=== PATIENT | female | born 1955 | race Caucasian/White ===

== ENCOUNTER 2017-02-05 18:33 | Emergency (ER) | payer MEDICARE, MEDICAID ==
[2017-02-05] MEDS ORDERED: Aspirin Low Dose CHEW TAB* 81 MG PO ONE (19:49)
--- NOTE | 2017-02-05 20:22 | ED ---
Brenda Xavier Matthew, scribed for Moi Barrientos MD on 02/05/17 at 2021 . HPI Chest Pain - HPI Summary HPI Summary: A 61 y/o female presents to the ED with intermittent mid sternal chest pain since 16:00. The pain is rated 4/10 in severity and described as dull. The patient was sitting when the pain began. She's had 6 episodes since her pain started. She took an aspirin [employer]. The patient had similar symptoms a month ago. - History of Current Complaint Chief Complaint: EDChestPainROMI Time Seen by Provider: 02/05/17 19:40 Hx Obtained From: Patient Onset/Duration: Started Hours Ago, Atraumatic, Still Present Time of Onset: 16:00 Timing: Intermittent Initial Severity: Moderate Current Severity: Moderate Pain Intensity: 4 Pain Scale Used: 0-10 Numeric Chest Pain Location: Mid Sternal Chest Pain Radiates: No Character: Dull/Aching Aggravating Factor(s): Nothing Alleviating Factor(s): Nothing Associated Signs and Symptoms: Positive: Chest Pain - Allergy/Home Medications Allergies/Adverse Reactions: Allergies Allergy/AdvReac Type Severity Reaction Status Date / Time Latex Allergy Unknown Verified 02/05/17 18:36 Reaction Details cleanig supplies Allergy Headache Uncoded 02/05/17 18:37 PMH/Surg Hx/FS Hx/Imm Hx Endocrine/Hematology History: Denies: Hx Diabetes Cardiovascular History: Reports: Hx Hypertension Denies: Hx Pacemaker/ICD History: Denies: Hx Renal Disease Sensory History: Denies: Hx Hearing Aid Psychiatric History: Denies: Hx Panic Disorder - Surgical History Surgery Procedure, Year, and Place: TONSILECTOMY. TUBAL LIGATION, THEN REVERSAL. 2 ECTOPIC -1983 & 1992. ADHESION REMOVED ABD- AND APPENDECTOMY. BREAST REDUCTION -2001, DIFFCIULTY WITH IT A MONTH LATER WENT BACK INTO SURG, THEN 2009 MORE PROBLEMS WITH BREAST INCISIONS OPENING AND ALSO LUMPECTOMY- Rt (BENIGN). FIBROID CYST -UTERINE Infectious Disease History: Denies: Traveled Outside the [place] in Last 30 Days - Social History Alcohol Use: Occasionally Substance Use Type: Reports: None Smoking Status (MU): Never Smoked Tobacco Review of Systems Constitutional: Negative Eyes: Negative ENT: Negative Positive: Chest Pain Respiratory: Negative Gastrointestinal: Negative Genitourinary: Negative Musculoskeletal: Negative Skin: Negative Neurological: Negative Psychological: Normal All Other Systems Reviewed And Are Negative: Yes Physical Exam Vital Signs On Initial Exam: Initial Vitals Temp Pulse Resp BP Pulse Ox 98.3 F 123 19 125/97 98 02/05/17 18:34 02/05/17 18:34 02/05/17 18:34 02/05/17 18:34 02/05/17 18:34 Diagnostics - Vital Signs Vital Signs Temp Pulse Resp BP Pulse Ox 02/05/17 18:34 98.3 F 123 19 125/97 98 - Laboratory Result Diagrams: 02/05/17 20:55 02/05/17 20:55 Lab Statement: Any lab studies that have been ordered have been reviewed, and results considered in the medical decision making process. - Radiology CXR Xray Interpretation: No Acute Changes - IMPRESSION: FINDINGS SUGGESTIVE OF COPD , NO EVIDENCE FOR ACUTE FINDING. Radiology Interpretation Completed By: Radiologist - EKG 18:40 Cardiac Rate: Tachycardia - 111 bpm EKG Rhythm: Sinus Tachycardia EKG Interpretation: No STEMI Chest Pain Course/Dx - Course Assessment/Plan: A 61 y/o female presents to the ED with intermittent mid sternal chest pain since 16:00. The pain is rated 4/10 in severity and described as dull. The patient was sitting when the pain began. She's had 6 episodes since her pain started. She took an aspirin [employer]. The patient had similar symptoms a month ago. CXR shows findings suggestive of copd, no evidence for acute finding. EKG shows sinus tachycardia at 111 bpm. In the ED course, the patient was given aspirin. She did well in the ED and will be discharged home to follow-up with her PCP. - Diagnoses Provider Diagnoses: Palpitations Discharge - Discharge Plan Condition: Stable Disposition: HOME Patient Education Materials: Chest Pain (ED) Referrals: Leslie Simental MD [Primary Care Provider] - 2 Days Additional Instructions: Please follow-up with your primary care physician in 2 days. The documentation as recorded by the Brenda velazquez Matthew accurately reflects the service I personally performed and the decisions made by me, Moi Barrientos MD.
--- NOTE | 2017-02-05 20:53 | RAD ---
INDICATION: Chest pain. COMPARISON: There are no prior studies available for comparison. TECHNIQUE: Dual-energy PA and lateral views of the chest were obtained. FINDINGS: The heart is within normal limits in size. Mediastinal and hilar contours appear within normal limits. The lungs are hyperinflated and clear. No pleural effusion is seen. IMPRESSION: FINDINGS SUGGESTIVE OF COPD, NO EVIDENCE FOR ACUTE FINDING.
[2017-02-05 21:09] LABS: Hematocrit 41 % (35-47); Hemoglobin 13.5 g/dl (12.0-16.0); Mean Corpuscular HGB Conc 33 g/dl (31-36); Mean Corpuscular Hemoglobin 30 pg (27-31); Mean Corpuscular Volume 91 fL (80-97); Mean Platelet Volume 9 um3 (7.4-10.4); Red Blood Count 4.49 10^6/ul (4.0-5.4); Red Cell Distribution Width 15 % (10.5-15); White Blood Count 8.3 10^3/ul (3.5-10.8)
[2017-02-05 21:31] LABS: Albumin 4.1 g/dL (3.2-5.2); Calcium 9.7 mg/dL (8.6-10.3); EGFR African American 62.7 (>60); EGFR Non-African American 48.8 (>60); Globulin 3.7 g/dL (2-4); Magnesium 1.7 mg/dL (1.9-2.7); Potassium 3.7 mmol/L (3.5-5.0); Total Bilirubin 0.3 mg/dL (0.2-1.0); Total Protein 7.8 g/dL (6.4-8.9)
[2017-02-06 01:15] VITALS: BP 133/94
== END 2017-02-06 00:50 | disposition home or self-care (01) ==
LOC: ED 18:33
DX: R07.9 Chest pain, unspecified (principal); R00.2 Palpitations
CPT/HCPCS: 36415; 71020; 80053; 83605; 83735; 84484; 85025; 93005; 99283; A9270-GY

== ENCOUNTER 2018-05-27 23:13 | Inpatient (IN) | payer MEDICARE, MEDICAID ==
--- OUTSIDE RECORDS SUMMARY | 2018-05-28 00:10 | XMS REPORT ---
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 6.4-8.9 Albumin 3.9 g/dL 3.2-5.2 Globulin 3.0 g/dL 2-4 Albumin/Globulin Ratio 1.3 1-3 Total Bilirubin 0.40 mg/dL 0.2-1.0 Alkaline Phosphatase 80 U/L 34-104 Alt 9 U/L 7-52 Ast 13 U/L 13-39 Egfr Non- 57.5 >60 Egfr 74.0 >60 19 Connective Tissue Panel 10/25/2016 Anti-Nuclear Antibody 4.0 U High 20 Cyclic Citrullinated Peptide <15.6 U 21 Laboratory test finding 10/25/2016 C Reactive Protein 12.87 mg/L High < 5.00 22 TSH (Thyroid Stim Horm) 3.42 mcIU/mL 0.34-5.60 Free T4 (Free Thyroxine) 0.99 ng/dL 0.61-1.12 Folic Acid (Folate) > 20.00 ng/mL >3.99 Vitamin B12 293 pg/mL 180-914 23 Angiotensin Converting Enzyme 46 U/L 8 - 53 24 Lyme Disease Serology Negative Negative 25 Laboratory test finding 06/10/2016 Vitamin D25 21 Low 30-100 Comprehensive Metabolic Prof 03/05/2016 Sodium 137 mEq/L 134-149 Potassium 3.7 mEq/L 3.6-5.5 Chloride 100 mEq/L 94-112 Carbon Dioxide 26 mEq/L 21-32 Glucose 87 mg/dL 70-105 BUN 21 mg/dL 6-26 Creatinine 0.9 mg/dL 0.6-1.4 BUN/Creat Ratio 23.3 CALC 8.0-36.0 Calcium 9.4 mg/dL 8.6-10.2 Total Protein 7.3 g/dL 6.4-8.3 Albumin 4.2 g/dL 3.8-5.5 Globulin 3.1 g/dL 2.0-4.8 A/G Ratio 1.4 CALC 0.6-2.3 Alk. Phosphatase 91 U/L 30-110 Alt (SGPT) 11 U/L 7-35 Ast (Sgot) 16 U/L 5-34 Total Bilirubin 0.3 mg/dL 0.2-1.3 GFR Non- >60 ml/min/1.73m^ >=60 GFR >60 ml/min/1.73m^ >=60 Laboratory test finding 03/05/2016 Free T4 1.26 ng/dL 0.75-1.54 TSH 3.41 mIU/L 0.50-6.00 CBC Electronic (Fma) 03/05/2016 WBC 5.8 3.6-9.6 RBC 4.19 3.90-5.70 Hemoglobin (Fma/CMC/CTX) 12.8 g/dL 12.1 - 17.2 Hematocrit (Fma/CMC/CTX) 39.2 % 36.1 - 50.3 Platelets 333 10^3/ul 150-400 Lymph% 31.1 % 17.0-48.0 Mixed% 4.5 Neutrophils % 64.4 Mean Corpuscular Vol 94 82.2-97.4 Mean Corpuscular Hemoglobin 30.7 27.6-33.3 Mean Corpuscular Hemo Concen 32.7 32.0-36.0 RDW 14.4 High 11.6-13.7 Mean Platelet Volume 7.8 5.5-11.0 CBC Electronic ([facility]) 08/23/2015 WBC 6.6 3.6-9.6 RBC 4.35 3.90-5.70 Hemoglobin (Fma/CMC/CTX) 13.4 g/dL 12.1 - 17.2 Hematocrit (Fma/CMC/CTX) 38.9 % 36.1 - 50.3 Platelets 320 10^3/ul 150-400 Lymph% 31.1 % 17.0-48.0 Mixed% 4.4 Neutrophils % 64.5 Mean Corpuscular Vol 90 82.2-97.4 Mean Corpuscular Hemoglobin 30.8 27.6-33.3 Mean Corpuscular Hemo Concen 34.4 32.0-36.0 RDW 15.3 High 11.6-13.7 Mean Platelet Volume 7.3 5.5-11.0 Laboratory test finding 08/23/2015 C-Reactive Protein, 13.2 mg/L High 0.0- 4.9 26 Quant Laboratory test finding 08/23/2015 Vitamin B-12 403 pg/mL 230-1050 Vitamin D25 23 Low 30-100 27 Serum Iron 140 g/dL 60-150 Ferritin 18 ng/mL 15-200 Comprehensive Metabolic Prof 08/23/2015 Sodium 138 mEq/L 134-149 Potassium 4.4 mEq/L 3.6-5.5 Chloride 100 mEq/L 94-112 Carbon Dioxide 25 mEq/L 21-32 Glucose 105 mg/dL 70-105 BUN 20 mg/dL 6-26 Creatinine 0.9 mg/dL 0.6-1.4 BUN/Creat Ratio 22.2 CALC 8.0-36.0 Calcium 9.3 mg/dL 8.6-10.2 Total Protein 7.5 g/dL 6.4-8.3 Albumin 4.3 g/dL 3.8-5.5 Globulin 3.2 g/dL 2.0-4.8 A/G Ratio 1.3 CALC 0.6-2.3 Alk. Phosphatase 83 U/L 30-110 Alt (SGPT) 20 U/L 7-35 Ast (Sgot) 23 U/L 5-34 Total Bilirubin 0.6 mg/dL 0.2-1.3 GFR Non- >60 ml/min/1.73m^ >=60 GFR >60 ml/min/1.73m^ >=60 Laboratory test finding 04/09/2014 C-Reactive Protein 18.0 mg/L High 0.0- 5.0 28 Lipase 31 U/L 1-64 28 CBC Electronic ([facility]ma) 04/09/2014 WBC 5.0 3.6-9.6 RBC 3.87 Low 3.90-5.70 Hemoglobin (Fma/CMC/CTX) 11.9 g/dL Low 12.1 - 17.2 Hematocrit (Fma/CMC/CTX) 36.0 % Low 36.1 - 50.3 Platelets 294 10^3/ul 150-400 Lymph% 44.5 % 17.0-48.0 Mixed% 5.2 Neutrophils % 50.3 Mean Corpuscular Vol 93 82.2-97.4 Mean Corpuscular Hemoglobin 30.6 27.6-33.3 Mean Corpuscular Hemo Concen 32.9 32.0-36.0 RDW 14.8 High 11.6-13.7 Mean Platelet Volume 8.0 5.5-11.0 Comprehensive Metabolic Prof 04/09/2014 Sodium 140 mEq/L 134-149 Potassium 3.8 mEq/L 3.6-5.5 Chloride 112 mEq/L 94-112 Carbon Dioxide 28 mEq/L 21-32 Glucose 89 mg/dL 70-105 BUN 19 mg/dL 6-26 Creatinine 1.1 mg/dL 0.6-1.4 BUN/Creat Ratio 17.3 CALC 8.0-36.0 Calcium 9.2 mg/dL 8.6-10.2 Total Protein 7.9 g/dL 6.3-8.1 Albumin 4.5 g/dL 3.8-5.5 Globulin 3.4 g/dL 2.0-4.8 A/G Ratio 1.3 CALC 0.6-2.3 Alk. Phosphatase 77 U/L 30-110 Alt (SGPT) 12 U/L 7-35 Ast (Sgot) 12 U/L 5-34 Total Bilirubin 0.4 mg/dL 0.2-1.3 Lipid Profile 04/09/2014 Cholesterol 218 mg/dL High 120-200 Triglycerides 143 mg/dL 30-200 HDL Cholesterol 68 mg/dL 30-85 LDL (Calculated) 121 CALC 0-129 VLDL Cholesterol 29 mg/dL 0-50 HDL Risk Factor 3.2 CALC 0.0-4.4 Laboratory test finding 04/09/2014 TSH 3.44 mIU/L 0.50-6.00 Amylase, Serum 58 U/L 20-105 Laboratory test finding 01/04/2014 Thin Prep W/HPV SEE NOTE 29 Ua - Micro (a) 07/27/2013 Appearance CLEAR Color YELLOW Glucose NEG Bilirubin NEG Ketones NEG SP Grav <=1.005 Blood SMALL PH 6.5 Protein NEG Urobil 0.2 Nitrite NEG Leukocytes (Fma/CMC/Centrex) SMALL Hyaline - /Lpf Granular - /Lpf WBC (a,Centrex) 3-6 RBC 3-4 Mucus - /Lpf Epith OCC /Lpf Bacteria TRACE /Hpf Amorphous - /Lpf Crystals, Fluid (Fma/CMC/CTX) - Z#Comments - Comprehensive Metabolic Prof 11/27/2009 Albumin 4.6 g/dL 3.8-5.5 Alk. Phos. 84 U/L 30-110 Alt (SGPT) 20 U/L 7-35 Ast (Sgot) 27 U/L 5-34 BUN 19 mg/dL 6-26 Calcium 9.6 mg/dL 8.6-10.2 Chloride 101 mEq/L 94-112 Creatinine 0.8 mg/dL 0.6-1.4 Carbon Dioxide 24 mEq/L 21-32 Glucose 101 mg/dL 70-105 Sodium 141 mEq/L 134-149 Total Bilirubin 0.3 mg/dL 0.2-1.3 Total Protein 7.0 g/dL 6.3-8.1 Potassium 3.9 mEq/L 3.6-5.5 Globulin 2.4 g/dL 2.0-4.8 A/G Ratio 1.9 Calc 0.6-2.2 BUN/Creat Ratio 22.8 Calc 8.0-36.0 Laboratory test finding 11/27/2009 B12 359 pg/mL 230-1050 CBC (a) 11/27/2009 WBC 4.0 3.6-9.6 RBC 4.31 3.90-5.70 Hemoglobin (Fma/CMC/CTX) 12.7 g/dL 12.1 - 17.2 Hematocrit (Fma/CMC/CTX) 40.0 % 36.1 - 50.3 Mean Corpuscular Vol 92.8 82.2-97.4 Mean Corpuscular Hemaglobin 29.5 27.6-33.3 Mean Corpuscular Hemo Concen 31.8 Low 33.0-36.0 Platelets 259 10^3/ul 150-400 Lymph% 39.1 20.5-51.1 Mixed% 7.2 Neutrophils % 53.7 RDW 14.5 High 11.6-13.7 Mean Platelet Volume 12.6 High 7.4-10.4 Laboratory test finding 11/27/2009 C-Reactive Protein 1.6 mg/dL High 0.0- 0.5 Laboratory test finding 11/27/2009 TSH 3.37 mIU/L 0.50-6.00 Free T4 0.78 ng/dL 0.75-1.54 Influenza A&B 10/18/2009 Influenza A NEGATIVE Influenza B NEGATIVE Laboratory test 09/12/2009 Rheumatoid Arth Factor 7.4 IU/mL 0.0-13.9 30 finding Lyme Igg/Igm (CX) 09/12/2009 Lyme Disease,Igg/Igm 0.19 INDEX Negative 30 , 31 Laboratory test 09/12/2009 Creatine Kinase 44 U/L 26-140 finding Laboratory test 08/23/2009 Antinuclear AB (Elza) POSITIVE Negative 32 finding Vitamin D, 25 Oh 31.3 ng/mL Low 32.0-100.0 32, 33 Antibody Titer 08/23/2009 Titer, Elza TITER=1:320 32, 34 CBC (a) 08/23/2009 WBC 6.0 3.6-9.6 RBC 4.14 3.90-5.70 Hemoglobin (Fma/CMC/CTX) 12.2 g/dL 12.1 - 17.2 Hematocrit (Fma/CMC/CTX) 38.2 % 36.1 - 50.3 Mean Corpuscular Vol 92.3 82.2-97.4 Mean Corpuscular Hemaglobin 29.5 27.6-33.3 Mean Corpuscular Hemo Concen 31.9 Low 33.0-36.0 Platelets 327 10^3/ul 150-400 Lymph% 24.7 20.5-51.1 Mixed% 8.0 Neutrophils % 67.3 RDW 14.5 High 11.6-13.7 Mean Platelet Volume 11.5 High 7.4-10.4 Comprehensive Metabolic Prof 08/23/2009 Albumin 4.5 g/dL 3.8-5.5 Alk. Phos. 77 U/L 30-110 Alt (SGPT) 10 U/L 7-35 Ast (Sgot) 23 U/L 5-34 BUN 17 mg/dL 6-26 Calcium 9.5 mg/dL 8.6-10.2 Chloride 103 mEq/L 94-112 Creatinine 1.0 mg/dL 0.6-1.4 Carbon Dioxide 24 mEq/L 21-32 Glucose 83 mg/dL 70-105 Sodium 140 mEq/L 134-149 Total Bilirubin 0.2 mg/dL 0.2-1.3 Total Protein 7.2 g/dL 6.3-8.1 Potassium 4.3 mEq/L 3.6-5.5 Globulin 2.7 g/dL 2.0-4.8 A/G Ratio 1.7 Calc 0.6-2.2 BUN/Creat Ratio 18.2 Calc 8.0-36.0 Laboratory test finding 08/23/2009 Magnesium 1.7 mEq/L 1.2-2.1 Vitamin D, 25 Hydroxy 07/19/2009 25-Hydroxy Vitamin D2 <4.0 ng/mL () 25-Hydroxy Vitamin D3 13 ng/mL () 25-Hydroxy Vitamin D Total 13 ng/mL () 35 CBC (Fma) 05/11/2009 WBC 5.4 3.6-9.6 RBC 4.36 3.90-5.70 Hemoglobin (Fma/CMC/CTX) 13.0 g/dL 12.1 - 17.2 Hematocrit (Fma/CMC/CTX) 40.0 % 36.1 - 50.3 Mean Corpuscular Vol 91.7 82.2-97.4 Mean Corpuscular Hemaglobin 29.8 27.6-33.3 Mean Corpuscular Hemo Concen 32.5 Low 33.0-36.0 Platelets 295 10^3/ul 150-400 Lymph% 37.8 20.5-51.1 Mixed% 3.7 Neutrophils % 58.5 RDW 14.9 High 11.6-13.7 Mean Platelet Volume 11.5 High 7.4-10.4 Laboratory test finding 05/11/2009 Amylase 141 U/L High 20-105 36 Comprehensive Metabolic Prof 05/11/2009 Albumin 4.6 g/dL 3.8-5.5 Alk. Phos. 105 U/L 30-110 Alt (SGPT) 19 U/L 7-35 Ast (Sgot) 26 U/L 5-34 BUN 18 mg/dL 6-26 Calcium 9.7 mg/dL 8.6-10.2 Chloride 100 mEq/L 94-112 Creatinine 0.8 mg/dL 0.6-1.4 Carbon Dioxide 25 mEq/L 21-32 Glucose 89 mg/dL 70-105 Sodium 143 mEq/L 134-149 Total Bilirubin 0.3 mg/dL 0.2-1.3 Total Protein 7.9 g/dL 6.3-8.1 Potassium 3.8 mEq/L 3.6-5.5 Globulin 3.4 g/dL 2.0-4.8 A/G Ratio 1.4 Calc 0.6-2.2 BUN/Creat Ratio 21.8 Calc 8.0-36.0 Ua - Micro (a) 08/17/2008 Appearance CLOUDY Color YELLOW Glucose NEG Bilirubin NEG Ketones NEG SP Grav 1.020 Blood TRACE PH 5.5 Protein NEG Urobil 0.2 Nitrite NEG Leukocytes (Fma/CMC/Centrex) MODERATE Hyaline - /Lpf Granular - /Lpf WBC (a,Centrex) 8-10 RBC 3-5 Mucus - /Lpf Epith FEW /Lpf Bacteria 3+ /Hpf Amorphous SMALL AMT /Lpf Crystals, Fluid (Fma/CMC/CTX) - Z#Comments - Ua - Micro ([facility]) 07/22/2008 Appearance CLEAR Color YELLOW Glucose NEG Bilirubin ICTO NEGATIVE Ketones TRACE SP Grav 1.025 Blood TRACE PH 6.0 Protein SSA NEGATIVE Urobil 0.2 Nitrite NEG Leukocytes (a/CMC/Centrex) NEG Lipid Profile 07/22/2008 Cholesterol 219 mg/dL High 120-200 HDL 72 mg/dL 30-85 Triglycerides 74 mg/dL 30-200 HDL Risk Factor 3.1 CALC Low 4.2-7.0 LDL (Calculated) 133 CALC High 0-129 VLDL (Calculated) 15 mg/dL 0-50 [facility] Metabolic [facility] 07/22/2008 Albumin 4.2 g/dL 3.8-5.5 Alk. Phos. 73 U/L 30-110 Alt (SGPT) 10 U/L 7-35 Ast (Sgot) 18 U/L 5-34 BUN 21 mg/dL 6-26 Calcium 9.8 mg/dL 8.6-10.2 Chloride 101 mEq/L 94-112 Creatinine 1.0 mg/dL 0.6-1.4 Carbon Dioxide 25 mEq/L 21-32 Glucose 98 mg/dL 70-105 Sodium 142 mEq/L 134-149 Total Bilirubin 0.3 mg/dL 0.2-1.3 Total Protein 7.6 g/dL 6.3-8.1 Potassium 3.6 mEq/L 3.6-5.5 Globulin 3.4 g/dL 2.0-4.8 A/G Ratio 1.3 Calc 0.6-2.2 BUN/Creat Ratio 20.2 Calc 8.0-36.0 1 Process Trainer: [id number] 2 Because ethnic data is not always readily available, this report includes an eGFR for both -Americans and non- Americans. The National Kidney Disease Education Program (NKDEP) does not endorse the use of the MDRD equation for patients that are not between the ages of 18 and 70, are , have extremes of body size, muscle mass, or nutritional status, or are non- or non-. According to the National Kidney Foundation, irrespective of diagnosis, the stage of the disease is based on the level of kidney function: Stage Description GFR(mL/min/1.73 m(2)) 1 Kidney damage with normal or decreased GFR 90 2 Kidney damage with mild decrease in GFR 60-89 3 Moderate decrease in GFR 30-59 4 Severe decrease in GFR 15-29 5 Kidney failure <15 (or dialysis) 3 1 sst 4 99th percentile=0.04 ng/mL Troponin results at [facility] and [facility] are not interchangeable. 5 Because ethnic data is not always readily available, this report includes an eGFR for both -Americans and non- Americans. The National Kidney Disease Education Program (NKDEP) does not endorse the use of the MDRD equation for patients that are not between the ages of 18 and 70, are , have extremes of body size, muscle mass, or nutritional status, or are non- or non-. According to the National Kidney Foundation, irrespective of diagnosis, the stage of the disease is based on the level of kidney function: Stage Description GFR(mL/min/1.73 m(2)) 1 Kidney damage with normal or decreased GFR 90 2 Kidney damage with mild decrease in GFR 60-89 3 Moderate decrease in GFR 30-59 4 Severe decrease in GFR 15-29 5 Kidney failure <15 (or dialysis) 6 [facility] Severe Sepsis and Septic Shock Management Bundle Measure requires all lactic acids initially measuring >2.0 mmol/L be repeated. 7 99th percentile=0.04 ng/mL Troponin results at [facility] and [facility] are not interchangeable. 8 REFERENCE VALUE <1.0 (Negative) Test Performed by: [place] [address] Tennis Instructor: William Vo II, M.D., Ph.D. 9 REFERENCE VALUE <1.0 (Negative) Test Performed by: [place] [address] Tennis Instructor: William Vo II, M.D., Ph.D. 10 ADDITIONAL INFORMATION This test was developed and its performance characteristics determined by [facility] in a manner consistent with CLIA requirements. This test has not been cleared or approved by the U.S. Food and Drug Administration. Test Performed by: [place] [address] Tennis Instructor: William Vo II, M.D., Ph.D. 11 Negative for dsDNA antibody by enzyme immunoassay. No further testing recommended. REFERENCE VALUE <30.0 (Negative) Test Performed by: [place] [address] Tennis Instructor: William Vo II, M.D., Ph.D. 12 RESULT: Compatible with early connective tissue disease. Test Performed by: [place] [address] Tennis Instructor: William Vo II, M.D., Ph.D. 13 REFERENCE VALUE <1.0 (Negative) 14 REFERENCE VALUE <1.0 (Negative) 15 REFERENCE VALUE <1.0 (Negative) 16 REFERENCE VALUE <1.0 (Negative) 17 REFERENCE VALUE <1.0 (Negative) 18 REFERENCE VALUE <1.0 (Negative) Test Performed by: [place] [address] Tennis Instructor: William Vo II, M.D., Ph.D. 19 Because ethnic data is not always readily available, this report includes an eGFR for both -Americans and non- Americans. The National Kidney Disease Education Program (NKDEP) does not endorse the use of the MDRD equation for patients that are not between the ages of 18 and 70, are , have extremes of body size, muscle mass, or nutritional status, or are non- or non-. According to the National Kidney Foundation, irrespective of diagnosis, the stage of the disease is based on the level of kidney function: Stage Description GFR(mL/min/1.73 m(2)) 1 Kidney damage with normal or decreased GFR 90 2 Kidney damage with mild decrease in GFR 60-89 3 Moderate decrease in GFR 30-59 4 Severe decrease in GFR 15-29 5 Kidney failure <15 (or dialysis) 20 Interpretation: Positive (3.0-5.9) REFERENCE VALUE <=1.0 (Negative) 21 REFERENCE VALUE <20.0 (Negative) Test Performed by: [place] [address] Tennis Instructor: William Vo II, M.D., Ph.D. 22 Acute inflammation: >10.00 23 Normal Range 180 to 914 Indeterminate Range 145 to 180 Deficient Range <145 24 Test Performed by: [place] [address] Tennis Instructor: William Vo II, M.D., Ph.D. 25 Serologic response to B. burgdorferi infection is not detected, but cannot rule out early infection during which low or undetectable antibody levels to B. burgdorferi may be present. If clinically indicated, a new serum specimen should be submitted in 7-14 days. Test Performed by: [facility] [facility] [address] [place] [address] Tennis Instructor: William Vo II, M.D., Ph.D. 26 1S 27 result abelardo''d 28 FASTING; 1 SST; 1 YELLOW TOP 29 [employer], [employer]. DEPARTMENT OF PATHOLOGY or Extension 7564 COMBINED HPV / LAY OUT FORMER CYTOLOGY REPORT Patient: FLORA CHOU : 1955 AGE: 58 Y SEX: F Acct: [id number] Procedure Date: 01/04/2014 Date Received: 01/05/2014 Requesting Provider: CANDACE KENDRICK NP Location: [facility] [place] Case No. [id number] Requisition #: [id number] CYTOLOGIC INTERPRETATION: SPECIMEN ADEQUACY SATISFACTORY FOR EVALUATION. THE PRESENCE OF TRANSFORMATION ZONE COMPONENT CANNOT BE DETERMINED DUE TO ATROPHIC CHANGES. GENERAL CATEGORIZATION NEGATIVE FOR INTRAEPITHELIAL LESIONS OR MALIGNANCY RECOMMENDATIONS See Related Reference Test Result below. Refer to the corresponding web sites for 2012 updated general recommendation guidelines of U.S. preventive service task force for cervical cancer screening, and www.asccp.org//xrdzyiwbs2075. COMMENTS Thin Prep Pap tests are examined with an FDA approved location-guidance system. RELATED REFERENCE TEST RESULT: HPV: "HIGH RISK" Source: CERVICAL Result: NEGATIVE Test Method: HC2 Performing Location: METHODOLOGY: HPV high risk is performed with the FDA approved Digene HC2 method whenever the specimen is cellular enough and the quantity of sample remaining in the vial after Thin Prep PAP slide preparation equals or greater than 4 ml. In cases of smaller sample (0.5 to 3.9 ml) the HPV high risk testing will be performed with Low Volume rfx. ( RN) Digene Hybrid Capture (HC2). FDA approved and detects 13 "high risk" HPV types (16/18/31/33/35/39/45/51/52/56/58/59/68) without differentiation. ( BN) Low Volume rfx detects fourteen "high risk" HPV types (16/18/31/33/35/39/45/51/52/56/58/59/66/68) without differentiation. PATIENT DATA: SPECIMEN SUBMITTED: * * (HPVR) THIN PREP W/HPV * * CERVICAL/ENDOCERVICAL RELEVANT HISTORY: LMP: ??/??/2001 Prev.normal: 2009 NORMAL Menopause: Y : 1 Para: 1 ADDITIONAL COPIES SENT TO: Screened/Rescreened Electronically Signed Sign Out Date/Time: by: by: STAN BRODY, 01/10/2014 09:49 CT(ASCP) Note: The Pap smear is a screening test designed to aid in the detection of premalignant and malignant conditions of the uterine cervix. It is not a diagnostic procedure and should not be used as the sole means of detecting cervical cancer. Both false-positive and false-negative reports do occur. 00 UA Pap Smear performed at [employer] Dir: Irma Chance MD, [address] [facility] [address] 01 internal combustion engine assembler [facility] [place] Dir: Dakota Velazquez MD, [address] [facility] [address] 02 BN [facility] [place] Dir: William Doshi MD, [address] [facility] [address] For inquiries regarding HPV test results, the physician may contact [facility]: [phone] . 30 2 SST 31 < or=0.80 Negative 0.81 - 1.20 Equivocal >1.20 Positive 32 2SST 33 Recent studies consider the lower limit of 32.0 ng/mL to be a threshold for optimal health. Crespo BW. J Nutr. 2004;135(2):317-22. 34 HOMOGENOUS PATTERN 35 Interpretation: 10-24 (mild to moderate deficiency) -- REFERENCE VALUE -- 25-HYDROXY D TOTAL (D2+D3) Optimum levels in the normal population are 25-80 Test Performed by: [facility] Dpt of Lab Med and Pathology [address] [place] [address] Tennis Instructor: Chau Peterson III, M.D. 36 RESULT ABELARDO'D Procedures Date CPT Code Description Status 02/12/2018 96321 Brief Emotional/Behav Assessment W/ Scoring Doc Per Completed Standard Inst 03/05/2016 24584 Electrocardiogram Complete Completed 04/08/2014 48442 Pulse Oximetry Completed 02/15/2010 32407 Jayla-Noninvasive physiologic studies of upper or lower Completed extremity 10/27/2008 Mammogram Completed Encounters Type Date Location Provider CPT E/M Dx Office Visit 05/15/2018 3:30p [facility] Leslie Simental, 51731 F43.23 Marlena R10.814 K59.09 R07.89 Office Visit 02/12/2018 11:20a [facility] Leslie Simental M.D. 90215 F41.1 F90.0 G47.419 Office Visit 07/11/2017 11:20a [facility] Leslie Simental M.D. 60609 R06.02 M17.12 G47.09 Z23 Office Visit 05/21/2017 1:40p [facility] Leslie Simental M.D. 72328 G47.33 J44.9 R68.89 G31.84 Office Visit 04/14/2017 11:00a [facility] Leslie Simental M.D. 06076 I10 F41.1 G31.84 M79.7 Office Visit 02/10/2017 12:40p [facility] Leslie Simental M.D. 94605 R07.89 K59.09 Office Visit 12/17/2016 2:40p [facility] Leslie Simental M.D. 39408 G31.84 R53.82 K59.09 Office Visit 06/19/2016 1:40p [facility] Leslie Simental M.D. 88097 E55.9 R53.82 G31.84 Office Visit 06/10/2016 1:40p [facility] Office Leslie Simental M.D. 55523 E55.9 R53.82 Office Visit 03/05/2016 1:30p Main Office Israel Bah-C 80443 R53.83 I10 Office Visit 09/18/2015 1:00p Main Office LUIS EDUARDO [place] 32843 M60.89 F32.9 F41.1 I10 G47.419 Office Visit 08/23/2015 3:50p Main Office Dm Phoenix M.D. 83032 R53.83 Office Visit 05/20/2015 10:15a Main Office Sahara PierreKEISHA galvanP 02104 729.1 311 Office Visit 12/15/2014 3:20p [facility] Leslie Simental M.D. 13616 729.1 311 300.00 347.00 401.9 Office Visit 08/16/2014 2:30p Main Office Lexii PastorIsrael-C 76832 729.1 780.71 401.9 311 300.00 347.00 724.2 V04.81 Office Visit 04/08/2014 1:00p Main Office Shraddha NELSY Briggs 66435 724.2 780.71 311 300.00 401.9 347.00 530.81 729.1 780.52 Office Visit 01/04/2014 2:30p [facility] Israel Bah-C 03583 V72.31 729.1 780.71 V76.10 V76.41 Office Visit 07/27/2013 10:00a [facility] Andrade Lopez M.D. 88333 V70.0 V77.91 V76.10 V76.51 729.1 311 300.00 307.49 780.71 401.9 v06.5 599.72 Office Visit 07/26/2013 5:00p Main Office Shraddha Briggs DIRECTOR [employer] 08262 v04.81 724.2 719.45 Office Visit 03/11/2013 7:20p Main Office Andrade Lopez M.D. 52379 729.1 347.00 311 300.00 307.49 780.71 Office Visit 02/17/2013 11:30a [facility] Kohlinp-C 54255 729.1 347.00 311 300.00 307.49 780.79 Office Visit 04/12/2010 3:00p Main Office Andrade Lopez M.D. 92201 729.1 724.2 347.00 311 300.00 307.49 Office Visit 02/28/2010 7:30p Main Office Andrade Lopez M.D. 15932 729.1 724.2 347.00 311 300.00 307.49 Office Visit 02/06/2010 4:20p Main Office Leslie Simental M.D. 97506 443.9 Office Visit 11/27/2009 1:30p [facility] Office Andrade Lopez M.D. 10614 729.1 724.2 347.00 311 300.00 780.79 307.49 V04.81 Office Visit 10/18/2009 2:00p [facility] Office Andrade Lopez M.D. 76769 465.9 787.91 Office Visit 09/12/2009 3:30p [facility] Office Andrade Lopez M.D. 83845 729.1 724.2 Office Visit 09/05/2009 4:30p [facility] Office Andrade Lopez M.D. 63114 729.1 796.9 V04.81 Office Visit 08/23/2009 1:20p [facility] Office Andrade Lopez M.D. 79119 729.1 269.2 709.9 Office Visit 05/11/2009 4:00p Main Office Andrade Lopez M.D. 94309 789.07 724.2 Office Visit 02/13/2009 3:50p [facility] Office Andrade Lopez M.D. 65915 347.00 340 729.1 307.49 Office Visit 10/03/2008 4:00p [facility] Office Andrade Lopez M.D. 24499 340 729.1 724.2 Office Visit 08/17/2008 4:10p [facility] Office Andrade Lopez M.D. 85476 340 729.1 599.70 V04.81 Office Visit 07/22/2008 9:00a [facility] Office Andrade Lopez M.D. 07811 V70.0 V76.51 V77.91 V76.10 V49.81 340 729.1 599.70 Office Visit 05/23/2008 2:40p [facility] Office Andrade Lopez M.D. 88640 729.1 347.00 780.79 311 Office Visit 02/02/2008 3:20p [facility] Office Andrade Lopez M.D. 46413 347.00 307.49 Office Visit 01/21/2008 3:00p Main Office Andrade Lopez M.D. 66306 780.79 347.00 Office Visit 01/12/2008 2:10p Main Office Andrade Lopez M.D. 77508 729.1 780.79 311 307.49 Office Visit 12/01/2007 2:10p Main Office Andrade Lopez M.D. 70462 729.1 Office Visit 11/17/2007 2:00p Main Office Andrade Lopez M.D. 94065 340 729.1 311 300.00 V04.81 Plan of Care Future Appointment(s):06/16/2018 12:00 pm - [id number]/15/2018 - Leslie Simental M.D.F43.23 Adjustment disorder with mixed anxiety and depressed moodNew Medication:Wellbutrin XL 150 mgComments:increase wellbutrin XL to 450 mg a day. will add a 150mg dose to the 300 you are naymichelleberny elam.Follow up:4-6 weeks. re-evaluate new dose of wellbutrin.R10.814 Left lower quadrant abdominal runwhxqgsmC89.09 Other constipationNew Medication: Miralax 3350 NFComments:use miralax every night for constipation.R07.89 Other chest painAllComments:~B_~U_Medication Management~b_~u_ Patient Understands medications she's taking? Yes No Are there Barriers to Adherence? Yes No Has the patient been asked about herbal supplements and therapies, and OTC meds? Yes No
--- OUTSIDE RECORDS SUMMARY | 2018-05-28 00:11 | XMS REPORT ---
:1955 External Reference #:[id number] Author Organization [facility] Address [address] [place] [address] Phone [phone] Care Team Providers Name Role Phone Leslie Simental Care Team Information Wrapper Counter Unavailable Leslie Simental Primary Care Physician Unavailable Payers Type Date Identification Numbers Payment Provider Subscriber Medicare Primary Effective: Policy Number: Medicare [facility] Flora Chou 1999 [id number] PayID: [id number] [address] [place] [address] Medicaid Effective: 2015 Policy Number: [id number] Medicaid [place] Flora Chou PayID: [id number] [address] [facility] [place] [address] Problems Date Description Provider Status Onset: 11/27/2009 [...] Myalgia/myositis - LUIS EDUARDO Brody Active Onset: 02/12/2018 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 Active Family History Date Family Member(s) Problem(s) Comments General Coronary Artery Disease (CAD) PFG from [place] 79 yo. PGM - several [place]. age 51 from [place]. General Lived with her biological family and an adopted family at various different times. Father Lymphoma - Non Hodgkins Father 65 yo Mother Stomach Cancer at 71 yo First Son healthy? [place] with and son. Number of Siblings Siblings:2 half brothers and one half sister. Hx unknown First Sister s/p whipple for pancreatic cancer. doing well. in Adopted family. 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 General On disability due to [...] 150mg 90tab 1 by mouth F43.23 Leslie L. ER 24HR s every day Kamille, along with MeliaDAlisa the 300mg dose. Miralax 05/15 Active Packet [id number] 36uni 1 packet in K59.09 Leslie L. ts 8 oz water Kamille, every night M.DAlisa Advair Diskus 05/21 Active Aerosol 250-50mcg 60uni inhale one J44.9 Marielle /2017 /Dose ts puff by Ricco, mouth twice [employer] daily Aspirin Ec Low 02/10 Active Tablets 81mg 100ta 1 by mouth R07.89 Leslie LAlisa Dose /2016 DR nikko Simental M.D. Vitamin B 01/27 Active Tablets 1 by mouth Unknown every day Methylphenidate 02/06 Active Capsules 10mg 60cap 1 by mouth G47.419 Marielle HCL ER (CD) ER s twice a day Ricco, [facility] Cyclobenzaprine 09/18 Active Tablets 10mg 60tab Take 1 M60.89 Leslie L. HCL /2014 s Tablet By Kamille, Mouth Two M.D. Times Daily as Needed Wellbutrin XL 09/18 Active Tablets 300mg 90tab Take 1 F32.9 Sahara ER 24HR s Tablet By Dilma, Mouth Every [employer] Day Zolpidem 09/18 Active Tablets 10mg 30tab Take 1 F41.1 Sahara Tartrate s Tablet By Dilma, Mouth AT [employer] Bedtime Maximum Daily Dose Of 1 Tablet Per Day Prilosec 09/14 Active Capsules 20mg 30cap Take [address] s Capsule By Dilma, Mouth Every [employer] Day Losartan 07/27 Active Tablets 25mg 90tab Take 1 I10 Sahara Potassium s Tablet By Dilma, Mouth Every [employer] Day Triamterene/Hydr 06/28 Active Capsules 37.5-25mg 90cap Take 1 I10 Sahara ochlorothiazide s Capsule By Dilma, Mouth Every [employer] Day Nortriptyline Active Capsules 10mg 1 at [...] s three times Dilma, - a day [employer] 04/14 Vitamin D 06/10 Hx Capsules [id number] 12cap take 1 E55.9 Leslie L. (Ergocalciferol) s capsule by Kamille, - mouth once M.D. 02/10 weekly 12 weeks. Methylphenidate 09/18 Hx Capsules 10mg 60cap one tab by G47.419 Sahara HCL ER s mouth twice Dilma, - a day [employer] 02/06 Lidoderm 09/18 Hx Patches 5% 60uni 1 patch to M60.89 Leslie L. ts knees margarito Simental, - for 12 hour, M.D. 02/10 off for 12h Nasacort Allergy 09/18 Hx Aerosol 55mcg/Act 1unit use two Candace 24HR s sprays in [facility], - each nostril Afnp-C 03/18 twice a day /2015 Wellbutrin XL 09/14 Hx Tablets 150mg 90tab 1 by mouth 311 Leslie LAlisa ER 24HR s every day Leila Simental.DAlisa 09/18 Zolpidem 05/20 Hx Tablets 10mg 30tab 1 by mouth 729.1 Sahara Tar s every at [facility], - bedtime [employer] 08/23 Cymbalta 05/[address] 60mg 30cap 1 by mouth 729.1 Sahara /2014 Part s every day Dilma, - [employer] 09/18 311 Gabapentin 05/20/2015 - Hx Capsules [...] chou [address], [place] [address] Omeprazole 01/20/2014 - Hx Capsules 20mg 90caps [...] 2 po q [facility] Azithromycin 10/18/2009 - Hx Tablets 250mg 6tabs 2 po today 465.9 Zafar A. 11/27/2009 and 1 po x Marlena Lopez 4 days Triamterene-HCTZ 08/27/2009 - Hx Caps 37.5-25 90caps Take 1 Zafar A. 10/18/2009 mg Capsule By Marlena Lopez Mouth Once Daily Vitamin D 08/23/2009 - Hx Capsules [id number] 4caps take one Zafar A. 02/17/2013 it [...] cpap face Marlena Lopez mask dx 307.9 Triamterene/[place] 11/25/2008 - Hx Caps 37.5-25 90caps take [...] 780.52 Marielle 05/20/2015 every Ricco, night at [facility] bedtime as needed sleep generic ok pudt [...] Packet 150mg 30units 1 po q hs Zfaar A. 12/01/2007 Marlena Lopez Vitamin C/Fariba 11/17/2007 - Hx Tablets 500mg bid Zafar A. Hips 05/20/2015 Marlena Lopez Glycolax 11/17/2007 - Hx Powder [id number] 1Bottl 1 cap Zafar A. 10/18/2009 mixed with Marlena Lopez water at hs Astelin 11/17/2007 - Hx Solution 137mcg/ 1units 1 spray q Zafar A. 11/27/2009 [place] nostrjose juan Lopez M.D. bid Nasacort Aq [...] CPT Code Status Date Vaccine Lot # [id number] Given 07/11/2017 Influenza Vac, Quadrivalent, Slit Virus, Im [id number] Given 08/28/2015 Influenza Vac, Quadrivalent, Slit Virus, Im [id number] Given 08/16/2014 Split Influenza Medicare: Fluzone [id number] Given 07/27/2013 Tdap Tetanus, W Pertussis [id number] Given 07/26/2013 Split Influenza Medicare: Fluzone [id number] Given 07/26/2013 DO Not Use Split Influenza Virus Vaccine [id number] Given 11/27/2009 DO Not Use Split Influenza Virus Vaccine [id number] Given 08/17/2008 DO Not Use Split Influenza Virus Vaccine [id number] 22552 Given 11/17/2007 DO Not Use Split Influenza Virus Vaccine [id number] Vital Signs Date Vital Result Comment 05/15/2018 [...] Test Date Test Result H/L Range Note Laboratory test finding 02/05/2017 Troponin I 0.01 ng/mL <0.04 1 CBC Auto Diff 02/05/2017 White Blood Count [...] 0-2 Nucleated Red Blood Cells % 0.1 Laboratory test finding 02/05/2017 Lactic Acid 1.6 mmol/L 0.5-2.0 2 Troponin I 0.00 ng/mL <0.04 3 Comp Metabolic Panel 02/05/2017 Sodium 137 mmol/L [...] Egfr Non- 48.8 >60 Egfr 62.7 >60 4 Laboratory test finding 02/05/2017 Magnesium 1.7 mg/dL Low 1.9-2.7 CBC Auto Diff 10/25/2016 White Blood Count [...] Egfr Non- 57.5 >60 Egfr 74.0 >60 5 Laboratory test finding 10/25/2016 C Reactive Protein 12.87 mg/L High < 5.00 6 TSH (Thyroid Stim Horm) 3.42 mcIU/mL 0.34-5.60 Free T4 (Free Thyroxine) 0.99 ng/dL 0.61-1.12 Folic Acid (Folate) > 20.00 ng/mL >3.99 Vitamin B12 293 pg/mL 180-914 7 Angiotensin Converting Enzyme 46 U/L 8 - 53 8 Lyme Disease Serology Negative Negative 9 Connective Tissue Panel 10/25/2016 Anti-Nuclear Antibody 4.0 U High 10 Cyclic Citrullinated Peptide <15.6 U 11 [place] Igg AB Reflex 10/25/2016 SS-A/Ro Antibody <0.2 U 12 SS-B/La Antibody <0.2 U 13 Sm (Cabrera) IgG Antibody <0.2 U 14 U1-nRNP Antibody <0.2 U 15 Scl-70 (Scleroderma) Antibody <0.2 U 16 Lavern-1 Antibody <0.2 U 17 Laboratory test finding 10/25/2016 Centromere Auto Abs <0.2 U 18 Ribosomal Antibody <0.2 U 19 Methylmalonic Acid Mma 0.25 nmol/mL <=0.40 20 Anti Double Stranded Dna Ab < 12.3 IU/mL 21 Interpretation See Comment 22 Laboratory test finding 06/10/2016 Vitamin D25 21 [...] High 11.6-13.7 Mean Platelet Volume 7.8 5.5-11.0 Laboratory test finding 08/23/2015 C-Reactive Protein, 13.2 mg/L High 0.0- 4.9 23 Quant Laboratory test finding 08/23/2015 Vitamin B-12 403 pg/mL 230-1050 Vitamin D25 23 Low 30-100 24 Serum Iron 140 g/dL 60-150 Ferritin 18 [...] >60 ml/min/1.73m^ >=60 GFR >60 ml/min/1.73m^ >=60 CBC Electronic (a) 08/23/2015 WBC 6.6 3.6-9.6 RBC 4.35 3.90-5.70 Hemoglobin (Fma/CMC/CTX) 13.4 g/dL 12.1 - 17.2 Hematocrit (Fma/CMC/CTX) 38.9 % 36.1 - 50.3 Platelets 320 10^3/ul 150-400 Lymph% 31.1 % 17.0-48.0 Mixed% 4.4 Neutrophils % 64.5 Mean Corpuscular Vol 90 82.2-97.4 Mean Corpuscular Hemoglobin 30.8 27.6-33.3 Mean Corpuscular Hemo Concen 34.4 32.0-36.0 RDW 15.3 High 11.6-13.7 Mean Platelet Volume 7.3 5.5-11.0 Comprehensive Metabolic Prof 04/09/2014 Sodium 140 [...] mIU/L 0.50-6.00 Amylase, Serum 58 U/L 20-105 CBC Electronic (a) 04/09/2014 WBC 5.0 3.6-9.6 RBC 3.87 Low 3.90-5.70 Hemoglobin (Fma/CMC/CTX) 11.9 g/dL Low 12.1 - 17.2 Hematocrit (Fma/CMC/CTX) 36.0 % Low 36.1 - 50.3 Platelets 294 10^3/ul 150-400 Lymph% 44.5 % 17.0-48.0 Mixed% 5.2 Neutrophils % 50.3 Mean Corpuscular Vol 93 82.2-97.4 Mean Corpuscular Hemoglobin 30.6 27.6-33.3 Mean Corpuscular Hemo Concen 32.9 32.0-36.0 RDW 14.8 High 11.6-13.7 Mean Platelet Volume 8.0 5.5-11.0 Laboratory test finding 04/09/2014 C-Reactive Protein 18.0 mg/L High 0.0- 5.0 25 Lipase 31 U/L 1-64 25 Laboratory test finding 01/04/2014 Thin Prep W/HPV SEE NOTE 26 Ua - Micro (a) 07/27/2013 Appearance CLEAR Color YELLOW Glucose NEG Bilirubin NEG Ketones NEG SP Grav <=1.005 Blood SMALL PH 6.5 Protein NEG Urobil 0.2 Nitrite NEG Leukocytes (Fma/CMC/Centrex) SMALL Hyaline - /Lpf Granular - /Lpf WBC (a,Centrex) 3-6 RBC 3-4 Mucus - /Lpf Epith OCC /Lpf Bacteria TRACE /Hpf Amorphous - /Lpf Crystals, Fluid (Fma/CMC/CTX) - Z#Comments - Laboratory test finding 11/27/2009 TSH 3.37 mIU/L 0.50-6.00 Free T4 0.78 ng/dL 0.75-1.54 Comprehensive Metabolic Prof 11/27/2009 Albumin 4.6 g/dL [...] C-Reactive Protein 1.6 mg/dL High 0.0- 0.5 Influenza A&B 10/18/2009 Influenza A NEGATIVE Influenza B NEGATIVE Laboratory test finding 09/12/2009 Creatine Kinase 44 U/L 26-140 Lyme Igg/Igm (CX) 09/12/2009 Lyme Disease,Igg/Igm 0.19 INDEX Negative 27 , 28 Laboratory test finding 09/12/2009 Rheumatoid Arth 7.4 IU/mL 0.0-13.9 27 Factor Laboratory test finding 08/23/2009 Magnesium 1.7 mEq/L 1.2-2.1 Comprehensive Metabolic 08/23/2009 Albumin 4.5 g/dL 3.8-5.5 Prof Alk. Phos. 77 U/L 30-110 Alt (SGPT) [...] Calc 0.6-2.2 BUN/Creat Ratio 18.2 Calc 8.0-36.0 CBC ([facility]) 08/23/2009 WBC 6.0 3.6-9.6 RBC 4.14 3.90-5.70 Hemoglobin (Fma/CMC/CTX) 12.2 g/dL 12.1 - 17.2 Hematocrit (Fma/CMC/CTX) 38.2 % 36.1 - 50.3 Mean Corpuscular Vol 92.3 82.2-97.4 Mean Corpuscular Hemaglobin 29.5 27.6-33.3 Mean Corpuscular Hemo Concen 31.9 Low 33.0-36.0 Platelets 327 10^3/ul 150-400 Lymph% 24.7 20.5-51.1 Mixed% 8.0 Neutrophils % 67.3 RDW 14.5 High 11.6-13.7 Mean Platelet Volume 11.5 High 7.4-10.4 Antibody Titer 08/23/2009 Titer, Elza TITER=1:320 29, 30 Laboratory test 08/23/2009 Antinuclear AB (Elza) POSITIVE Negative 29 finding Vitamin D, 25 Oh 31.3 ng/mL Low 32.0-100.0 29, 31 Vitamin D, 25 Hydroxy 07/19/2009 25-Hydroxy Vitamin D2 <4.0 ng/mL () 25-Hydroxy Vitamin D3 13 ng/mL () 25-Hydroxy Vitamin D Total 13 ng/mL () 32 CBC ([facility]) 05/11/2009 WBC 5.4 3.6-9.6 RBC 4.36 3.90-5.70 Hemoglobin (a/CMC/CTX) 13.0 g/dL 12.1 - 17.2 Hematocrit (a/CMC/CTX) 40.0 % 36.1 - 50.3 Mean Corpuscular Vol 91.7 82.2-97.4 Mean Corpuscular Hemaglobin 29.8 27.6-33.3 Mean Corpuscular Hemo Concen 32.5 Low 33.0-36.0 Platelets 295 10^3/ul 150-400 Lymph% 37.8 20.5-51.1 Mixed% 3.7 Neutrophils % 58.5 RDW 14.9 High 11.6-13.7 Mean Platelet Volume 11.5 High 7.4-10.4 Laboratory test finding 05/11/2009 Amylase 141 U/L High 20-105 33 Comprehensive Metabolic Prof 05/11/2009 Albumin 4.6 g/dL [...] Ratio 21.8 Calc 8.0-36.0 Ua - Micro ([facility]) 08/17/2008 Appearance CLOUDY Color YELLOW Glucose NEG Bilirubin NEG Ketones NEG SP Grav 1.020 Blood TRACE PH 5.5 Protein NEG Urobil 0.2 Nitrite NEG Leukocytes (Fma/CMC/Centrex) MODERATE Hyaline - /Lpf Granular - /Lpf WBC (a,Centrex) 8-10 RBC 3-5 Mucus - /Lpf Epith FEW /Lpf Bacteria 3+ /Hpf Amorphous SMALL AMT /Lpf Crystals, Fluid (Fma/CMC/CTX) - Z#Comments - Ua - Micro ([facility]) 07/22/2008 Appearance CLEAR Color YELLOW Glucose NEG Bilirubin ICTO NEGATIVE Ketones TRACE SP Grav 1.025 Blood TRACE PH 6.0 Protein SSA NEGATIVE Urobil 0.2 Nitrite NEG Leukocytes (Fma/CMC/Centrex) NEG Lipid Profile 07/22/2008 Cholesterol 219 mg/dL High 120-200 HDL 72 mg/dL 30-85 Triglycerides 74 mg/dL 30-200 HDL Risk Factor 3.1 CALC Low 4.2-7.0 LDL (Calculated) 133 CALC High 0-129 VLDL (Calculated) 15 mg/dL 0-50 Comprehensive Metabolic Prof 07/22/2008 Albumin 4.2 g/dL 3.8-5.5 Alk. Phos. [...] 0.6-2.2 BUN/Creat Ratio 20.2 Calc 8.0-36.0 1 99th percentile=0.04 ng/mL Troponin results at [facility] and [facility] are not interchangeable. 2 [facility] Severe Sepsis and Septic Shock Management Bundle Measure requires all lactic acids initially measuring >2.0 mmol/L be repeated. 3 99th percentile=0.04 ng/mL Troponin results at [facility] and [facility] are not interchangeable. 4 Because ethnic data is not always readily [...] 15-29 5 Kidney failure <15 (or dialysis) 5 Because ethnic data is not always [...] 5 Kidney failure <15 (or dialysis) 6 Acute inflammation: >10.00 7 Normal Range 180 to 914 Indeterminate Range 145 to 180 Deficient Range <145 8 Test Performed by: [place] [address] Neonatal Doctor: William Vo II, M.D., Ph.D. 9 Serologic response to B. burgdorferi infection is not detected, but cannot rule out early infection during which low or undetectable antibody levels to B. burgdorferi may be present. If clinically indicated, a new serum specimen should be submitted in 7-14 days. Test Performed by: [place] [address] Neonatal Doctor: William Vo II, M.D., Ph.D. 10 Interpretation: Positive (3.0-5.9) REFERENCE VALUE <=1.0 (Negative) 11 REFERENCE VALUE <20.0 (Negative) Test Performed by: [place] [address] Neonatal Doctor: William Vo II, M.D., Ph.D. 12 REFERENCE VALUE <1.0 (Negative) 13 REFERENCE VALUE <1.0 (Negative) 14 REFERENCE VALUE <1.0 (Negative) 15 REFERENCE VALUE <1.0 (Negative) 16 REFERENCE VALUE <1.0 (Negative) 17 REFERENCE VALUE <1.0 (Negative) Test Performed by: [place] [address] Neonatal Doctor: William Vo II, M.D., Ph.D. 18 REFERENCE VALUE <1.0 (Negative) Test Performed by: [place] [address] Neonatal Doctor: William Vo II, M.D., Ph.D. 19 REFERENCE VALUE <1.0 (Negative) Test Performed by: [address] [place] [address] Neonatal Doctor: William Vo II, M.D., Ph.D. 20 ADDITIONAL INFORMATION This test was developed and its performance characteristics determined by [facility] in a manner consistent with CLIA requirements. This test has not been cleared or approved by the U.S. Food and Drug Administration. Test Performed by: [place] [address] Neonatal Doctor: William Vo II, M.D., Ph.D. 21 Negative for dsDNA antibody by enzyme immunoassay. No further testing recommended. REFERENCE VALUE <30.0 (Negative) Test Performed by: [place] [address] Neonatal Doctor: William Vo II, M.D., Ph.D. 22 RESULT: Compatible with early connective tissue disease. Test Performed by: [place] [address] Neonatal Doctor: William Vo II, M.D., Ph.D. 23 1SST 24 result abelardo''d 25 FASTING; 1 SST; 1 YELLOW TOP 26 [facility] DEPARTMENT OF PATHOLOGY or Extension 7938 COMBINED HPV / TEST ENGINE MECHANIC CYTOLOGY REPORT Patient: FLORA CHOU : 1955 AGE: 58 Y SEX: F Acct: [id number] Procedure Date: 01/04/2014 Date Received: 01/05/2014 Requesting Provider: CANDACE KENDRICK NP Location: [facility] Case No. [id number] Requisition #: [id number] CYTOLOGIC INTERPRETATION: SPECIMEN ADEQUACY SATISFACTORY FOR EVALUATION. THE PRESENCE OF TRANSFORMATION ZONE COMPONENT CANNOT BE DETERMINED DUE TO ATROPHIC CHANGES. GENERAL CATEGORIZATION NEGATIVE FOR INTRAEPITHELIAL LESIONS OR MALIGNANCY RECOMMENDATIONS See Related Reference Test Result below. Refer to the corresponding web sites for 2012 updated general recommendation guidelines of U.S. preventive service task force for cervical cancer screening, and www.asccp.org//guhnbnlfo9179. COMMENTS Thin Prep Pap tests are examined with an FDA approved location-guidance system. RELATED REFERENCE TEST RESULT: HPV: "HIGH RISK" Source: CERVICAL Result: NEGATIVE Test Method: HC2 Performing Location: 01 METHODOLOGY: HPV high risk is performed with the FDA approved Digene HC2 method whenever the specimen is cellular enough and the quantity of sample remaining in the vial after Thin Prep PAP slide preparation equals or greater than 4 ml. In cases of smaller sample (0.5 to 3.9 ml) the HPV high risk testing will be performed with Low Volume rfx. (01 RN) Digene Hybrid Capture (HC2). FDA approved and detects 13 "high risk" HPV types (16/18/31/33/35/39/45/51/52/56/58/59/68) without differentiation. (02 BN) Low Volume rfx detects fourteen "high risk" HPV types (16/18/31/33/35/39/45/51/52/56/58/59/66/68) without differentiation. PATIENT DATA: SPECIMEN SUBMITTED: * * (HPVR) THIN PREP W/HPV * * CERVICAL/ENDOCERVICAL RELEVANT HISTORY: LMP: ??/??/2001 Prev.normal: 2008 NORMAL Menopause: Y : 1 Para: 1 [...] occur. 00 UA Pap Smear performed at [facility] Dir: [place], [address] [place] [id number] 01 [place] [facility] Dir: Dakota Velazquez MD, [address] [facility] [phone] 02 BN [facility] [place] Dir: William Doshi MD, [address] [place] [id number] For inquiries regarding HPV test results, the physician may contact [facility]: [phone] . 27 2 SST 28 < or=0.80 Negative 0.81 - 1.20 Equivocal >1.20 Positive 29 2SST 30 HOMOGENOUS PATTERN 31 Recent studies consider the lower limit of 32.0 ng/mL to be a threshold for optimal health. Zak BW. J Nutr. 2005 Nov;135(2):317-22. 32 Interpretation: 08-05 (mild to moderate deficiency) -- REFERENCE VALUE -- 25-HYDROXY D TOTAL (D2+D3) Optimum levels in the normal population are 25-80 Test Performed by: [facility] Dpt of Lab Med and Pathology [address] [place] [address] Neonatal Doctor: Chau Peterson III, M.D. 33 RESULT ABELARDO'D Procedures Date CPT Code Description Status 02/12/2018 98622 Brief Emotional/Behav Assessment W/ Scoring Doc Per Completed Standard Inst 03/05/2016 29718 Electrocardiogram Complete Completed 04/08/2014 54083 Pulse Oximetry Completed 02/15/2010 84107 Jayla-Noninvasive physiologic studies of upper or lower Completed extremity 10/27/2008 Mammogram Completed Encounters Type Date Location Provider CPT E/M Dx Office Visit 02/12/2018 11:20a [facility] Leslie Simental M.D. 77561 F41.1 F90.0 G47.419 Office Visit 07/11/2017 11:20a [facility] Leslie Simental M.D. 01132 R06.02 M17.12 G47.09 Z23 Office Visit 05/21/2017 1:40p [facility] Leslie Simental M.D. 53698 G47.33 J44.9 R68.89 G31.84 Office Visit 04/14/2017 11:00a [facility] Office Leslie Simental M.D. 98378 I10 F41.1 G31.84 M79.7 Office Visit 02/10/2017 12:40p [facility] Office Leslie Simental M.D. 25857 R07.89 K59.09 Office Visit 12/17/2016 2:40p [facility] Leslie Simental M.D. 98953 G31.84 R53.82 K59.09 Office Visit 06/19/2016 1:40p [facility] Office Leslie Simental M.D. 55512 E55.9 R53.82 G31.84 Office Visit 06/10/2016 1:40p [facility] Office Leslie Simental M.D. 71843 E55.9 R53.82 Office Visit 03/05/2016 1:30p Main Office Lisa Bah 06481 R53.83 I10 Office Visit 09/18/2015 1:00p Main Office LUIS EDUARDO [place] 13669 M60.89 F32.9 F41.1 I10 G47.419 Office Visit 08/23/2015 3:50p Main Office Dm Phoenix M.D. 63221 R53.83 Office Visit 05/20/2015 10:15a Main Office Sahara Perera, [facility] [address]011 729.1 311 Office Visit 12/15/2014 3:20p [facility] Leslie Simental M.D. 93574 729.1 311 300.00 347.00 401.9 Office Visit 08/16/2014 2:30p Main Office Lexii Pastor, [place]-C 05184 729.1 780.71 401.9 311 300.00 347.00 724.2 V04.81 Office Visit 04/08/2014 1:00p Main Office Shraddha Briggs, NELSY 25070 724.2 780.71 311 300.00 401.9 347.00 530.81 729.1 780.52 Office Visit 01/04/2014 2:30p [facility] Candace Kendrick, Afnp-C 45841 V72.31 729.1 780.71 V76.10 V76.41 Office Visit 07/27/2013 10:00a [facility] Andrade Lopez M.D. 23703 V70.0 V77.91 V76.10 V76.51 729.1 311 300.00 307.49 780.71 401.9 v06.5 599.72 Office Visit 07/26/2013 5:00p Main Office Shraddha Briggs, NELSY 82986 v04.81 724.2 719.45 Office Visit 03/11/2013 7:20p Main Office Andrade Lopez M.D. 90728 729.1 347.00 311 300.00 307.49 780.71 Office Visit 02/17/2013 11:30a [facility] Lexii Pastor Afnp-C 28419 729.1 347.00 311 300.00 307.49 780.79 Office Visit 04/12/2010 3:00p Main Office Andrade Lopez M.D. 48011 729.1 724.2 347.00 311 300.00 307.49 Office Visit 02/28/2010 7:30p [facility] Office Andrade Lopez M.D. 08812 729.1 724.2 347.00 311 300.00 307.49 Office Visit 02/06/2010 4:20p Main Office Leslie Simental M.D. 91476 443.9 Office Visit 11/27/2009 1:30p [facility] Andrade Lopez M.D. 96546 729.1 724.2 347.00 311 300.00 780.79 307.49 V04.81 Office Visit 10/18/2009 2:00p [facility] Andrade Lopez M.D. 91196 465.9 787.91 Office Visit 09/12/2009 3:30p [facility] Office Andrade Lopez M.D. 93666 729.1 724.2 Office Visit 09/05/2009 4:30p [facility] Andrade Lopez M.D. 39617 729.1 796.9 V04.81 Office Visit 08/23/2009 1:20p [facility] Office Andrade Lopez M.D. 53907 729.1 269.2 709.9 Office Visit 05/11/2009 4:00p Main Office Andrade Lopez M.D. 40035 789.07 724.2 Office Visit 02/13/2009 3:50p [facility] Andrade Lopez M.D. 41849 347.00 340 729.1 307.49 Office Visit 10/03/2008 4:00p [facility] Office Andrade Lopez M.D. 73071 340 729.1 724.2 Office Visit 08/17/2008 4:10p [facility] Office Andrade Lopez M.D. 06047 340 729.1 599.70 V04.81 Office Visit 07/22/2008 9:00a [facility] Office Andrade Lopez M.D. 46904 V70.0 V76.51 V77.91 V76.10 V49.81 340 729.1 599.70 Office Visit 05/23/2008 2:40p [facility] Office Andrade Lopez M.D. 19359 729.1 347.00 780.79 311 Office Visit 02/02/2008 3:20p [facility] Office Andrade Lopez M.D. 02551 347.00 307.49 Office Visit 01/21/2008 3:00p [facility] Office Andrade Lopez M.D. 00372 780.79 347.00 Office Visit 01/12/2008 2:10p [facility] Office Andrade Lopez M.D. 78543 729.1 780.79 311 307.49 Office Visit 12/01/2007 2:10p Main Office Andrade Lopez M.D. 77865 729.1 Office Visit 11/17/2007 2:00p Main Office Andrade Lopez M.D. 11433 340 729.1 311 300.00 V04.81 Plan of Care 05/15/2018 - Leslie Simental M.D.F43.23 Adjustment disorder with mixed anxiety and depressed moodNew Medication:Wellbutrin XL 150 mgComments:increase wellbutrin XL to 450 mg a day. will add a 150mg dose to the 300 you are alfina pamelamattluis.Follow up:4-6 weeks. re-evaluate new dose of wellbutrin.R10.814 Left lower quadrant abdominal tendernessNew Xrays:Abdomen Single Anteroposterior View (Flatplate)CT Abdomen & Pelvis W/VwmdyxtpW73.09 Other constipationNew Medication:Miralax 3350 NFComments:use miralax every night for constipation.AllComments:~B_~U_Medication Management~b_~u_ Patient Understands medications she's taking? Yes No Are there Barriers to Adherence? Yes No Has the patient been asked about herbal supplements and therapies, and OTC meds? Yes No
[2018-05-28 00:32] LABS: ABS Basophils 0 10^3/ul (0-0.2); ABS Eosinophils 0.1 10^3/ul (0-0.6); ABS Lymphocytes 2.5 10^3/ul (1.0-4.8); ABS Monocytes 0.5 10^3/ul (0-0.8); ABS Neutrophils 4.1 10^3/ul (1.5-7.7); ABS Nucleated RBC 0 10^3/ul; Eosinophil % 1.1 % (0-6); Hematocrit 38 % (35-47); Hemoglobin 12.8 g/dl (12.0-16.0); Lymphocyte % 34.9 % (25-47); Mean Corpuscular HGB Conc 34 g/dl (31-36); Mean Corpuscular Hemoglobin 31 pg (27-31); Mean Corpuscular Volume 91 fL (80-97); Mean Platelet Volume 8.3 um3 (7.4-10.4); Nucleated Red Blood Cells % 0; Platelet Count 335 10^3/ul (150-450); Red Blood Count 4.13 10^6/ul (4.00-5.40); Red Cell Distribution Width 15 % (10.5-15); White Blood Count 7.2 10^3/ul (3.5-10.8)
--- NOTE | 2018-05-28 00:49 | RAD ---
EXAM: CT Head Without Intravenous Contrast CLINICAL HISTORY: 62 years old, female; Signs and symptoms; Dizziness and weakness, facial; Additional info: NASH TECHNIQUE: Axial computed tomography images of the head/brain without intravenous contrast. COMPARISON: BRAIN WO MRI BRAIN W/O 2016-09-19 12:40 FINDINGS: Brain: Mild periventricular and subcortical low attenuation without adjacent mass effect. No gross acute or subacute CT ischemic changes, extra axial fluid collections, intraparenchymal hemorrhage, or midline shift. Ventricles: Normal. No ventriculomegaly. Symmetrical in position. Bones/joints: No acute fracture. No suspicious osseous lesions. Soft tissues: Normal. Sinuses: Normal as visualized. Mastoid air cells: Normal as visualized. No mastoid effusion. IMPRESSION: 1. No acute intracranial abnormality. 2. Mild chronic small vessel ischemic disease.
[2018-05-28 00:50] LABS: EGFR Non-African American 54.1 (>60)
[2018-05-28] MEDS ORDERED: NS 0.9% 1000 ML* 1,000 ML IV ONE (01:06)
--- NOTE | 2018-05-28 02:10 | ED ---
Dizziness - HPI Summary HPI Summary: Patient complains of sudden onset dizziness, weakness, flushed face starting at 10:30 PM tonight when patient started to get up out of a chair. Patient states she cannot maintain her balance to walk, feels like she is going to fall backwards. Does state that she has ambulated since onset of symptoms. Symptoms worsen when patient sits up or tries to walk. Symptoms resolved when patient sits still. Denies NASH, vision change, speech deficits, AMS, unilateral weakness, fever, cough, sore throat, CP, SOB, N/V, change in urine, prior CVA hx. Patient complains of chronic left lower quadrant abdominal pain for which she has been evaluated. Abdol/pelvic surgical history is adhesion removal, appendectomy, partial hysterectomy. - History Of Current Complaint Chief Complaint: EDWeakness Stated Complaint: GENERALIZED WEAKNESS Time Seen by Provider: 05/27/18 23:47 Hx Obtained From: Patient Onset/Duration: Still Present Timing: Constant Severity Initially: Severe Severity Currently: Severe Character: Room Spinning Aggravating Factor(s): Position Change Alleviating Factor(s): Rest, Lying Down Associated Signs And Symptoms: Positive: Unsteady Gait - Risk Factors CVA Risk Factor: Negative - Allergies/Home Medications Allergies/Adverse Reactions: Allergies Allergy/AdvReac Type Severity Reaction Status Date / Time latex Allergy Hives Verified 05/28/18 01:47 Home Medications: Home Medications Cyclobenzaprine TAB* [Flexeril 10 MG TAB*] 10 mg PO BID PRN 05/28/18 [History Confirmed 05/28/18] Losartan TAB* [Cozaar TAB*] 25 mg PO DAILY 05/28/18 [History Confirmed 05/28/18] Methylphenidate TAB* [Ritalin TAB*] 10 mg PO DAILY 05/28/18 [History Confirmed 05/28/18] Nortriptyline CAP* [Pamelor CAP*] 10 mg PO BEDTIME 05/28/18 [History Confirmed 05/28/18] Omeprazole CAP* [Prilosec CAP* 20 MG] 20 mg PO DAILY 05/28/18 [History Confirmed 05/28/18] Triamterene/HCTZ 75-50 MG* [Maxzide 75-50*] 50 mg PO DAILY 05/28/18 [History Confirmed 05/28/18] Zolpidem TAB* [Ambien TAB*] 10 mg PO BEDTIME PRN 05/28/18 [History Confirmed ] buPROPion SR TAB* [Wellbutrin SR TAB*] 450 mg PO DAILY 05/28/18 [History Confirmed 05/28/18] PMH/Surg Hx/FS Hx/Imm Hx Endocrine/Hematology History: Denies: Hx Anticoagulant Therapy, Hx Diabetes Cardiovascular History: Reports: Hx Hypertension Denies: Hx Cardiac Arrest, Hx Pacemaker/ICD History: Denies: Hx Dialysis, Hx Renal Disease Musculoskeletal History: Reports: Hx Osteoporosis Sensory History: Denies: Hx Hearing Aid Neurological History: Denies: Hx CVA Psychiatric History: Reports: Hx Panic Disorder - WITH MRIS - Surgical History Surgery Procedure, Year, and Place: TONSILECTOMY;. TUBAL LIGATION, THEN REVERSAL;. 2 ECTOPIC -1983 & 1992;. ADHESION REMOVED ABD- AND APPENDECTOMY;. BREAST REDUCTION -2001, DIFFCIULTY WITH IT A MONTH LATER WENT BACK INTO SURG, THEN 2009 MORE PROBLEMS WITH BREAST INCISIONS OPENING AND ALSO LUMPECTOMY- Rt (BENIGN);. FIBROID CYST -UTERINE; Infectious Disease History: No Infectious Disease History: Denies: Traveled Outside the [place] in Last 30 Days - Social History Alcohol Use: Occasionally Substance Use Type: Reports: None Smoking Status (MU): Never Smoked Tobacco Review of Systems Constitutional: Negative Eyes: Negative ENT: Negative Cardiovascular: Negative Respiratory: Negative Positive: Abdominal Pain Genitourinary: Negative Musculoskeletal: Negative Skin: Negative Positive: Weakness Psychological: Normal All Other Systems Reviewed And Are Negative: Yes Physical Exam - Summary Physical Exam Summary: Neuro exam remarkable for mild left side inconsistency finger to nose and left heel over right leg, and inability to balance and walk. Neuro otherwise nml. Triage Information Reviewed: Yes Vital Signs On Initial Exam: Initial Vitals BP 121/77 05/27/18 23:26 Vital Signs Reviewed: Yes Appearance: Positive: Well-Appearing Skin: Positive: Warm Head/Face: Positive: Normal Head/Face Inspection Eyes: Positive: Normal Neck: Positive: Supple Respiratory/Lung Sounds: Positive: Clear to Auscultation Cardiovascular: Positive: Normal Abdomen Description: Positive: Nontender Musculoskeletal: Positive: Normal Neurological: Positive: Sensory/Motor Intact, Alert, Oriented to Person Place, Time, CN Intact II-III, Facial Symmetry, Speech Normal. Negative: Receptive Aphasia, Expressive Aphasia, Disoriented, Facial Droop, Focal Deficit @, Slurred Speech, Dysphagia, Dysarthric Aphasia, Pronator Drift Present Psychiatric: Positive: Normal AVPU Assessment: Alert - Berenice Coma Scale Best Eye Response: 4 - Spontaneous Best Motor Response: 6 - Obeys Commands Best Verbal Response: 5 - Oriented Coma Scale Total: 15 Diagnostics - Vital Signs Vital Signs Temp Pulse Resp BP Pulse Ox 05/28/18 01:33 102 111/72 05/28/18 01:32 94 129/80 05/28/18 01:30 94 118/73 05/27/18 23:29 102 95 05/27/18 23:28 98.6 F 95 18 121/77 98 05/27/18 23:26 121/77 - Laboratory Lab Results: Lab Results 05/28/18 05/28/18 Range/Units 00:07 00:07 WBC 7.2 (3.5-10.8) 10^3/ul RBC 4.13 (4.00-5.40) 10^6/ul Hgb 12.8 (12.0-16.0) g/dl Hct 38 (35-47) % MCV 91 (80-97) fL MCH 31 (27-31) pg MCHC 34 (31-36) g/dl RDW 15 (10.5-15) % Plt Count 335 (150-450) 10^3/ul MPV 8.3 (7.4-10.4) um3 Neut % (Auto) 56.7 (38-83) % Lymph % (Auto) 34.9 (25-47) % [place] % (Auto) 6.9 (0-7) % Eos % (Auto) 1.1 (0-6) % Baso % (Auto) 0.4 (0-2) % Absolute Neuts (auto) 4.1 (1.5-7.7) 10^3/ul Absolute Lymphs (auto) 2.5 (1.0-4.8) 10^3/ul Absolute Monos (auto) 0.5 (0-0.8) 10^3/ul Absolute Eos (auto) 0.1 (0-0.6) 10^3/ul Absolute Basos (auto) 0 (0-0.2) 10^3/ul Absolute Nucleated RBC 0 10^3/ul Nucleated RBC % 0 Sodium 137 (135-145) mmol/L Potassium 3.9 (3.5-5.0) mmol/L Chloride 103 (101-111) mmol/L Carbon Dioxide 25 (22-32) mmol/L Anion Gap 9 (2-11) mmol/L BUN 15 (6-24) mg/dL Creatinine 1.03 H (0.51-0.95) mg/dL Est GFR ( Amer) 65.5 (>60) Est GFR (Non-Af Amer) 54.1 (>60) BUN/Creatinine Ratio 14.6 (8-20) Glucose 106 H (70-100) mg/dL Calcium 9.3 (8.6-10.3) mg/dL Total Bilirubin 0.30 (0.2-1.0) mg/dL AST 17 (13-39) U/L ALT 15 (7-52) U/L Alkaline Phosphatase 82 (34-104) U/L Troponin I 0.00 (<0.04) ng/mL C-Reactive Protein 15.86 H (<8.01) mg/L Total Protein 7.1 (6.4-8.9) g/dL Albumin 4.0 (3.2-5.2) g/dL Globulin 3.1 (2-4) g/dL Albumin/Globulin Ratio 1.3 (1-3) TSH 7.21 H (0.34-5.60) mcIU/mL Result Diagrams: 05/28/18 00:07 05/28/18 00:07 Lab Statement: Any lab studies that have been ordered have been reviewed, and results considered in the medical decision making process. - CT brain CT Interpretation: No Acute Changes CT Interpretation Completed By: Radiologist - EKG 1 Cardiac Rate: NL EKG Rhythm: Sinus Rhythm ST Segment: Non-Specific Ectopy: None National Institutes Of Health - NIH Scale Level of Consciousness: Alert/Keenly Responsive Ask Patient the Month and His/Her Age: Both Correct Ask Pt to Open/Close Eyes and Director Business Intelligence/Release Non-Paretic Hand: Both Correctly Best Gaze (Only Horizontal Eye Movement): Normal Visual Field Testing: No Visual Loss Facial Paresis-Pt to Smile & Close Eyes or Grimace Symmetry: Normal/Symmetrical Motor Function - Right Arm: No Drift-Holds 10 Seconds Motor Function - Left Arm: No Drift-Holds 10 Seconds Motor Function - Right Leg: No Drift-Holds 10 Seconds Motor Function - Left Leg: No Drift-Holds 10 Seconds - disabling symptoms include ataxia with leaning to the left, mild dysfunction of left side finger to nose and heel to knee test on left side Limb Ataxia-Must be out of Proportion to Weakness Present: Present in Two Limbs Sensory (Use Pinprick to Test Arms/Legs/Trunk/Face): Normal Best Language (Describe Picture, Name Items): No Aphasia Dysarthria (Read Several Words): Normal Extinction and Inattention: No Abnormality Total Score: 2 Dizzy Course/Dx - Course Course Of Treatment: Patient complains of sudden onset dizziness, weakness, flushed face starting at 10:30 PM tonight when patient started to get up out of a chair. Patient states she cannot maintain her balance to walk, feels like she is going to fall backwards. Symptoms worsen when patient sits up or tries to walk. Symptoms resolved when patient sits still. Denies NASH, vision change, speech deficits, AMS, unilateral weakness, fever, cough, sore throat, CP, SOB, N /V, change in urine, prior CVA hx. Patient complains of chronic left lower quadrant abdominal pain for which she has been evaluated. Abdol/pelvic surgical history is adhesion removal, appendectomy, partial hysterectomy. Physical exam:Neuro exam remarkable for mild left side inconsistency finger to nose and left heel over right leg, and inability to balance and walk. Neuro otherwise nml. Vital signs within normal limits. Labs unremarkable except for elevated TSH of 7.2. CT head negative for mass or hemorrhage. Patient symptoms did not improve on reevaluation. Discussed patient with Dr. Gallardo who after exam recommended Tele stroke activated and MRI head without contrast. Pt was evaluated by Dr Reese neurologis, and TPA was administered per his recommendation. CTA head and neck ordered. Will be transferred if large occlusion. If no large occlusion will be [place] [facility] [place] Patient signed out to Dr. Gallardo - Diagnoses Provider Diagnoses: Stroke Discharge - Sign-Out/Discharge Documenting (check all that apply): Sign-Out Patient Signing out patient TO: Cass Gallardo - Discharge Plan Condition: Good Referrals: Leslie Simental MD [Primary Care Provider] - - Billing Disposition and Condition Condition: GOOD
[2018-05-28 02:20] LABS: INR 0.93 (0.77-1.02)
[2018-05-28] MEDS ORDERED: ALTEPLASE IV ONE (02:43)
[2018-05-28] MEDS ORDERED: Alteplase* 100 MG VIAL ONE (02:43)
[2018-05-28] MEDS ORDERED: Alteplase* 100 MG VIAL IVPB ONE (02:44)
[2018-05-28] MEDS ORDERED: Iodixanol* (CONTRAST) 320 MG/ML 100 ML SDV IV ONE (02:52)
--- NOTE | 2018-05-28 05:14 | ED ---
Progress - Progress Note Progress Note: 62 years old female with past medical history fibromyalgia and hypertension. Patient brought to the emergency room by EMS because she did have acute onset of feeling dizzy with feeling off balance. Patient denies nausea or vomiting however she's been having diarrhea, patient denies other symptoms or visual symptoms no focal weakness or numbness to tingling. Patient initially was seen by the physician assistant chief nursing officer Moi Whittington, Around 1:30 PM he did ask me to evaluate patient with him and that was first interaction between me and the patient. On exam patient did have upper extremity dysmetria, [id number], left more than right. Also she did have lower extremity dysmetria,heel over mosqueda, left worse than right. We tried to ambulate patient, patient was not able to take any steps because she is off balance, and she feels like she has some pulling in her left side. Rest of the neuro exam was unremarkable. Ocular exam was unremarkable. After I evaluated the patient, emergent consultation with stroke team from [facility] initiated. Case discussed with stroke attending air conditioning unit assembler at [facility], Dr. Mcgraw. He examined patient using to the stroke. He did recommend giving patient TPA. He did discuss the risks and benefits of TPA to the patient. Patient agreed to receive TPA. Patient was given TPA according to weight. Repeat exam after 30-40 minutes of giving TPA, Patient's neuro exam improved, dysmetria improved in upper and lower extremity, patient was able to walk with some assistance. CTA of head and neck was done, was reviewed by Dr. Mcgraw. He did not see any acute abnormality CTA, no nausea percent occlusion. Case discussed with admitting hospitalist Dr. Everett, patient will be admitted to her service, to ICU. Diagnosis: Acute cerebellar CVA, status post TPA. Critical time spent on the patient is 55 minutes. Course/Dx - Course Course Of Treatment: Patient complains of sudden onset dizziness, weakness, flushed face starting at 10:30 PM tonight when patient started to get up out of a chair. Patient states she cannot maintain her balance to walk, feels like she is going to fall backwards. Symptoms worsen when patient sits up or tries to walk. Symptoms resolved when patient sits still. Denies NASH, vision change, speech deficits, AMS, unilateral weakness, fever, cough, sore throat, CP, SOB, N /V, change in urine, prior CVA hx. Patient complains of chronic left lower quadrant abdominal pain for which she has been evaluated. Abdol/pelvic surgical history is adhesion removal, appendectomy, partial hysterectomy. Physical exam:Neuro exam remarkable for mild left side inconsistency finger to nose and left heel over right leg, and inability to balance and walk. Neuro otherwise nml. Vital signs within normal limits. Labs unremarkable except for elevated TSH of 7.2. CT head negative for mass or hemorrhage. Patient symptoms did not improve on reevaluation. Discussed patient with Dr. Gallardo who after exam recommended Tele stroke activated and MRI head without contrast. Pt was evaluated by Dr Reese neurologis, and TPA was administered per his recommendation. CTA head and neck ordered. Will be transferred if large occlusion. If no large occlusion will be admitted [facility] [place]. Patient signed out to Dr. Gallardo - Diagnoses Provider Diagnoses: Stroke - Provider Notifications Instructed by Provider To: Admit As Inpatient Discharge - Sign-Out/Discharge Documenting (check all that apply): Patient Departure - Discharge Plan Condition: Improved Disposition: ADMITTED TO [facility] Referrals: Leslie Simental MD [Primary Care Provider] - - Billing Disposition and Condition Condition: IMPROVED Disposition: Admitted to [facility]
[2018-05-28] MEDS ORDERED: Ondansetron ODT TAB* 4 MG PO PRN (06:14)
[2018-05-28] MEDS ORDERED: Acetaminophen TAB* 325 MG PO PRN (06:14)
--- NOTE | 2018-05-28 06:21 | RAD ---
EXAM: CT Angiography Head With Intravenous Contrast. CLINICAL HISTORY: 62 years old, female; Signs and symptoms; Weakness; Additional info: Neuro deficits TECHNIQUE: Axial computed tomographic angiography images of the head with intravenous contrast using CT angiography protocol. 80 mL Visipaque 320 contrast administered IV. 3D and MIP reconstructed images were created and reviewed. COMPARISON: No relevant prior studies available. FINDINGS: Right internal carotid artery: No acute findings. Intracranial segment is patent with no significant stenosis. No aneurysm. Right anterior cerebral artery: Unremarkable. No occlusion or significant stenosis. No aneurysm. Right middle cerebral artery: Unremarkable. No occlusion or significant stenosis. No aneurysm. Right posterior cerebral artery: Persistent origin of right posterior cerebral artery, normal variant. No occlusion or significant stenosis. No aneurysm. Right vertebral artery: Unremarkable as visualized. Left internal carotid artery: No acute findings. Intracranial segment is patent with no significant stenosis. No aneurysm. Left anterior cerebral artery: Unremarkable. No occlusion or significant stenosis. No aneurysm. Left middle cerebral artery: Unremarkable. No occlusion or significant stenosis. No aneurysm. Left posterior cerebral artery: Unremarkable. No occlusion or significant stenosis. No aneurysm. Left vertebral artery: Unremarkable as visualized. Basilar artery: Unremarkable. No occlusion or significant stenosis. No aneurysm. The dural venous sinuses appear patent. IMPRESSION: #. No central intracranial large vessel stenosis or occlusion. #. Normal variation as noted. EXAM: CT Angiography Neck With Intravenous Contrast CLINICAL HISTORY: 62 years old, female; Signs and symptoms; Weakness; Additional info: Neuro deficits TECHNIQUE: Axial computed tomographic angiography images of the neck with intravenous contrast using CT angiography protocol. 80 mL Visipaque 320 contrast administered IV. 3D and MIP reconstructed images were created and reviewed. COMPARISON: BRAIN WO CT BRAIN WO 2018-05-28 00:28 FINDINGS: VASCULATURE: Right common carotid artery: Unremarkable. No significant stenosis. No dissection or occlusion. Right internal carotid artery: Unremarkable. Extracranial segment is patent with no significant stenosis. No dissection or occlusion. Right external carotid artery: Unremarkable. No occlusion. Right vertebral artery: Diminutive compared with the LEFT however both vertebral arteries contribute to the basilar artery. No significant stenosis. No dissection or occlusion. Left common carotid artery: Unremarkable. No significant stenosis. No dissection or occlusion. Left internal carotid artery: Unremarkable. Extracranial segment is patent with no significant stenosis. No dissection or occlusion. Left external carotid artery: Unremarkable. No occlusion. Left vertebral artery: Unremarkable. No significant stenosis. No dissection or occlusion. NECK: Bones/joints: Mild degenerative changes. No acute fracture. No dislocation. Soft tissues: Unremarkable as visualized. No mass. CAROTID STENOSIS REFERENCE USING NASCET CRITERIA: % ICA stenosis = (1 - narrowest ICA diameter/diameter of distal cervical ICA) x 100. Mild - <50% stenosis. Moderate - 50-69% stenosis. Severe - 70-94% stenosis. Near occlusion - 95-99% stenosis. Occluded - 100% stenosis. IMPRESSION: No evidence for carotid or vertebral artery stenosis, occlusion, or dissection. CPT II: CPT II Codes: 3100F
[2018-05-28] MEDS: NS 0.9% 1000 ML* 1,000 ML IV SCH ×2 (07:33→22:04)
[2018-05-28] MEDS: Cyclobenzaprine TAB* 10 MG PO PRN (07:45)
[2018-05-28] MEDS: Omeprazole CAP* 20 MG PO SCH (07:45)
[2018-05-28] MEDS: Losartan TAB* 25 MG PO SCH (07:45)
[2018-05-28] MEDS ORDERED: Methylphenidate TAB* 10 MG PO SCH (09:00)
[2018-05-28] MEDS: BuPROPion XL* 150 MG TAB.XL PO SCH (10:42)
[2018-05-28 10:57] LABS: Urine Appearance Clear; Urine Blood 1+ (Negative); Urine Color Yellow; Urine Ketones Negative (Negative); Urine Protein Negative (Negative); Urine Red Blood Cell Trace(0-2/hpf) (Absent); Urine Urobilinogen Negative (Negative); Urine White Blood Cell 1+(6-10/hpf) (Absent)
[2018-05-28] MEDS ORDERED: Diazepam TAB(*) 5 MG PO PRN ×2 (11:22→15:53)
--- NOTE | 2018-05-28 12:22 | HP ---
CC: Dr. Simental* HISTORY AND PHYSICAL: DATE OF ADMISSION: 05/28/18 PRIMARY CARE PROVIDER: Dr. Simental CHIEF COMPLAINT: I could not walk. HISTORY OF PRESENT ILLNESS: Ms. Martinez is a 62-year-old female who has a history of hypertension, fibromyalgia, chronic fatigue, IBS, and reported cognitive impairment, who presents to the emergency room with complaints of not being able to walk. The patient states that she had been in her usual state of health, sitting in chair at her computer, feeling fine up until about 10:30 p.m. At that point, she got up to try to start getting ready for bed and she states that she cannot walk. She states that when she tried to walk, she was leaning to the left. The patient denied any spinning sensation with this. She just felt off balance. She denied any headaches. She denied any changes in vision. She felt like she was weak on the left side. She denied any speech issues. The patient does state that she had an episode similar to this approximately 2 years ago, but is unaware whether or not she was diagnosed with the TIA or stroke or what she was diagnosed with. PAST MEDICAL HISTORY: 1. Hypertension. 2. Fibromyalgia. 3. Chronic fatigue. 4. IBS. 5. History of 2 tubal pregnancies. 6. Cognitive impairment. 7. Eight first trimester miscarriages. PAST SURGICAL HISTORY: 1. Surgery for ectopic x2. 2. Repair of fallopian tubes. 3. Lysis of adhesions. 4. Breast reduction. 5. Right breast surgery following the breast reduction for infection. 6. D and C. MEDICATIONS: 1. Ambien 10 mg p.o. q.h.s. p.r.n. insomnia. 2. Nortriptyline 10 mg p.o. q.h.s. 3. Flexeril 10 mg p.o. b.i.d. p.r.n. spasms. 4. Triamterene/hydrochlorothiazide 75/50 1 tab p.o. daily. 5. Losartan 25 mg p.o. daily. 6. Bupropion SR 450 mg p.o. p.o. daily. 7. Omeprazole 20 mg p.o. daily. 8. Ritalin 10 mg p.o. daily. ALLERGIES: LATEX. FAMILY HISTORY: Mom at the age of 71 of stomach cancer. Dad at age of 65 with non-Hodgkin's lymphoma. SOCIAL HISTORY: The patient does not smoke. She does not admit to drinking 1 alcoholic beverage daily. She states she was disabled from a fibromyalgia. She is . She has one son, who is her healthcare proxy. His name is Avtar Ramachandran. REVIEW OF SYSTEMS: A complete 11-system review of systems is obtained. Pertinent positives and negatives are as per HPI and in addition, the patient states over the last [id number]-tsy-[id number]-half she has had poor appetite. She states the time she just does not feel like eating. She states she is down approximately 20 pounds over that period of time. She also admits to diarrhea since this past Friday after having a contrasted CT scan of the abdomen and pelvis for abdominal pain has been on and off for the last 8 months. Her rest of the review of systems was negative. PHYSICAL EXAMINATION GENERAL: The patient is a well-developed, middle-aged female, seen lying in the bed, in no acute distress. VITAL SIGNS: Blood pressure 119/81, pulse 82, respirations 18, temp 98.6, O2 sat 95% on room air. HEENT: Pupils are equal and round. Extraocular muscles are intact. Oropharynx is clear. Oral mucosa is moist. The tongue protrudes midline. NECK: There is no submandibular, cervical, or supraclavicular adenopathy. Thyroid is not enlarged. No thyroid nodules are noted. PULMONARY: Lungs are clear to auscultation bilaterally. CARDIAC: Normal S1, S2. Regular rate and rhythm. I do not appreciate any murmurs. There is no lower extremity edema. ABDOMEN: Bowel sounds are present. Abdomen is soft, nondistended. She winces to palpation of the left lower quadrant. The abdomen is soft. I do not feel any masses. There is no rebound or guarding. MUSCULOSKELETAL: There is no cyanosis or clubbing of the digits. There is full active range of motion of all 4 extremities. The patient is able to turn herself over in the stretcher without any issues. SKIN: Warm and dry. There are no rashes. NEUROLOGIC: Cranial nerves II through XII appeared to be grossly intact. Sensation is intact to light touch throughout. Strength appears to be reduced in the left upper extremity though the patient does not give a full effort on exam. Lower extremity strength also appears to be within normal range though she has a hard time lifting her left leg off the bed she claims due to pain in her back. There is left greater than right dysmetria with [id number] testing. The patient closes her eyes during part of this testing. With her eyes closed that appears to be worse, with her eyes open appears to be better. PSYCH: The patient is alert. She is oriented to place and events of the evening. Affect appears somewhat odd. DIAGNOSTIC STUDIES/LAB DATA: Labs: WBC 7.2, hemoglobin 12.8, hematocrit 38, platelets 335. INR 0.93. Sodium 137, potassium 3.9, chloride 103, CO2 25, BUN 15, creatinine 1.03, glucose 106, calcium 9.3. Bilirubin 0.3, AST 17, ALT 15, alk phos 82. Troponin 0, CRP 15.86, albumin 4. TSH 7.21. CT brain reveals no acute intracranial abnormality. Mild chronic small vessel ischemic changes noted. CTA head and neck results pending on this. EKG reveals normal sinus rhythm with nonspecific intraventricular conduction delay with nonspecific ST-T wave changes throughout. ASSESSMENT AND PLAN: Ms. Martinez is a 62-year-old female who reports the history of hypertension, fibromyalgia, and cognitive impairment who presents to the emergency room with complaints of the inability to walk and is admitted for concern for cerebrovascular accident. 1. Possible cerebellar cerebrovascular accident. The patient underwent health stroke consultation with Dr. Mcgraw. It was recommended that she received tPA. This was started at 0252. The patient reportedly had improvement in her dysmetria per nursing and Dr. Gallardo in the emergency room. The patient continues to have dysmetria on the left. The patient will be on the post tPA protocol in terms of needle stick testing and initiating an aspirin. A Neurology consultation will be requested. Once she can be off bed rest, we will need to order PT and OT. 2. Hypertension. I am going to hold the patient's triamterene/ hydrochlorothiazide. We will continue her losartan. 3. Fibromyalgia. The patient will continue on her nortriptyline, Flexeril, Wellbutrin SR, and Ritalin. 4. Gastroesophageal reflux disease, continue omeprazole. 5. DVT prophylaxis. According to Adult Thrombosis Prophylaxis Risk Assessment Guide, the patient has a total risk factor score of 7 making her at the highest risk. At this point, SCDs will be utilized as DVT prophylaxis if she received tPA this morning. 6. Code status is full. TIME SPENT: Sixty-five minutes were spent admitting this patient. [id number]/[facility] #: [id number] NAINA
--- NOTE | 2018-05-28 18:40 | CONS ---
CONSULTATION REPORT: DATE OF CONSULT: 05/28/2018. PATIENT OF: Dr. Lezama, Dr. Simental and Dr. Everett.* HISTORY OF PRESENT ILLNESS: This is a 62-year-old right-handed woman who presented last evening at 10:30 with left-sided weakness, [place] [facility] did a consult and tPA was given. I do not have their note from yesterday but history is based on information from the patient and the ER notes. The patient initially had onset of dizziness, weakness, and first phase beginning at about 10:30 last night when she got out of the chair and had balance difficulties when left-sided weakness and dysmetria were noted, telestroke consult was contacted and tPA was given. The patient notes that she feels better today. The weakness and incoordination of the left arm is gone and she still has some left leg symptoms. She has had no prior strokes. She has a history of hypertension and fibromyalgia. She has had no headaches, speech problems, visual symptoms, numbness. She has had no prior stroke. PAST SURGICAL HISTORY: She is status post tonsillectomy, tubal ligation, 2 ectopic pregnancies, breast reduction, fibroid cyst surgery for her uterus. MEDICATIONS ON ADMISSION: Include: 1. Flexeril 10 mg twice a day p.r.n. 2. Cozaar 25 mg daily. 3. Methylphenidate 10 mg daily. 4. Nortriptyline 10 mg at bedtime. 5. Prilosec 20 mg daily. 6. Triamterene 50 mg daily. 7. Ambien 10 mg at bedtime as needed. 8. Wellbutrin 450 daily. ALLERGIES: She is allergic to LATEX. FAMILY HISTORY: Negative for stroke. SOCIAL HISTORY: She has no substance abuse. PHYSICAL EXAM: On exam, pulse 83, respirations 24, blood pressure 117/85, temperature 97.5. She is alert and oriented with normal speech and comprehension. Cranial nerves II through XII were normal with benign fundi. Motor exam revealed normal tone and strength. Negative pronator drift in the both arms. She had 5/5 left leg with slight left drift and some difficulty with [id number] with using the left leg. Sensation was intact to light touch. Reflexes were 1 and equal. Toes are downgoing. DIAGNOSTIC STUDIES/LAB DATA: CT scan I reviewed and showed no acute processes. To my eyes, it looked like there is some white matter disease and this is also read by the radiologist. She had a CTA, which showed no large vessel occlusion or other abnormalities. She had an EKG that showed some nonspecific intraventricular conduction delay. She has no history of atrial fibrillation. Normal CBC, INR. CMP had a creatinine of 1.03. C-reactive protein 15, TSH was 7.21. IMPRESSION AND PLAN: Suze's history, she had new onset of left-sided weakness without any other symptoms, this could be a small lacunar infarct. If this is truly a hemimotor deficit without sensory findings or other symptoms and her CT scan does show some small vessel ischemic change; this may relate to her hypertension. Workup will include MRI, today cardiac echo. This should be done with bubble study. She will need an MRI scan or a CT scan close to the 24 hours and then she should be started on aspirin. She will need fasting lipids. Also in summary who has been treated for hypertension, has had a stroke, I would discontinue the Ritalin even though this is a low dose and I will speak to her primary hospitalist today about that. Thank you for sharing her case. [id number]/[facility] #: [id number] NAINA
[2018-05-28] MEDS ORDERED: LORazepam INJ* 2 MG/ML 1 ML VIAL IV PUSH ONE (21:14)
[2018-05-28] MEDS ORDERED: LORazepam INJ* 2 MG/ML 1 ML VIAL ONE (21:16)
--- NOTE | 2018-05-28 21:58 | RAD ---
EXAM: MR Head Without Intravenous Contrast CLINICAL HISTORY: 62 years old, female; Signs and symptoms; Weakness, extremity; Left; Patient HX: C/O sudden onset left sided weakness w/ inability to ambulate @ 1030. Pt given tpa @0252; Additional info: Dizziness, gait instability TECHNIQUE: Magnetic resonance images of the head/brain without intravenous contrast in multiple planes. COMPARISON: BRAIN WO MRI BRAIN W/O 2016-09-19 12:40 FINDINGS: Brain: No evidence of restricted diffusion to suggest an acute infarct. Extensive periventricular, subcortical, deep and periventricular white matter flair signal abnormalities, unchanged from prior study likely representing extensive small vessel ischemic changes. No hemorrhage. Ventricles: Unremarkable. No ventriculomegaly. Bones/joints: Unremarkable. Sinuses: Unremarkable as visualized. No acute sinusitis. Mastoid air cells: Small fluid in right mastoid air cells and trace in the left mastoid air cells. Orbits: Unremarkable as visualized. IMPRESSION: No acute findings. No evidence of acute infarct. Extensive periventricular, subcortical, deep and periventricular white matter flair signal abnormalities, unchanged from prior study likely representing extensive small vessel ischemic changes. R0
[2018-05-28] MEDS: Nortriptyline CAP* 10 MG PO SCH (22:02)
[2018-05-29] MEDS: Zolpidem TAB* 10 MG PO PRN ×2 (00:13→21:54)
[2018-05-29] MEDS: Omeprazole CAP* 20 MG PO SCH (06:46)
--- NOTE | 2018-05-29 08:55 | RAD ---
HISTORY: CVA, f/u TPA COMPARISONS: May 28, 2018, MRI dated May 28, 2018 TECHNIQUE: Multiple contiguous axial CT scans were obtained of the head without intravenous contrast. FINDINGS: HEMORRHAGE/INFARCT: There is no hemorrhage or acute infarct. MASSES/SHIFT: There is no mass or shift. EXTRA-AXIAL SPACES: There are no extra-axial fluid collections. SULCI AND VENTRICLES: The sulci and ventricles are normal in size and position for the patient's stated age. CEREBRUM: There is hypoattenuation of the periventricular and subcortical white matter, corresponding to white matter changes noted on MRI. BRAINSTEM: There are no focal parenchymal abnormalities. CEREBELLUM: There are no focal parenchymal abnormalities. VESSELS: The vessels are grossly normal. PARANASAL SINUSES: The paranasal sinuses are clear. ORBITS: The orbits are unremarkable. BONES AND SOFT TISSUE: No bone or soft tissue abnormalities are noted. OTHER: None IMPRESSION: NO ACUTE INTRACRANIAL PATHOLOGY.
[2018-05-29] MEDS: BuPROPion XL* 150 MG TAB.XL PO SCH (09:42)
[2018-05-29] MEDS: Losartan TAB* 25 MG PO SCH (09:42)
[2018-05-29] MEDS: Aspirin 81 mg CHEW TAB* 81 MG TAB.CHEW PO SCH (09:42)
--- NOTE | 2018-05-29 12:26 | PN ---
Subjective Date of Service: 05/29/18 Interval History: Pt feels better. Her left sises weakness in "90% better" Objective Active Medications: Acetaminophen (Tylenol Tab*) 650 mg PO Q4H PRN PRN Reason: PAIN Aspirin (Aspirin 81 Mg Chew Tab*) 81 mg PO DAILY [facility] Last Admin: 05/29/18 09:42 Dose: 81 mg Bupropion HCl (Wellbutrin Xl *) 450 mg PO DAILY [facility] Last Admin: 05/29/18 09:42 Dose: 450 mg Cyclobenzaprine HCl (Flexeril Tab*) 10 mg PO BID PRN PRN Reason: SPASMS Last Admin: 05/28/18 07:45 Dose: 10 mg Diazepam (Valium Tab(*)) 10 mg PO Q8H PRN PRN Reason: ANXIETY Last Admin: 05/28/18 20:18 Dose: 10 mg Nortriptyline HCl (Pamelor Cap*) 10 mg PO BEDTIME [facility] Last Admin: 05/28/18 22:02 Dose: 10 mg Omeprazole (Prilosec Cap*) 20 mg PO DAILY@0600 [facility] Last Admin: 05/29/18 06:46 Dose: 20 mg Ondansetron HCl (Zofran Odt Tab*) 4 mg PO Q6H PRN PRN Reason: NAUSEA Zolpidem Tartrate (Ambien Tab*) 10 mg PO BEDTIME PRN PRN Reason: SLEEP Last Admin: 05/29/18 00:13 Dose: 10 mg Vital Signs - 8 hr 05/29/18 05/29/18 05/29/18 05:00 06:00 07:00 Temperature Pulse Rate 80 83 81 Respiratory 17 17 21 Rate Blood Pressure 105/73 108/76 116/77 (mmHg) O2 Sat by Pulse 95 94 95 Oximetry 05/29/18 05/29/18 05/29/18 07:01 07:48 08:00 Temperature 97.9 F Pulse Rate 79 77 Respiratory 18 16 Rate Blood Pressure 104/68 (mmHg) O2 Sat by Pulse 95 96 Oximetry 05/29/18 05/29/18 05/29/18 09:00 09:43 10:00 Temperature Pulse Rate 89 87 95 Respiratory 18 13 19 Rate Blood Pressure 121/89 115/92 (mmHg) O2 Sat by Pulse 99 99 100 Oximetry 05/29/18 05/29/18 11:00 12:00 Temperature 97.2 F Pulse Rate 88 90 Respiratory 19 18 Rate Blood Pressure 120/88 121/77 (mmHg) O2 Sat by Pulse 97 100 Oximetry Oxygen Devices in Use Now: None Appearance: 62 yo F in nAD, aAox3, poor historian Eyes: No Scleral Icterus, PERRLA Ears/Nose/Mouth/Throat: NL Teeth, Lips, Gums, Mucous Membranes Moist Neck: NL Appearance and Movements; NL JVP, Trachea Midline Respiratory: Symmetrical Chest Expansion and Respiratory Effort Cardiovascular: NL Sounds; No Murmurs; No JVD, RRR Abdominal: NL Sounds; No Tenderness; No Distention Lymphatic: No Cervical Adenopathy Extremities: No Edema, No Clubbing, Cyanosis Skin: No Rash or Ulcers, No Nodules or Sclerosis Neurological: Alert and Oriented x 3, - - minimal left UE an d LLE weakness c/w right side, CN2-12 grossly intact, speech clear, gait not evaluated, finger to nose not dysmetric b/l Result Diagrams: 05/28/18 00:07 05/28/18 00:07 Additional Lab and Data: Lab Results 05/28/18 05/28/18 Range/Units 00:07 00:07 WBC 7.2 (3.5-10.8) 10^3/ul RBC 4.13 (4.00-5.40) 10^6/ul Hgb 12.8 (12.0-16.0) g/dl Hct 38 (35-47) % MCV 91 (80-97) fL MCH 31 (27-31) pg MCHC 34 (31-36) g/dl RDW 15 (10.5-15) % Plt Count 335 (150-450) 10^3/ul MPV 8.3 (7.4-10.4) um3 Neut % (Auto) 56.7 (38-83) % Lymph % (Auto) 34.9 (25-47) % [place] % (Auto) 6.9 (0-7) % Eos % (Auto) 1.1 (0-6) % Baso % (Auto) 0.4 (0-2) % Absolute Neuts (auto) 4.1 (1.5-7.7) 10^3/ul Absolute Lymphs (auto) 2.5 (1.0-4.8) 10^3/ul Absolute Monos (auto) 0.5 (0-0.8) 10^3/ul Absolute Eos (auto) 0.1 (0-0.6) 10^3/ul Absolute Basos (auto) 0 (0-0.2) 10^3/ul Absolute Nucleated RBC 0 10^3/ul Nucleated RBC % 0 Sodium 137 (135-145) mmol/L Potassium 3.9 (3.5-5.0) mmol/L Chloride 103 (101-111) mmol/L Carbon Dioxide 25 (22-32) mmol/L Anion Gap 9 (2-11) mmol/L BUN 15 (6-24) mg/dL Creatinine 1.03 H (0.51-0.95) mg/dL Est GFR ( Amer) 65.5 (>60) Est GFR (Non-Af Amer) 54.1 (>60) BUN/Creatinine Ratio 14.6 (8-20) Glucose 106 H (70-100) mg/dL Calcium 9.3 (8.6-10.3) mg/dL Total Bilirubin 0.30 (0.2-1.0) mg/dL AST 17 (13-39) U/L ALT 15 (7-52) U/L Alkaline Phosphatase 82 (34-104) U/L Troponin I 0.00 (<0.04) ng/mL C-Reactive Protein 15.86 H (<8.01) mg/L Total Protein 7.1 (6.4-8.9) g/dL Albumin 4.0 (3.2-5.2) g/dL Globulin 3.1 (2-4) g/dL Albumin/Globulin Ratio 1.3 (1-3) TSH 7.21 H (0.34-5.60) mcIU/mL Microbiology and Other Data: Microbiology 05/28/18 07:30 Nasal Screen MRSA (PCR) - Final Nasal Mrsa Not Detected Assess/Plan/Problems-Billing Assessment: 62 yo f with h/o fibromyalgia and cognitive impairment (on ritalin) presented with left sided weakness - Patient Problems (1) CVA (cerebral vascular accident) Comment: Due to acute ischemic CVA MRI brain neg CTA head +neck unremarksble Echo neg for PFO apreciate DR. Lezama's consult. will d/c Ritalin as per neuro recommendations ASA and Plavix x 3 months. Transfer from ICU to telem. Plan to d/c in aM (2) HTN (hypertension) Comment: controlled off home meds (3) Depression Comment: controlled with Wellbutrin and nortriptyline (4) DVT prophylaxis Comment: mod risk, HSQ to be started tomorrow Status and Disposition: inpatient
[2018-05-29] MEDS: Clopidogrel TAB* 75 MG PO SCH (13:52)
[2018-05-29] MEDS: Heparin VIAL(*) 5000 UNITS/ML VIAL (FIVE THOUSAND) SUBCUT SCH ×2 (13:52→21:23)
--- NOTE | 2018-05-29 19:42 | PN ---
NEUROLOGIC FOLLOWUP NOTE: DATE OF VISIT: 05/29/18 HISTORY: A 62-year-old woman status post tPA and she feels much better. She says she has been in bed for a [id number]-[id number]-half with little generalized weakness, but has no other complaints. She has no headache, visual symptoms or focal weakness or numbness. She has not been out of bed yet. MEDICATIONS: Include: 1. Aspirin 81 mg daily at this point. 2. Ambien p.r.n. 3. Zofran p.r.n. 4. Prilosec 20 mg daily. 5. Pamelor 10 mg daily. 6. Cozaar 25 mg daily. 7. Flexeril 10 mg b.i.d. p.r.n. 8. Wellbutrin 425 daily. PHYSICAL EXAMINATION: On exam, temperature 97.9, pulse 89, respirations 18, blood pressure 104/68. She is alert and oriented with normal speech and comprehension. Cranial nerves II through XII are intact. Motor exam revealed normal tone and strength. [id number], I got her up out of bed. She was slightly lightheaded when she first got up, but she could take a few steps without any problems, she thought it was much better than she came in. Sensation intact. Chest is clear. Cardiovascular: Regular rate and rhythm. Abdomen: Soft with positive bowel sounds. DIAGNOSTIC STUDIES: I reviewed her MRI scan, which showed diffuse white matter disease. Her CT scan done for the followup of the tPA, but it is negative for bleeding, unchanged from prior CT scan. Her echo was normal and negative for clot and the bubble study was normal. Her LDL was 110. ASSESSMENT AND PLAN: She was on aspirin prior to the stroke. I would have her on Plavix in addition to the aspirin for 3 months and just go to Plavix by itself. I would continue her off of her stimulant. I would not have her be on blood pressure medicine until she proves the need for medication. I will be speaking to Dr. Rodriguez today about these issues. She can go out of the unit from a neurologic point of view, but will need physical therapy evaluation. Thank you for sharing her case. [id number]/[facility] #: [id number] NAINA
[2018-05-29] MEDS: Atorvastatin* 40 MG TAB PO SCH (21:22)
[2018-05-29] MEDS: Nortriptyline CAP* 10 MG PO SCH (21:54)
[2018-05-29] MEDS: Cyclobenzaprine TAB* 10 MG PO PRN (21:55)
[2018-05-30] MEDS: Heparin VIAL(*) 5000 UNITS/ML VIAL (FIVE THOUSAND) SUBCUT SCH (05:17)
[2018-05-30] MEDS ORDERED: CMC:Pantoprazole TAB (NF) 40 MG TAB PO SCH (06:00)
[2018-05-30] MEDS: BuPROPion XL* 150 MG TAB.XL PO SCH (08:23)
[2018-05-30] MEDS: Aspirin 81 mg CHEW TAB* 81 MG TAB.CHEW PO SCH (08:24)
[2018-05-30] MEDS: Clopidogrel TAB* 75 MG PO SCH (08:24)
[2018-05-30 15:10] VITALS: BP 129/87
[2018-05-30] MEDS: Atorvastatin* 40 MG TAB PO SCH (18:03)
--- NOTE | 2018-05-30 21:30 | DS ---
DISCHARGE SUMMARY: DATE OF ADMISSION: 05/28/18 DATE OF DISCHARGE: 05/30/18 ADMITTING PROVIDER: Eve Everett DO. ATTENDING PHYSICIAN ON THE DAY OF DISCHARGE: Boni Moore MD. PRIMARY CARE PHYSICIAN: Leslie Simental MD. CHIEF COMPLAINT: Acute left-sided weakness and inability to walk. PRINCIPAL DIAGNOSIS: Transient ischemic attack versus small lacunar stroke. HISTORY OF PRESENT ILLNESS AND HOSPITAL COURSE: Suze Martinez is a 62-year- old female with past medical history of hypertension, fibromyalgia, chronic fatigue, irritable bowel syndrome, cognitive impairment, numerous first trimester miscarriages, who presented with inability to walk. Please see H&P of Eve Everett for full details. Symptoms started 10:30 p.m. the night prior to admission. When she tried to walk she was leaning towards the left, thought often off balance. She denied any world spinning sensations or change in vision. No slurred speech. She had a similar episode 2 years prior. The patient [place] [facility] [place] and was evaluated by the [facility] with Dr. Mcgraw and she received tPA at 2:52 a.m. morning of admission. The left-sided dysmetria reportedly improved after tPA administration. Dr. Lezama of Neurology consulted the next morning. The patient had a CT of the head which demonstrated mild chronic small vessel ischemic disease, an MRI of the brain which demonstrated no acute findings or evidence for acute infarction, but extensive periventricular subcortical deep and periventricular white matter flares with no other abnormalities and change from prior study likely representing extensive small vessel ischemic changes. Head CTA demonstrated no large vessel stenosis or occlusion and no carotid or vertebral artery stenosis or occlusion or dissection. She had an echocardiogram , hospital day #2 which demonstrated preserved ejection fraction of 55% to 60%, no consistent Doppler evidence of clinically significant diastolic dysfunction. Negative bubble study. No significant valvular abnormalities. Dr. Lezama recommended cessation of her Ritalin and moderation of her antihypertensives given that her blood pressures on presentation were in the 100s to 120s and the patient often attested to lightheadedness. Her blood pressure on the day of discharge varied between 99/65 to 129/87. She had previously been on aspirin. Dr. Lezama recommended addition of Plavix for at least 3 months and then with plan to transition to just Plavix after that (stopping aspirin at that time). She is not being continued on her losartan, and her triamterene and hydrochlorothiazide was stopped with initiation of hydrochlorothiazide at a reduced dose. She did attest that with her water pill being stopped throughout the hospitalization, she did began to feel some fluid build up in her legs (she had trace edema on the day of discharge in her ankles). Other labs of significance were TSH of 7.21 and a free T4 of 0.84 (within normal limits). She should have repeat TSH testing within 2 to 4 weeks. She worked with physical therapy and was recommended home with home physical therapy which is being set up for her upon discharge. She should follow up with her primary care provider, Dr. Leslie Simental, within [address] Lezama within 4 weeks. Her LDL was 110, HDL was 58, A1c was 5.4. DISCHARGE MEDICATIONS: Include: 1. Wellbutrin 450 mg p.o. daily. 2. Flexeril 10 mg p.o. b.i.d. 3. Nortriptyline 10 mg p.o. q.h.s. 4. Omeprazole 20 mg p.o. daily. 5. Ambien 10 mg p.o. at bedtime. 6. Aspirin 81 mg daily (new). 7. Atorvastatin 40 mg p.o. daily (new). 8. Plavix 75 mg p.o. daily (new). 9. Hydrochlorothiazide 12.5 mg p.o. daily (new/reduced dose from previous triamterene and hydrochlorothiazide 37.5-25 mg, which has been stopped along with her losartan 25 mg which has been stopped). DISCHARGE DIET: Heart healthy. TIME SPENT ON DISCHARGE: Thirty five minutes. [id number]/[facility] #: [id number] [facility]
== END 2018-05-30 18:10 | disposition home health service (06) | DRG 62 ==
LOC: ED 23:13 → ICU 05-28 06:14 → MEDTELE 05-29 10:09
PROVIDERS: ADMIT Hospitalist; ATTEND Internal Medicine
DX: I63.9 Cerebral infarction, unspecified (principal); G81.94 Hemiplegia, unspecified affecting left nondominant side; I10 Essential (primary) hypertension; M79.7 Fibromyalgia; R53.83 Other fatigue; K58.9 Irritable bowel syndrome, unspecified; G31.84 Mild cognitive impairment of uncertain or unknown etiology; R19.7 Diarrhea, unspecified; M81.0 Age-related osteoporosis without current pathological fracture; F41.0 Panic disorder [episodic paroxysmal anxiety]; R40.2362 Coma scale, best motor response, obeys commands, at arrival to emergency department; R40.2142 Coma scale, eyes open, spontaneous, at arrival to emergency department; R40.2252 Coma scale, best verbal response, oriented, at arrival to emergency department; E78.5 Hyperlipidemia, unspecified; F32.9 Major depressive disorder, single episode, unspecified; Z79.82 Long term (current) use of aspirin; Z79.02 Long term (current) use of antithrombotics/antiplatelets; Z91.040 Latex allergy status; Z80.0 Family history of malignant neoplasm of digestive organs; Z80.7 Family history of other malignant neoplasms of lymphoid, hematopoietic and related tissues; Z90.710 Acquired absence of both cervix and uterus; Z72.89 Other problems related to lifestyle; Z98.51 Tubal ligation status; R29.702 NIHSS score 2
CPT/HCPCS: 36415; 70450; 70496; 70498; 70551; 74177; 80053; 80061; 81003; 81015; 82565; 83036; 84439; 84443; 84484; 84520; 85025; 85610; 86140; 87086; 87641; 93005; 93306; 99285; A9270-GY; G8978-GP-CI; G8979-GP-CI; G8980-GP-CI; G8987-GO-CJ; G8988-GO-CI; J1644; J2060; J2997; Q9967

== ENCOUNTER 2019-02-28 16:12 | Emergency (ER) | payer MEDICARE, MEDICAID ==
--- OUTSIDE RECORDS SUMMARY | 2019-02-28 16:33 | XMS REPORT | Continuity of Care Document ---
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 Diastolic 80 mmHg Heart Rate 80 /min Body Temperature 98.5 F Height 62.5 inches 5'2.50" Weight 171.00 lb BMI (Body Mass Index) 30.8 kg/m2 11/17/2007 1:57pm BP Systolic 130 mmHg BP Diastolic 80 mmHg Heart Rate 84 /min Body Temperature 99.3 F Height 62.5 inches 5'2.50" Weight 171.00 lb BMI (Body Mass Index) 30.8 kg/m2 Results Test Date Facility Test Result H/L Range Note Electrolytes Profile 12/01/2018 Josr Hawkins([facility]) Sodium 140 mEq/L 134 -149 Potassium 4.2 mEq/L 3.6-5.5 Chloride 103 mEq/L 94-112 Carbon Dioxide 25 mEq/L 21-32 Anion Gap 16.2 7.0-34.0 CBC Electronic [facility] 11/26/2018 Josr Shruthi(a) WBC 7.3 x10^3/UL 4.0- 10.0 RBC 4.34 x10^6/UL 3.93-6.00 HGB 13.4 g/dL 12.0-17.0 HCT 40 % 35-50 MCV 92.4 fL 80.0-95.0 MCH 30.9 pg 25.6-32.2 MCHC 33.4 g/dL 32.2-36.0 RDW-CV 14.3 % 11.6-14.4 PLT 341 x10^3/UL 163-400 MPV 9.9 fL 9.4-12.4 Mellisa# 4.87 x10^3/UL 1.56-6.13 Lymph# 1.80 x10^3/UL 1.18-3.74 Bay# 0.51 x10^3/UL 0.24-0.82 Eos # 0.1 x10^3/UL 0.0-0.5 Baso # 0.04 x10^3/UL 0.01-0.08 Mellisa% 66.6 % 34.0-70.0 Lymph % 24.6 % 20.0-52.0 Bay% 7.0 % 5.0-12.0 Eos% 1.2 % 0.7-7.0 Baso% 0.5 % 0.1-1.2 Comprehensive Metabolic 11/26/2018 [facility]) Sodium 132 mEq/L Low 134-149 Prof Potassium 6.1 mEq/L High 3.6-5.5 1 Chloride 92 mEq/L Low 94-112 Carbon Dioxide 20 mEq/L Low 21-32 Glucose 97 mg/dL 70-105 BUN 19 mg/dL 6-26 Creatinine 0.9 mg/dL 0.6-1.4 BUN/Creat Ratio 21.1 CALC 8.0-36.0 Calcium 6.0 mg/dL Low 8.6-10.2 2 Total Protein 7.2 g/dL 6.4-8.3 Albumin 4.3 g/dL 3.8-5.5 Globulin 2.9 g/dL 2.0-4.8 A/G Ratio 1.5 CALC 0.6-2.3 Alk. Phosphatase 83 U/L 30-110 Alt (SGPT) 16 U/L 7-35 Ast (Sgot) 19 U/L 5-34 Total Bilirubin 0.5 mg/dL 0.2-1.3 GFR Non- >60 ml/min/1.73m^ >=60 GFR >60 ml/min/1.73m^ >=60 Laboratory test 09/10/2018 [facility](a) TSH 2.32 mIU/L 0.50-6.00 finding Laboratory test 07/07/2018 [employer] SEE ATTACHED finding [address] [place] [address] [phone] Laboratory test 07/07/2018 [facility] Cytology SEE RESULT 3 finding Thinprep BELOW w[facility] CBC Auto Diff 05/28/2018 [facility] White Blood 7.2 10^3/uL N 3.5-10.8 Count Red Blood Count 4.13 10^6/uL N 4.00-5.40 Hemoglobin 12.8 g/dL N 12.0-16.0 Hematocrit 38 % N 35-47 Mean Corpuscular Volume 91 fL N 80-97 Mean Corpuscular Hemoglobin 31 pg N 27-31 Mean Corpuscular HGB Conc 34 g/dL N 31-36 Red Cell Distribution Width 15 % N 10.5-15 Platelet Count 335 10^3/uL N 150-450 Mean Platelet Volume 8.3 um3 N 7.4-10.4 Abs Neutrophils 4.1 10^3/uL N 1.5-7.7 Abs Lymphocytes 2.5 10^3/uL N 1.0-4.8 Abs Monocytes 0.5 10^3/uL N 0-0.8 Abs Eosinophils 0.1 10^3/uL N 0-0.6 Abs Basophils 0 10^3/uL N 0-0.2 Abs Nucleated RBC 0 10^3/uL Granulocyte % 56.7 % N 38-83 Lymphocyte % 34.9 % N 25-47 Monocyte % 6.9 % N 0-7 Eosinophil % 1.1 % N 0-6 Basophil % 0.4 % N 0-2 Nucleated Red Blood Cells % 0 Comp Metabolic Panel 05/28/2018 [facility] Sodium 137 mmol/L N 135-145 Potassium 3.9 mmol/L N 3.5-5.0 Chloride 103 mmol/L N 101-111 Co2 Carbon Dioxide 25 mmol/L N 22-32 Anion Gap 9 mmol/L N 2-11 Glucose 106 mg/dL High 70-100 Blood Urea Nitrogen 15 mg/dL N 6-24 Creatinine 1.03 mg/dL High 0.51-0.95 BUN/Creatinine Ratio 14.6 N 8-20 Calcium 9.3 mg/dL N 8.6-10.3 Total Protein 7.1 g/dL N 6.4-8.9 Albumin 4.0 g/dL N 3.2-5.2 Globulin 3.1 g/dL N 2-4 Albumin/Globulin Ratio 1.3 N 1-3 Total Bilirubin 0.30 mg/dL N 0.2-1.0 Alkaline Phosphatase 82 U/L N 34-104 Alt 15 U/L N 7-52 Ast 17 U/L N 13-39 Egfr Non- 54.1 >60 Egfr 65.5 >60 4 Laboratory test finding 05/28/2018 [facility] C Reactive Protein 15.86 mg/L High <8.01 TSH (Thyroid Stim Horm) 7.21 mcIU/mL High 0.34-5.60 Troponin I 0.00 ng/mL <0.04 Inr/Protime 05/28/2018 [facility] Inr 0.93 N 0.77-1.02 Lipid Profile (Trig/Chol/HDL) 05/28/2018 [facility] Triglycerides 161 mg/dL 5 Cholesterol 201 mg/dL 6 HDL Cholesterol 58.4 mg/dL 7 LDL Cholesterol 110 mg/dL 8 Laboratory test finding 05/28/2018 [facility] Free T4 (Free 0.84 ng/dL N 0.61- 1.12 Thyroxine) Hemoglobin A1c (Glyco HGB) 5.4 % N 4.0-5.6 9 BUN/Creat/GFR 05/25/2018 [facility] Poc Blood Urea Nitrogen 20 mg/dL N 8-26 Poc Creatinine 0.9 mg/dL N 0.6-1.3 10 Poc BUN/Creatinine Ratio 22.2 High 8-20 Egfr Non- 63.2 >60 Egfr 76.5 >60 11 Lipid Profile 05/15/2018 Josr Hawkins(a) Cholesterol 207 mg/dL High 120-200 Triglycerides 250 mg/dL High 30-200 HDL Cholesterol 66 mg/dL 30-85 LDL (Calculated) 91 CALC 0-129 VLDL Cholesterol 50 mg/dL 0-50 HDL Risk Factor 3.1 CALC 0.0-4.4 Laboratory test 05/15/2018 Josr Hawkins([facility]) Magnesium, Serum 1.5 mEq/L 1.2-2.1 finding TSH 3.93 mIU/L 0.50-6.00 CBC Electronic Fma 05/15/2018 Josr Shruthi(a) WBC 7.0 x10^3/UL 4.0- 10.0 RBC 4.28 x10^6/UL 3.93-6.00 HGB 13.3 g/dL 12.0-17.0 HCT 38 % 35-50 MCV 89.7 fL 80.0-95.0 MCH 31.1 pg 25.6-32.2 MCHC 34.6 g/dL 32.2-36.0 RDW-CV 15.0 % High 11.6-14.4 PLT 343 x10^3/UL 163-400 MPV 10.3 fL 9.4-12.4 Mellisa# 4.57 x10^3/UL 1.56-6.13 Lymph# 1.90 x10^3/UL 1.18-3.74 Bay# 0.43 x10^3/UL 0.24-0.82 Eos # 0.1 x10^3/UL 0.0-0.5 Baso # 0.04 x10^3/UL 0.01-0.08 Mellisa% 64.9 % 34.0-70.0 Lymph % 27.0 % 20.0-52.0 Bay% 6.1 % 5.0-12.0 Eos% 1.3 % 0.7-7.0 Baso% 0.6 % 0.1-1.2 Laboratory test 05/15/2018 Josr Hawkins([facility]ma) Amylase, Serum 77 U/L 20- 105 finding Laboratory test 05/15/2018 [facility] Lipase 38 U/L 14-72 12 finding [address] [place] [address] (607)- - Laboratory test 05/15/2018 Josr Hawkins([facility]) BUN 23 mg/dL 6-26 finding Creatinine 1.1 mg/dL 0.6-1.4 Laboratory test finding 02/05/2017 [facility] Troponin I 0.01 ng/mL N <0.04 13 CBC Auto Diff 02/05/2017 [facility] White Blood Count 8.3 10^3/uL N 3.5-10.8 Red Blood Count 4.49 10^6/uL N 4.0-5.4 Hemoglobin 13.5 g/dL N 12.0-16.0 Hematocrit 41 % N 35-47 Mean Corpuscular Volume 91 fL N 80-97 Mean Corpuscular Hemoglobin 30 pg N 27-31 Mean Corpuscular HGB Conc 33 g/dL N 31-36 Red Cell Distribution Width 15 % N 10.5-15 Platelet Count 307 10^3/uL N 150-450 Mean Platelet Volume 9 um3 N 7.4-10.4 Abs Neutrophils 5.1 10^3/uL N 1.5-7.7 Abs Lymphocytes 2.5 10^3/uL N 1.0-4.8 Abs Monocytes 0.4 10^3/uL N 0-0.8 Abs Eosinophils 0.1 10^3/uL N 0-0.6 Abs Basophils 0.1 10^3/uL N 0-0.2 Abs Nucleated RBC 0.01 10^3/uL N Granulocyte % 62.0 % N 38-83 Lymphocyte % 30.6 % N 25-47 Monocyte % 5.3 % N 1-9 Eosinophil % 1.1 % N 0-6 Basophil % 1.0 % N 0-2 Nucleated Red Blood Cells % 0.1 N Laboratory test finding 02/05/2017 [facility] Lactic Acid 1.6 mmol/L N 0.5-2.0 14 Troponin I 0.00 ng/mL N <0.04 15 Comp Metabolic Panel 02/05/2017 [facility] Sodium 137 mmol/L N 133-145 Potassium 3.7 mmol/L N 3.5-5.0 Chloride 102 mmol/L N 101-111 Co2 Carbon Dioxide 26 mmol/L N 22-32 Anion Gap 9 mmol/L N 2-11 Glucose 90 mg/dL N 70-100 Blood Urea Nitrogen 17 mg/dL N 6-24 Creatinine 1.13 mg/dL High 0.51-0.95 BUN/Creatinine Ratio 15.0 N 8-20 Calcium 9.7 mg/dL N 8.6-10.3 Total Protein 7.8 g/dL N 6.4-8.9 Albumin 4.1 g/dL N 3.2-5.2 Globulin 3.7 g/dL N 2-4 Albumin/Globulin Ratio 1.1 N 1-3 Total Bilirubin 0.30 mg/dL N 0.2-1.0 Alkaline Phosphatase 88 U/L N 34-104 Alt 12 U/L N 7-52 Ast 16 U/L N 13-39 Egfr Non- 48.8 N >60 Egfr 62.7 N >60 16 Laboratory test finding 02/05/2017 [facility] Magnesium 1.7 mg/dL Low 1.9-2.7 CBC Auto Diff 10/25/2016 [facility] White Blood Count 6.5 10^3/uL N 3.5-10.8 Red Blood Count 4.35 10^6/uL N 4.0-5.4 Hemoglobin 13.2 g/dL N 12.0-16.0 Hematocrit 40 % N 35-47 Mean Corpuscular Volume 91 fL N 80-97 Mean Corpuscular Hemoglobin 30 pg N 27-31 Mean Corpuscular HGB Conc 34 g/dL N 31-36 Red Cell Distribution Width 15 % N 10.5-15 Platelet Count 282 10^3/uL N 150-450 Mean Platelet Volume 10 um3 N 7.4-10.4 Abs Neutrophils 3.5 10^3/uL N 1.5-7.7 Abs Lymphocytes 2.4 10^3/uL N 1.0-4.8 Abs Monocytes 0.4 10^3/uL N 0-0.8 Abs Eosinophils 0.1 10^3/uL N 0-0.6 Abs Basophils 0.1 10^3/uL N 0-0.2 Abs Nucleated RBC 0 10^3/uL N Granulocyte % 53.5 % N 38-83 Lymphocyte % 37.5 % N 25-47 Monocyte % 6.3 % N 1-9 Eosinophil % 1.8 % N 0-6 Basophil % 0.9 % N 0-2 Nucleated Red Blood Cells % 0.1 N Comp Metabolic Panel 10/25/2016 [facility] Sodium 135 mmol/L N 133-145 Potassium 4.0 mmol/L N 3.5-5.0 Chloride 102 mmol/L N 101-111 Co2 Carbon Dioxide 25 mmol/L N 22-32 Anion Gap 8 mmol/L N 2-11 Glucose 91 mg/dL N 70-100 Blood Urea Nitrogen 15 mg/dL N 6-24 Creatinine 0.98 mg/dL High 0.51-0.95 BUN/Creatinine Ratio 15.3 N 8-20 Calcium 9.4 mg/dL N 8.6-10.3 Total Protein 6.9 g/dL N 6.4-8.9 Albumin 3.9 g/dL N 3.2-5.2 Globulin 3.0 g/dL N 2-4 Albumin/Globulin Ratio 1.3 N 1-3 Total Bilirubin 0.40 mg/dL N 0.2-1.0 Alkaline Phosphatase 80 U/L N 34-104 Alt 9 U/L N 7-52 Ast 13 U/L N 13-39 Egfr Non- 57.5 N >60 Egfr 74.0 N >60 17 Laboratory test finding 10/25/2016 [facility] C Reactive Protein 12.87 mg/L High < 5.00 18 TSH (Thyroid Stim Horm) 3.42 mcIU/mL N 0.34-5.60 Free T4 (Free Thyroxine) 0.99 ng/dL N 0.61-1.12 Folic Acid (Folate) > 20.00 ng/mL N >3.99 Vitamin B12 293 pg/mL N 180-914 19 Angiotensin Converting Enzyme 46 U/L N 8 - 53 20 Lyme Disease Serology Negative N Negative 21 Connective Tissue Panel 10/25/2016 [facility] Anti-Nuclear Antibody 4.0 U High 22 Cyclic Citrullinated Peptide <15.6 U N 23 [place] Igg AB Reflex 10/25/2016 [facility] SS-A/Ro Antibody <0.2 U N 24 SS-B/La Antibody <0.2 U N 25 Sm (Cabrera) IgG Antibody <0.2 U N 26 U1-nRNP Antibody <0.2 U N 27 Scl-70 (Scleroderma) Antibody <0.2 U N 28 Lavern-1 Antibody <0.2 U N 29 Laboratory test finding 10/25/2016 [facility] Centromere Auto Abs <0.2 U N 30 Ribosomal Antibody <0.2 U N 31 Methylmalonic Acid Mma 0.25 nmol/mL N <=0.40 32 Anti Double Stranded Dna Ab < 12.3 IU/mL N 33 Interpretation See Comment N 34 Laboratory test 06/10/2016 Jos[facility] Shruthi([facility]) Vitamin D25 21 Low 30-100 finding Comprehensive 03/05/2016 [facility]) Sodium 137 mEq/L 134-149 Metabolic Prof Potassium 3.7 mEq/L 3.6-5.5 Chloride 100 mEq/L [...] >=60 GFR >60 ml/min/1.73m^ >=60 Laboratory test 03/05/2016 Josr Hawkins(a) Free T4 1.26 ng/dL 0.75- 1.54 finding TSH 3.41 mIU/L 0.50-6.00 CBC Electronic ([facility]) 03/05/2016 [facility] WBC 5.8 3.6-9.6 (607)- - RBC 4.19 3.90-5.70 Hemoglobin (Fma/CMC/CTX) 12.8 g/dL 12.1 - 17.2 Hematocrit (Fma/CMC/CTX) 39.2 % 36.1 - 50.3 Platelets 333 10^3/ul 150-400 Lymph% 31.1 % 17.0-48.0 Mixed% 4.5 Neutrophils % 64.4 Mean Corpuscular Vol 94 82.2-97.4 Mean Corpuscular Hemoglobin 30.7 27.6-33.3 Mean Corpuscular Hemo Concen 32.7 32.0-36.0 RDW 14.4 High 11.6-13.7 Mean Platelet Volume 7.8 5.5-11.0 Laboratory test 08/23/2015 [facility] C-Reactive 13.2 mg/L High 0.0-4.9 35 finding [address] [facility] Protein, [place] [address] (607)- - Laboratory test 08/23/2015 Josr Hawkins([facility]) Vitamin B-12 403 pg/mL 230-1050 finding Vitamin D25 23 Low 30-100 36 Serum Iron 140 g/dL 60-150 Ferritin 18 ng/mL 15-200 Comprehensive Metabolic 08/23/2015 Josr Hawkins(a) Sodium 138 mEq/L 134-149 Prof Potassium 4.4 mEq/L 3.6-5.5 Chloride 100 mEq/L [...] >=60 GFR >60 ml/min/1.73m^ >=60 CBC Electronic ([facility]) 08/23/2015 [facility] WBC 6.6 3.6-9.6 (607)- - RBC 4.35 3.90-5.70 Hemoglobin (Fma/CMC/CTX) 13.4 g/dL 12.1 - 17.2 Hematocrit (Fma/CMC/CTX) 38.9 % 36.1 - 50.3 Platelets 320 10^3/ul 150-400 Lymph% 31.1 % 17.0-48.0 Mixed% 4.4 Neutrophils % 64.5 Mean Corpuscular Vol 90 82.2-97.4 Mean Corpuscular Hemoglobin 30.8 27.6-33.3 Mean Corpuscular Hemo Concen 34.4 32.0-36.0 RDW 15.3 High 11.6-13.7 Mean Platelet Volume 7.3 5.5-11.0 Comprehensive Metabolic 04/09/2014 [facility]) Sodium 140 mEq/L 134-149 Prof Potassium 3.8 mEq/L 3.6-5.5 Chloride 112 mEq/L [...] Bilirubin 0.4 mg/dL 0.2-1.3 Lipid Profile 04/09/2014 [facility] Shruthi([facility]) Cholesterol 218 mg/dL High 120-200 Triglycerides 143 mg/dL 30-200 HDL Cholesterol 68 mg/dL 30-85 LDL (Calculated) 121 CALC 0-129 VLDL Cholesterol 29 mg/dL 0-50 HDL Risk Factor 3.2 CALC 0.0-4.4 Laboratory test finding 04/09/2014 [facility] Shruthi([facility]) TSH 3.44 mIU/L 0.50-6.00 Amylase, Serum 58 U/L 20-105 CBC Electronic ([facility]) 04/09/2014 [facility] WBC 5.0 3.6-9.6 (607)- - RBC 3.87 Low 3.90-5.70 Hemoglobin (Fma/CMC/CTX) 11.9 g/dL Low 12.1 - 17.2 Hematocrit (Fma/CMC/CTX) 36.0 % Low 36.1 - 50.3 Platelets 294 10^3/ul 150-400 Lymph% 44.5 % 17.0-48.0 Mixed% 5.2 Neutrophils % 50.3 Mean Corpuscular Vol 93 82.2-97.4 Mean Corpuscular Hemoglobin 30.6 27.6-33.3 Mean Corpuscular Hemo Concen 32.9 32.0-36.0 RDW 14.8 High 11.6-13.7 Mean Platelet Volume 8.0 5.5-11.0 Laboratory test 04/09/2014 [facility] C-Reactive 18.0 mg/L High 0.0-5.0 37 finding 28 [facility] Protein [place], [place] [id number] [phone] Lipase 31 U/L 1-64 Laboratory test 01/04/2014 [facility] Thin Prep W/HPV SEE NOTE 38 finding [address] [place] [address] [phone] Ua - Micro ([facility]) 07/27/2013 [facility] Appearance CLEAR (607)- - Color YELLOW Glucose NEG Bilirubin NEG Ketones NEG SP Grav <=1.005 Blood SMALL # PH 6.5 Protein NEG Urobil 0.2 Nitrite NEG Leukocytes ([facility]ma/[facility]) SMALL # Hyaline - /Lpf Granular - /Lpf WBC ([facility]) 3-6 # RBC 3-4 # Mucus - /Lpf Epith OCC /Lpf # Bacteria TRACE /Hpf # Amorphous - /Lpf Crystals, Fluid (Fma/CMC/CTX) - Z#Comments - Laboratory test 11/27/2009 [facility] C-Reactive 1.6 mg/dL High 0.0-0.5 finding 28 [place], [place] [id number] [phone] CBC (a) 11/27/2009 [facility] WBC 4.0 3.6-9.6 (607)- - RBC 4.31 3.90-5.70 Hemoglobin (Fma/CMC/CTX) 12.7 g/dL 12.1 - 17.2 Hematocrit (Fma/CMC/CTX) 40.0 % 36.1 - 50.3 Mean Corpuscular Vol 92.8 82.2-97.4 Mean Corpuscular Hemaglobin 29.5 27.6-33.3 Mean Corpuscular Hemo Concen 31.8 Low 33.0-36.0 Platelets 259 10^3/ul 150-400 Lymph% 39.1 20.5-51.1 Mixed% 7.2 Neutrophils % 53.7 RDW 14.5 High 11.6-13.7 Mean Platelet Volume 12.6 High 7.4-10.4 Laboratory test finding 11/27/2009 [facility] Shruthi([facility]) B12 359 pg/mL 230 -1050 Laboratory test finding 11/27/2009 [facility] Shruth[facility]) TSH 3.37 mIU/L 0.50-6.00 Free T4 0.78 ng/dL 0.75-1.54 Comprehensive Metabolic 11/27/2009 [facility] Shruthi([facility]) Albumin 4.6 g/dL 3.8-5.5 Prof Alk. Phos. 84 U/L 30-110 Alt (SGPT) [...] Calc 0.6-2.2 BUN/Creat Ratio 22.8 Calc 8.0-36.0 Influenza A&B 10/18/2009 [facility] Influenza A NEGATIVE (607)- - Influenza B NEGATIVE Laboratory test 09/12/2009 [facility] Rheumatoid Arth 7.4 IU/mL 0.0-13.9 [address] [place] [address] [phone] Laboratory test 09/12/2009 [facility]) Creatine Kinase 44 U/L 26 -140 finding Lyme Igg/Igm 09/12/2009 [facility] Lyme 0.19 INDEX Negative 40 (CX) 28 [facility] Disease,Igg/[place] [address] [phone] CBC (Fma) 08/23/2009 [facility] WBC 6.0 3.6-9.6 (607)- - RBC 4.14 3.90-5.70 Hemoglobin (Fma/CMC/CTX) 12.2 g/dL 12.1 - 17.2 Hematocrit (Fma/CMC/CTX) 38.2 % 36.1 - 50.3 Mean Corpuscular Vol 92.3 82.2-97.4 Mean Corpuscular Hemaglobin 29.5 27.6-33.3 Mean Corpuscular Hemo Concen 31.9 Low 33.0-36.0 Platelets 327 10^3/ul 150-400 Lymph% 24.7 20.5-51.1 Mixed% 8.0 Neutrophils % 67.3 RDW 14.5 High 11.6-13.7 Mean Platelet Volume 11.5 High 7.4-10.4 Laboratory 08/23/2009 [facility] Antinuclear POSITIVE Abnormal Negative 41 test finding 28 [facility] AB (Elza) [place] [address] [phone] Vitamin D, 25 Oh 31.3 ng/mL Low 32.0-100.0 42 Comprehensive Metabolic 08/23/2009 [facility]uthi([facility]) Albumin 4.5 g/dL 3.8-5.5 Prof Alk. Phos. [...] BUN/Creat Ratio 18.2 Calc 8.0-36.0 Laboratory test 08/23/2009 [facility](a) Magnesium 1.7 mEq/L 1.2- 2.1 finding Antibody Titer 08/23/2009 [facility] Titer, Elza TITER=1:32 Abnormal 43 28 [facility] [address] [place] [address] [phone] Vitamin D, 25 07/19/2009 [facility] 25-Hydroxy <4.0 ng/mL () Hydroxy Vitamin D2 25-Hydroxy Vitamin D3 13 ng/mL () 25-Hydroxy Vitamin D Total 13 ng/mL Abnormal () 44 CBC (a) 05/11/2009 [facility] WBC 5.4 3.6-9.6 (607)- - RBC 4.36 3.90-5.70 Hemoglobin (Fma/CMC/CTX) 13.0 g/dL 12.1 - 17.2 Hematocrit (Fma/CMC/CTX) 40.0 % 36.1 - 50.3 Mean Corpuscular Vol 91.7 82.2-97.4 Mean Corpuscular Hemaglobin 29.8 27.6-33.3 Mean Corpuscular Hemo Concen 32.5 Low 33.0-36.0 Platelets 295 10^3/ul 150-400 Lymph% 37.8 20.5-51.1 Mixed% 3.7 Neutrophils % 58.5 RDW 14.9 High 11.6-13.7 Mean Platelet Volume 11.5 High 7.4-10.4 Laboratory test 05/11/2009 [facility] Shruth[facility] Amylase 141 U/L High 20- 105 45 finding Comprehensive 05/11/2009 [facility](a) Albumin 4.6 g/dL 3.8-5.5 Metabolic Prof Alk. Phos. 105 U/L 30-110 Alt (SGPT) [...] Calc 8.0-36.0 Ua - Micro (a) 08/17/2008 Family [facility] Appearance CLOUDY (607)- - Color YELLOW Glucose NEG Bilirubin NEG Ketones NEG SP Grav 1.020 Blood TRACE # PH 5.5 Protein NEG Urobil 0.2 Nitrite NEG Leukocytes (Fma/[facility]) MODERATE Hyaline - /Lpf Granular - /Lpf WBC ([facility]) 8-10 RBC 3-5 Mucus - /Lpf Epith FEW /Lpf Bacteria 3+ /Hpf Amorphous SMALL AMT /Lpf Crystals, Fluid (Fma/CMC/CTX) - Z#Comments - Ua - Micro ([facility]) 07/22/2008 [facility] Medicine Appearance CLEAR (607)- - Color YELLOW Glucose NEG Bilirubin ICTO NEGATIVE Ketones TRACE SP Grav 1.025 Blood TRACE # PH 6.0 Protein SSA NEGATIVE Urobil 0.2 Nitrite NEG Leukocytes ([facility]ma/[facility]) NEG Lipid Profile 07/22/2008 [facility](a) Cholesterol 219 mg/dL High 120-200 HDL 72 mg/dL 30-85 Triglycerides 74 mg/dL 30-200 HDL Risk Factor 3.1 CALC Low 4.2-7.0 LDL (Calculated) 133 CALC High 0-129 VLDL (Calculated) 15 mg/dL 0-50 Comprehensive Metabolic 07/22/2008 [facility]) Albumin 4.2 g/dL 3.8-5.5 Prof AlkAlisa Phos. 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 A. Ectocervical/Endocervical Specimen Adequacy: Satisfactory of evaluation Transformation zone component identified Patient Information: HPV: High risk HPV RNA testing regardless of pap results. HPV 16/18 Genotype Reflex Actual Specimen Date: 07/07/18 LMP If Unknown: 1998 ?: N Post Menopausal?: Y Hysterectomy?: N Previous Abnormal Pap Smears?:N Signed by and Reported on: BARBRA Mota(ASCP) [id number] This Pap test was evaluated with the assistance of the [employer] Test Imaging System. Due to cytologic findings at the seasonal package handler microscope, comprehensive manual rescreening by a Box Office Agent may be required. The Pap Smear is a screening test designed to aid in the detection of premalignant and malignant conditions of the uterine cervix. It is not a diagnostic procedure and should not be used as the sole means of detecting cervical cancer. Both false- positive and false- negative reports do occur. Depending on your risk status, a Pap smear should be obtained and evaluated every 1-3 years. END OF REPORT DEPARTMENT OF PATHOLOGY, [address] [place] [address] Venkat Cr M.D. Director [facility] # [id number] 4 Because ethnic data is not always [...] 5 Kidney failure <15 (or dialysis) 5 Desirable: <150 Borderline High: 150-199 High: 200-499 Very High: >500 6 Desirable: <200 Borderline High: 200-239 High: >239 7 Low: <40 Desirable: 40-60 High: >60 8 Desirable: <100 Near Optimal: 100-129 Borderline High: 130-159 High: 160-189 Very High: >189 9 Therapeutic target for the treatment of diabetes mellitus patients is <7% HBA1C, and in selective patients <6.0%. Please refer to [place] [employer] diabetic care guidelines for further information. 10 Public Health Training Assistant: [id number] 11 Because ethnic data is not always readily [...] 15-29 5 Kidney failure <15 (or dialysis) 12 1 sst 13 99th percentile=0.04 ng/mL Troponin results at [facility] and [facility] are not interchangeable. 14 [facility] Severe Sepsis and Septic Shock Management Bundle Measure requires all lactic acids initially measuring >2.0 mmol/L be repeated. 15 99th percentile=0.04 ng/mL Troponin results at [facility] and [facility] are not interchangeable. 16 Because ethnic data is not always readily [...] 15-29 5 Kidney failure <15 (or dialysis) 17 Because ethnic data is not always readily [...] 15-29 5 Kidney failure <15 (or dialysis) 18 Acute inflammation: >10.00 19 Normal Range 180 to 914 Indeterminate Range 145 to 180 Deficient Range <145 20 Test Performed by: [place] [address] [place]: William Vo II, M.D., Ph.D. 21 Serologic response to B. burgdorferi infection is not detected, but cannot rule out early infection during which low or undetectable antibody levels to B. burgdorferi may be present. If clinically indicated, a new serum specimen should be submitted in 7-14 days. Test Performed by: [place] [address] [place]sterman: William Vo II, M.D., Ph.D. 22 Interpretation: Positive (3.0-5.9) REFERENCE VALUE <=1.0 (Negative) 23 REFERENCE VALUE <20.0 (Negative) Test Performed by: [place] [address] [place]: William Vo II, M.D., Ph.D. 24 REFERENCE VALUE <1.0 (Negative) 25 REFERENCE VALUE <1.0 (Negative) 26 REFERENCE VALUE <1.0 (Negative) 27 REFERENCE VALUE <1.0 (Negative) 28 REFERENCE VALUE <1.0 (Negative) 29 REFERENCE VALUE <1.0 (Negative) Test Performed by: [place] [address] [place]erman: William Vo II, M.D., Ph.D. 30 REFERENCE VALUE <1.0 (Negative) Test Performed by: [place] [address] [place]: William Vo II, M.D., Ph.D. 31 REFERENCE VALUE <1.0 (Negative) Test Performed by: [place] [address] [place]: William Vo II, M.D., Ph.D. 32 ADDITIONAL INFORMATION This test was developed and its performance characteristics determined by [facility] in a manner consistent with CLIA requirements. This test has not been cleared or approved by the U.S. Food and Drug Administration. Test Performed by: [place] [address] [place]: William Vo II, M.D., Ph.D. 33 Negative for dsDNA antibody by enzyme immunoassay. No further testing recommended. REFERENCE VALUE <30.0 (Negative) Test Performed by: [place] [address] [place]: William Vo II, M.D., Ph.D. 34 RESULT: Compatible with early connective tissue disease. Test Performed by: [place] [address] [place]: William Vo II, M.D., Ph.D. 35 1SST 36 result abelardo''d 37 FASTING; 1 SST; 1 YELLOW TOP 38 [facility] [employer] 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 [id number] Requisition #: [id number] CYTOLOGIC INTERPRETATION: SPECIMEN ADEQUACY SATISFACTORY FOR EVALUATION. THE PRESENCE OF TRANSFORMATION ZONE COMPONENT CANNOT BE DETERMINED DUE TO ATROPHIC CHANGES. GENERAL CATEGORIZATION NEGATIVE FOR INTRAEPITHELIAL LESIONS OR MALIGNANCY RECOMMENDATIONS See Related Reference Test Result below. Refer to the corresponding web sites for 2012 updated general recommendation guidelines of [place] preventive service task force for cervical cancer screening, and www.asccp.org//geopdsusr5257. COMMENTS Thin Prep Pap tests are examined [...] occur. 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 39 2 SST 40 < or=0.80 Negative 0.81 - 1.20 Equivocal >1.20 Positive 41 2SST 42 Recent studies consider the lower limit of 32.0 ng/mL to be a threshold for optimal health. Zak CABRERA. J Nutr. 2005 Nov;135(2):317-22. 43 HOMOGENOUS PATTERN 44 Interpretation: 10-24 (mild to moderate deficiency) -- REFERENCE VALUE -- 25-HYDROXY D TOTAL (D2+D3) Optimum levels in the normal population are 25-80 Test Performed by: [facility] Pathology [address] [place] [id number] [place]: Chau Peterson III, M.D. 45 RESULT ABELARDO'D Procedures Date Code Description Status 01/21/2019 16606 Pulse Oximetry Completed 02/12/2018 90055 Brief Emotional/Behav Assessment W/ Scoring Doc Per Completed Standard Inst 02/10/2017 143125596 Bone Mineral Density Test Completed 03/05/2016 51872 Electrocardiogram Complete Completed 04/08/2014 17416 Pulse Oximetry Completed 02/15/2010 30529 Jayla-Noninvasive physiologic studies of upper or lower Completed extremity 10/27/2008 [id number] Mammogram Completed Encounters Type Date Location Provider Dx Diagnosis Office Visit 01/21/2019 Main Office KAYE Webster J44.9 Chronic obstructive 7:00p pulmonary disease, unspecified R05 Cough Office Visit 01/14/2019 5:45p Main Office Joyce Nguyen J44.9 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9 Hereditary and idiopathic neuropathy, unspecified I63.9 Cerebral infarction, unspecified M79.7 Fibromyalgia Office Visit 07/11/2018 11:00a Main Office Charlette Niño R21 Rash and other Frank, DIRECT 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 nonspecific skin eruption Office Visit 07/07/2018 11:00a [facility] Candace 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 [place], exam (general) Afnp-C (routine) w/o abn findings Z12.31 Encntr screen mammogram for malignant neoplasm of breast Z12.11 Encounter for screening for malignant neoplasm of colon Z23 Encounter for immunization R94.6 Abnormal results of thyroid function studies Office Visit 06/03/2018 3:30p Main Office Leslie Rowan I63.9 Cerebral Marlena Simental infarction, unspecified M54.5 Low back pain K21.9 Gastro-esophageal reflux disease without esophagitis R10.814 Left lower quadrant abdominal tenderness I10 Essential (primary) hypertension Office Visit 05/15/2018 3:30p [facility] Leslie Rowan F43.23 Adjustment Marlena Simental disorder with mixed anxiety and depressed mood R10.814 Left lower quadrant abdominal tenderness K59.09 Other constipation R07.89 Other chest pain Office Visit 02/12/2018 11:20a [facility] Leslie Rowan F41.1 Generalized Marlena Simental anxiety disorder F90.0 Attn-defct hyperactivity disorder, 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 Office Visit 07/11/2017 11:20a [facility] Leslie Rowan R06.02 Shortness of Marlena Simental breath M17.12 Unilateral primary osteoarthritis, left knee G47.09 Other insomnia Z23 Encounter for immunization Office Visit 05/21/2017 1:40p Main Office Leslie Rowan G47.33 Obstructive sleep Marlena Simental apnea (adult) (pediatric) J44.9 Chronic obstructive pulmonary disease, unspecified R68.89 Other general symptoms and signs G31.84 Mild cognitive impairment, so stated Office Visit 04/14/2017 11:00a Main Office Leslie Rowan I10 Essential ( primary) Marlena Simental hypertension F41.1 Generalized anxiety disorder G31.84 Mild cognitive impairment, so stated M79.7 Fibromyalgia Office Visit 02/10/2017 12:40p Main Office Leslie Simental R07.89 Other chest pain M.D. K59.09 Other constipation Office Visit 12/17/2016 2:40p [facility] Leslie Rowan G31.84 Mild cognitive Marlena Simental impairment, so stated R53.82 Chronic fatigue, unspecified K59.09 Other constipation Office Visit 06/19/2016 1:40p Main Office Leslie Rowan E55.9 Vitamin D Marlena Simental deficiency, unspecified R53.82 Chronic fatigue, unspecified G31.84 Mild cognitive impairment, so stated Office Visit 06/10/2016 1:40p Main Office Leslie Rowan E55.9 Vitamin D Marlena Simental deficiency, unspecified R53.82 Chronic fatigue, unspecified Office Visit 03/05/2016 1:30p Main Office Candace Kendrick, R53.83 Other fatigue Afnp-C I10 Essential (primary) hypertension Office Visit 09/18/2015 1:00p Main Office Sahara Perera, CAR SALES ASSOCIATE M60.89 Other myositis, multiple sites F32.9 Major depressive disorder, single episode, unspecified F41.1 Generalized anxiety disorder I10 Essential (primary) hypertension G47.419 Narcolepsy without cataplexy Office Visit 08/23/2015 3:50p Main Office Dm Phoenix M.D. R53.83 Other fatigue Office Visit 05/20/2015 10:15a Main Office Sahara Perera, 729.1 Myalgia & Myositis CAR SALES ASSOCIATE Unspec 311 Depressive Disorder Not Elsewhere Spec Office Visit 12/15/2014 3:20p [facility] Leslie Rowan 729.1 Myezraia & Marlena Simental Myositis Unspec 311 Depressive Disorder Not Elsewhere Spec 300.00 Anxiety State Unspec 347.00 Narcolepsy W/O Cataplexy 401.9 Hypertension Unspec Office Visit 08/16/2014 2:30p Main Office Lexii Pastor, 729.1 Myalgia & Myositis Afnp-C Unspec 780.71 Chronic Fatigue Syndrome 401.9 Hypertension Unspec 311 Depressive Disorder Not Elsewhere Spec 300.00 Anxiety State Unspec 347.00 Narcolepsy W/O Cataplexy 724.2 Lumbago V04.81 Need For Prophylactic Vaccination & Inoculation/Influenza Office Visit 04/08/2014 1:00p Main Office Shraddha Briggs NP 724.2 Lumbago 780.71 Chronic Fatigue Syndrome 311 Depressive Disorder Not Elsewhere Spec 300.00 Anxiety State Unspec 401.9 Hypertension Unspec 347.00 Narcolepsy W/O Cataplexy 530.81 Esophageal Reflux 729.1 Myalgia & Myositis Unspec 780.52 Insomnia Unspecified Office Visit 01/04/2014 2:30p [facility] Candace V72.31 Routine Poultry Processor [facility], Examination Afnp-C 729.1 Myalgia & Myositis Unspec 780.71 Chronic Fatigue Syndrome V76.10 Screening For Malignant Neoplasm Breast V76.41 Screening Malignant Neoplasm Rectum Office Visit 07/27/2013 10:00a [facility] Andrade Calderon V70.0 Examination Marlena Lopez General Medical Routine AT Health Care Facility V77.91 Screening For Lipoid Disorders V76.10 Screening For Malignant Neoplasm Breast V76.51 Screening For Malignant Neoplasms Colon 729.1 Myalgia & Myositis Unspec 311 Depressive Disorder Not Elsewhere Spec 300.00 Anxiety State Unspec 307.49 Sleep Disorder Other 780.71 Chronic Fatigue Syndrome 401.9 Hypertension Unspec v06.5 Tetanus Diphtheria (DT) 599.72 Microscopic Hematuria Office Visit 07/26/2013 Main Office Shraddha v04.81 Need For Prophylactic 5:00p NELSY Briggs Vaccination & Inoculation/Influenza 724.2 Lumbago 719.45 Pain Joint Pelvic Region & Thigh Office Visit 03/11/2013 7:20p Main Office Andrade Lopez, 729.1 Myalgia & Myositis M.D. Unspec 347.00 Narcolepsy W/O Cataplexy 311 Depressive Disorder Not Elsewhere Spec 300.00 Anxiety State Unspec 307.49 Sleep Disorder Other 780.71 Chronic Fatigue Syndrome Office Visit 02/17/2013 11:30a [facility] Office Lexii Pastor, 729.1 Myalgia & Afnp-C Myositis Unspec 347.00 Narcolepsy W/O Cataplexy 311 Depressive Disorder Not Elsewhere Spec 300.00 Anxiety State Unspec 307.49 Sleep Disorder Other 780.79 Malaise And Fatigue Other Office Visit 04/12/2010 3:00p Main Office Andrade Lopez, 729.1 Myalgia & Myositis M.D. Unspec 724.2 Lumbago 347.00 Narcolepsy W/O Cataplexy 311 Depressive Disorder Not Elsewhere Spec 300.00 Anxiety State Unspec 307.49 Sleep Disorder Other Office Visit 02/28/2010 7:30p Main Office Andrade Lopez, 729.1 Myalgia & Myositis M.D. Unspec 724.2 Lumbago 347.00 Narcolepsy W/O Cataplexy 311 Depressive Disorder Not Elsewhere Spec 300.00 Anxiety State Unspec 307.49 Sleep Disorder Other Office Visit 02/06/2010 4:20p Main Office Leslie Rowan 443.9 Peripheral Marlena Simental Vascular Disease Unspec Office Visit 11/27/2009 1:30p [facility] Andrade Calderon 729.1 Myalgdimas & Marlena Lopez Myositis Unspec 724.2 Lumbago 347.00 Narcolepsy W/O Cataplexy 311 Depressive Disorder Not Elsewhere Spec 300.00 Anxiety State Unspec 780.79 Malaise And Fatigue Other 307.49 Sleep Disorder Other V04.81 Need For Prophylactic Vaccination & Inoculation/Influenza Office Visit 10/18/2009 2:00p [facility] Andrade Calderon 465.9 URI Upper Marlena Lopez Respiratory Infections Acute Unspec Sites 787.91 Diarrhea Office Visit 09/12/2009 3:30p Main Office Andrade Lopez 729.1 Myalgia & Myositis M.D. Unspec 724.2 Lumbago Office Visit 09/05/2009 4:30p [facility] Andrade Calderon 729.1 MyCaridad M.D. Myositis Unspec 796.9 Abnormal Findings Other Nonspec V04.81 Need For Prophylactic Vaccination & Inoculation/Influenza Office Visit 08/23/2009 1:20p [facility] Andrade Calderon 729.1 MyCaridad M.D. Myositis Unspec 269.2 Vitamin Deficiency Unspec 709.9 Skin & Subcutaneous Tissue Disorders Unspec Office Visit 05/11/2009 4:00p Main Office Andrade Calderon 789.07 Pain Abdominal Marlena Lopez Generalized 724.2 Lumbago Office Visit 02/13/2009 3:50p [facility] Andrade Calderon 347.00 Narcolepsy W/O Marlena Lopez Cataplexy 340 Multiple Sclerosis 729.1 Myalgia & Myositis Unspec 307.49 Sleep Disorder Other Office Visit 10/03/2008 4:00p Main Office Andrade Lopez 340 Multiple Sclerosis Marlena 729.1 Myalgia & Myositis Unspec 724.2 Lumbago Office Visit 08/17/2008 4:10p [facility] Office Andrade Calderon 340 Franklin Lopez M.D. Sclerosis 729.1 Myalgia & Myositis Unspec 599.70 Hematuria, Unspecified V04.81 Need For Prophylactic Vaccination & Inoculation/Influenza Office Visit 07/22/2008 9:00a [facility] Office Andrade Calderon V70.0 Examination Marlena Lopez General Medical Routine AT Health Care Facility V76.51 Screening For Malignant Neoplasms Colon V77.91 Screening For Lipoid Disorders V76.10 Screening For Malignant Neoplasm Breast V49.81 Postmenopausal Status Asymptomatic (Age-Related,Natural) 340 Multiple Sclerosis 729.1 Myalgia & Myositis Unspec 599.70 Hematuria, Unspecified Office Visit 05/23/2008 2:40p Main Office Andrade Lopez 729.1 Myalgia & Myositis M.D. Unspec 347.00 Narcolepsy W/O Cataplexy 780.79 Malaise And Fatigue Other 311 Depressive Disorder Not Elsewhere Spec Office Visit 02/02/2008 3:20p Main Office Andrade Calderon 347.00 Narcolepsy W/ O Marlena Lopez Cataplexy 307.49 Sleep Disorder Other Office Visit 01/21/2008 3:00p Main Office Andrade Lopez, 780.79 Malaise And M.D. Fatigue Other 347.00 Narcolepsy W/O Cataplexy Office Visit 01/12/2008 2:10p Main Office Andrade Lopez, 729.1 Myalgia & Myositis M.D. Unspec 780.79 Malaise And Fatigue Other 311 Depressive Disorder Not Elsewhere Spec 307.49 Sleep Disorder Other Office Visit 12/01/2007 2:10p Main Office Andrade Lopez, 729.1 Myalgia & Myositis M.D. Unspec Office Visit 11/17/2007 2:00p Main Office Andrade Lopez, 340 Multiple Sclerosis M.D. 729.1 Myalgia & Myositis Unspec 311 Depressive Disorder Not Elsewhere Spec 300.00 Anxiety State Unspec V04.81 Need For Prophylactic Vaccination & Inoculation/Influenza Plan of Treatment Future Appointment(s):03/26/2019 1:00 pm - Leslie Simental M.D. at [facility] Chyeyb8102/26/2019 - Leslie Simental M.D.J20.9 Acute bronchitis, unspecifiedAllComments:Medication Management Patient Understands medications she 's taking? Yes No Are there Barriers to Adherence? Yes No Has the patient been asked about herbal supplements and therapies, and OTC meds? Yes No
--- OUTSIDE RECORDS SUMMARY | 2019-02-28 16:33 | XMS REPORT | Continuity of Care Document ---
:1955 External Reference #:[id number] Author Name Leslie Simental M.D. Address [address] [facility] [place] [address] Care Team Providers Name Role Phone Leslie Simental Care Team Information Associate Marketing Manager Unavailable Leslie Simental Primary Care Physician Unavailable Payers Date Identification Numbers Payment Provider Subscriber Effective: 1998 Policy Number: [id number] [place] PayID: [id number] [address] [place] [address] Effective: 1998 Policy Number: [id number] [place] Expires: 2018 PayID: [id number] [address] [place] [address] Effective: 2015 Policy Number: [id number] Medicaid [place] Flora Osmaning PayID: [id number] [address] [facility] [place] [address] Advance Directives Description No Information Available Problems [...] Onset: 07/27/2013 Myalgia/myositis - multiple Sahara Perera, MANAGER ENGAGEMENT Onset: 09/18/2015 Vitamin D deficiency Leslie Simental M.D. 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 PGM - several [place] age 51 from [place] General Lived with her biological family and an adopted family at various different times. Father Lymphoma - Non Hodgkins Father 65 yo Mother Stomach Cancer at 71 yo First Son healthy? Douglass with and son. Number of Siblings Siblings:2 half brothers and one half sister. Hx unknown First Sister s/p whipple for pancreatic cancer. doing well. in Adopted family. 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 General On disability [...] Medications SIG Qnty Indications Ordering Date Provider Medrol use as directed 1units J20.9 Leslie Rowan 02/26/2019 4mg DENZEL Simental M.D. Bupropion Hydrochloride Take 1 Tablet By 90tabs F43.23 Sahara Perera, 02/24 ER (XL) Mouth Every Day MANAGER ENGAGEMENT 300mg Tablets ER 24HR Nebulizer Set Up And for lifetime R05 Leslie Rowan 01/21/2019 Tubing use. [address], [address] [place] [address] dx: j44.9 last seen 01/21/19 Ipratropium inhale 1 5-6 180ml R05 Leslie LAlisa 01/21/2019 [place]/Albuterol times a day as Marlena Simental Sulfate needed for 0.5-2.5(3)mg/3ML cough/shortness Solution of breath dx: j44.9 Ventolin HFA 2 puffs every 4 18units J20.9 Leslie L. 01/01/2019 108(90Base) hours as needed Marlena Simental mcg/Act Aerosol Losartan Potassium Take 1 Tablet By 90tabs Sahara Perera, 09/06/2018 25mg Mouth Every Day MANAGER ENGAGEMENT Tablets Triamterene/Hydrochloro Take 1 Capsule 90caps Sahara Perera, 09/06/2018 thiazide By Mouth Every MANAGER ENGAGEMENT 37.5-25mg Capsules Day Miralax 1 packet in 8 oz 36units K59.09 Charlette Renay 05/15/2018 3350NF Packet water every Frank, ZONING TECHNICIAN night Advair Diskus Inhale 1 puff By 60units J44.9 Leslie LAlisa 05/21/2017 Mouth Two Times Marlena Simental 250-50mcg/Dose [...] DR by mouth every Marlena Simental day Nortriptyline HCL 1 at night Unknown 10mg Capsules Vitamin B12 1 by mouth every Unknown Tablets day Atorvastatin Calcium 1 by mouth every 30tabs Leslie Rowan 40mg day Marlena Simental Tablets Clopidogrel Bisulfate 1 by mouth every 30tabs Leslie Rowan 75mg day Marlena Simental Tablets Bupropion Hydrochloride 1 by mouth every Unknown ER (XL) day with the 150mg Tablets ER 300mg 24HR History Medications Benzonatate 1-2 caps by mouth [...] 07/04/2016 - 75mg Capsules times a day [facility] 04/14/2017 Vitamin D take 1 capsule by 12caps E55.9 Leslie Rowan 06/10/2016 - (Ergocalciferol) mouth once weekly Marlena Simental 02/10/2017 [id number] for 12 weeks. Capsules Methylphenidate HCL ER 1 by mouth twice a 60caps G47.419 Marielle 2015 - (CD) day Ricoc, [facility] 06/03/2018 10mg Capsules ER Wellbutrin XL Take 1 Tablet By 90tabs F32.9 Sahara Perera, 09/18/2015 - 300mg Tablets Mouth Every Day [facility] 02/25/2019 ER 24HR Nasacort Allergy 24HR use two sprays in 1units Candace 09/18/2015 - each nostril twice [facility], 03/18/2016 55mcg/Act Aerosol a day Afnp-C Lidoderm 1 patch to knees 60units M60.89 Leslie Rowan 09/18/2015 - 5% Patches bilat for 12 hour, Marlena Simental 02/10/2017 off for 12h Methylphenidate HCL CD one tab by mouth 60caps G47.419 Sahara Perera, 09/18 - 10mg twice a day [facility] 02/07/2016 Capsules ER Wellbutrin XL 1 by mouth every 90tabs 311 Leslie Rowan 09/14/2015 - 150mg Tablets day Marlena Simental 09/18/2015 ER 24HR Zolpidem Tartrate 1 by mouth every 30tabs 729.1 Sahara Perera, 05/20/2015 - 10mg at bedtime [facility] 08/23/2015 Tablets Cymbalta 1 by mouth every 30caps 729.1 Sahara Perera, 05/20/2015 - 60mg Caps DR Part day MANAGER ENGAGEMENT 09/18/2015 311 Gabapentin Take 1 Capsule 90caps [...] needed flora chou [address], [place] [address] Omeprazole take 1 capsule 90caps 530.81 Leslie Rowan 01/20/2014 - 20mg Capsules by mouth once Marlena Simental 05/20/2015 DR daily Losartan Potassium Take 1 Tablet By 90tabs I10 Sahara Perera, 07/27/2013 - 25mg Mouth Every Day [facility] 06/03/2018 Tablets Ibuprofen 1 po tid prn 90tabs 724.2 Candace 07/26/2013 - 800mg Tablets Lisa Kendrick 04/08/2014 Physical Therapy Evaluate and 724.2 Shraddha Briggs NP 07/26/2013 - treat low back 04/08/2014 pain and bilateral hip pain Triamterene/Hydrochlor Take 0.5 Capsule 90caps I10 Sahara Perera, 2012 - othiazide By Mouth Every MANAGER ENGAGEMENT 06/03/2018 37.5-25mg Day Capsules Methylphenidate HCL one tab by mouth 180tabs 347.00 Leslie Rowan 03/15/2013 - 10mg twice a day mira Simental M.D. 05/20/2015 Tablets code e. Methylphenidate HCL CD one tab po q am 30caps 347.00 Andrade Calderon 2012 - Marlena Lopez 03/15/2013 10mg Capsules ER Cyclobenzaprine HCL take 1 tablet by 30tabs Candace 03/11/2013 - 10mg [facility] Tablets evening if needed for muscle spasm Orphenadrine Citrate 1 po bid prn for 60tabs 729.1 Lexii Sandyigne, 2012 - ER muscle spasm [facility] 03/11/2013 100mg Tablets ER 12HR Prilosec 1 po qd 90caps Zafar A. 05/07/2010 - 20mg Capsules DR John M.D. 01/20/2014 Lyrica 1 by mouth twice 180caps 729.1 Lexii Darby, 04/12/2010 - 75mg Capsules a day [facility] 05/20/2015 Cymbalta take 2 capsules 60caps 311 Leslie L. 04/12/2010 - 60mg Caps DR by mouth once Marlena Simental 05/20/2015 Part daily pudt Savella 1 po bid 180tabs 729.1 Andrade AAlisa 02/28/2010 - 50mg Tablets Marlena Lopez 03/06/2010 Wellbutrin XL 1 po daily 90tabs 311 Andrade Calderon 02/28/2010 - 150mg Marlena Lopez 02/17/2013 Tablets ER 24HR Lyrica two a day for a 21caps Andrade A. 02/28/2010 - 25mg Capsules week and then Marlena Lopze 04/12/2010 one a day for a week Vicodin 1 po tid prn 90tabs Andrade AAlisa 01/17/2010 - 5-500mg Tablets Marlena Lopez 03/11/2013 Cymbalta 1 po qd 90caps 311 Zafar A. 11/27/2009 - 60mg Caps DR John M.D. 04/12/2010 Part Lyrica 1 po q am 2 po q 729.1 Family [facility] 10/18/2009 - 75mg Capsules [facility] 02/28/2010 [place] Azithromycin 2 po today and 1 6tabs 465.9 Zafar A. 10/18/2009 - 250mg po x 4 days Marlena Lopez 11/27/2009 Tablets Triamterene-HCTZ Take 1 Capsule 90caps Andrade AAlisa 08/27/2009 - By Mouth Once Marlena Lopez 10/18/2009 37.5-25mg Caps Daily Vitamin D take one capsule 4caps Andrade Calderon 08/23/2009 - 90329Anlj by mouth weekly Marlena Lopez 02/17/2013 Capsules Flexeril 1 po qhs prn 30tabs Andrade Calderon 08/23/2009 - 10mg Tablets muscle spasm Marlena Lopez 02/17/2013 Betamethasone apply to suff 709.9 Andrade Calderon 08/23/2009 - Dipropionate affected area Marlena Lopez 08/16/2014 0.05% Cream bid for up to two weeks 10cm Omeprazole take 1 capsule 90caps Andrade Calderon 03/19/2009 - 20mg Capsules by mouth once Marlena Lopez 02/17/2013 DR li Provigil one tab po qam 90tabs 347.00 Andrade Calderon 02/13/2009 - 200mg Tablets Marlena Lopez 02/17/2013 Note non latex cpap 1units 307.49 Andrade Calderon 02/13/2009 - face mask Marlena Lopez 10/18/2009 dx 307.9 Triamterene/Hydrochlor take 1 capsule 90caps Andrade AAlisa 11/25/2008 - othiazide by mouth once Marlena Lopez 06/28/2013 37.5-25 Caps daily Omeprazole take 1 capsule 30units Andrade Calderon 10/28/2008 - 20mg CPDR by mouth once Marlena Lopez 10/18/2009 daily Ritalin 1 po bid 60tabs 347.00 Andrade Calderon 10/03/2008 - 5mg Tablets Marlena Lopez 02/13/2009 Baclofen One qhs prn 30tabs Andrade Calderon 10/03/2008 - 10mg Tablets Spasm Marlena Lopez 08/23/2009 Ritalin 1 po bid 60tabs 347.00 Andrade AAlisa 01/21/2008 - 5mg Tablets Marlena Lopez 10/03/2008 Doxepin HCL take 1.5 hours 30caps 780.79 Andrade Calderon 01/12/2008 - 25mg Capsules before bed Marlena Lopez 05/23/2008 Ambien 1 by mouth every 30tabs 780.52 Marielle 12/01/2007 - 10mg Tablets night at bedtime RiccoLUIS EDUARDO 05/20/2015 as needed sleep generic ok pudt Ambien CR one tab po daily 30tabs Andrade Calderon 11/19/2007 - 12.5mg Tablets Marlena Lopez 12/01/2007 ER Lyrica 1 po bid 60caps 729.1 Andrade Calderon 11/17/2007 - 75mg Capsules Marlena Lopez 10/18/2009 [...] Lopez 02/06/2010 Aerosol Astelin 1 spray q 1units Andrade Calderon 11/17/2007 - 137mcg/Jamison nostril bid Marlena Lopez 11/27/2009 Solution Glycolax 1 cap mixed with 1Bottl Andrade AAlisa 11/17/2007 - 3350NF Powder water at Marlena Lopez 10/18/2009 Vitamin C/Fariba Hips bid Andrade Calderon 11/17/2007 - 500mg Marlena Lopez 05/20/2015 Tablets Zantac 1 po q hs 30units Andrade Calderon 11/17/2007 - 150mg Packet Marlena Lopez 12/01/2007 Diazepam 1 tid prn 90tabs Andrade Calderon 11/17/2007 - 10mg Tablets Marlena Lopez 09/05/2009 Prilosec 1 po qd 30caps Andrade AAlisa 11/17/2007 - 20mg Capsules DR John M.D. [...] by mouth every Unknown - day 05/14/2018 [id number] Tablets Aspir-81 1 by mouth every Unknown - 81mg Tablets DR 11/25/2018 Medications Administered in Office Medication SIG Qnty Indications Ordering Provider Date Brief Emotional/Behav Leslie Simental M.D. 02/12/2018 Assessment W/ Scoring Doc Per Standard Inst Injection H1N1 MDCR vaccine any route Andrade Lopez M.D. 09/05/2009 Injection Immunizations CPT Code Status Date Vaccine Lot # [id number] Given 07/07/2018 Zoster (Shingles) Vaccine (HZV), Recombinant, [id number] Subunit, Adjuvanted 66378 Given 07/07/2018 Influenza Vac, Quadrivalent, Slit Virus, Im [id number] 57832 Given 07/07/2018 Pneumococcal Conjugate Vacc-13 [id number] 14704 Given 07/11/2017 Influenza Vac, Quadrivalent, Slit Virus, Im [id number] 13394 Given 08/28/2015 Influenza Vac, Quadrivalent, Slit Virus, Im [id number] Q2038 Given 08/16/2014 Split Influenza Medicare: Fluzone [id number] 59630 Given 07/27/2013 Tdap Tetanus, W Pertussis [id number] Given 07/26/2013 Split Influenza Medicare: Fluzone 47791 Given 07/26/2013 DO Not Use Split Influenza Virus Vaccine [id number] 52795 Given 11/27/2009 DO Not Use Split Influenza Virus Vaccine [id number] 88669 Given 08/17/2008 DO Not Use Split Influenza Virus Vaccine [id number] 32386 Given 11/17/2007 DO Not Use Split Influenza Virus Vaccine [id number] Vital Signs Date Vital Result Comment 02/26/2019 [...] H/L Range Note Electrolytes Profile 12/01/2018 Josr Hawkins([facility]) Sodium 140 mEq/L 134 -149 Potassium 4.2 mEq/L 3.6-5.5 Chloride 103 mEq/L 94-112 Carbon Dioxide 25 mEq/L 21-32 Anion Gap 16.2 7.0-34.0 CBC Electronic Fma 11/26/2018 Josr Hawkins([facility]) WBC 7.3 x10^3/UL 4.0- 10.0 RBC 4.34 x10^6/UL 3.93-6.00 HGB 13.4 g/dL 12.0-17.0 HCT 40 % 35-50 MCV 92.4 fL 80.0-95.0 MCH 30.9 pg 25.6-32.2 MCHC 33.4 g/dL 32.2-36.0 RDW-CV 14.3 % 11.6-14.4 PLT 341 x10^3/UL 163-400 MPV 9.9 fL 9.4-12.4 Mellisa# 4.87 x10^3/UL 1.56-6.13 Lymph# 1.80 x10^3/UL 1.18-3.74 Stevens# 0.51 x10^3/UL 0.24-0.82 Eos # 0.1 x10^3/UL 0.0-0.5 Baso # 0.04 x10^3/UL 0.01-0.08 Mellisa% 66.6 % 34.0-70.0 Lymph % 24.6 % 20.0-52.0 Stevens% 7.0 % 5.0-12.0 Eos% 1.2 % 0.7-7.0 Baso% 0.5 % 0.1-1.2 Comprehensive Metabolic 11/26/2018 Josr Shruthi([facility]) Sodium 132 mEq/L Low 134-149 Prof [...] GFR >60 ml/min/1.73m^ >=60 Laboratory test 09/10/2018 Josr Hawkins(a) TSH 2.32 mIU/L 0.50-6.00 finding Laboratory test 07/07/2018 [facility] Cytology SEE RESULT 3 finding Thinprep BELOW w/rfx([facility]) Laboratory test 07/07/2018 [facility] Cologuard SEE ATTACHED finding [address] [place] [address] [phone] CBC Auto Diff 05/28/2018 [facility] White Blood 7.2 10^3/uL N 3.5-10.8 Count [...] 65.5 >60 4 Laboratory test finding 05/28/2018 [facility] C Reactive Protein 15.86 mg/L High <8.01 TSH (Thyroid Stim Horm) 7.21 mcIU/mL High 0.34-5.60 Troponin I 0.00 ng/mL <0.04 Inr/Protime 05/28/2018 [facility] Inr 0.93 N 0.77-1.02 Lipid Profile (Trig/Chol/HDL) 05/28/2018 [facility] Triglycerides 161 mg/dL 5 Cholesterol 201 mg/dL 6 HDL Cholesterol 58.4 mg/dL 7 LDL Cholesterol 110 mg/dL 8 Laboratory test finding 05/28/2018 [facility] Free T4 (Free 0.84 ng/dL N 0.61- 1.12 Thyroxine) Hemoglobin A1c (Glyco HGB) 5.4 % N 4.0-5.6 9 BUN/Creat/GFR 05/25/2018 [facility] Poc Blood Urea Nitrogen 20 mg/dL N 8-26 Poc Creatinine 0.9 mg/dL N 0.6-1.3 10 Poc BUN/Creatinine Ratio 22.2 High 8-20 Egfr Non- 63.2 >60 Egfr 76.5 >60 11 Lipid Profile 05/15/2018 [facility]) Cholesterol 207 mg/dL High 120-200 Triglycerides 250 mg/dL High 30-200 HDL Cholesterol 66 mg/dL 30-85 LDL (Calculated) 91 CALC 0-129 VLDL Cholesterol 50 mg/dL 0-50 HDL Risk Factor 3.1 CALC 0.0-4.4 Laboratory test 05/15/2018 [facility] Shruth[facility]) Magnesium, Serum 1.5 mEq/L 1.2-2.1 finding TSH 3.93 mIU/L 0.50-6.00 CBC Electronic Fma 05/15/2018 [facility] Shruthi([facility]) WBC 7.0 x10^3/UL 4.0- 10.0 RBC 4.28 x10^6/UL 3.93-6.00 HGB 13.3 g/dL 12.0-17.0 HCT 38 % 35-50 MCV 89.7 fL 80.0-95.0 MCH 31.1 pg 25.6-32.2 MCHC 34.6 g/dL 32.2-36.0 RDW-CV 15.0 % High 11.6-14.4 PLT 343 x10^3/UL 163-400 MPV 10.3 fL 9.4-12.4 Mellisa# 4.57 x10^3/UL 1.56-6.13 Lymph# 1.90 x10^3/UL 1.18-3.74 Stevens# 0.43 x10^3/UL 0.24-0.82 Eos # 0.1 x10^3/UL 0.0-0.5 Baso # 0.04 x10^3/UL 0.01-0.08 Mellisa% 64.9 % 34.0-70.0 Lymph % 27.0 % 20.0-52.0 Stevens% 6.1 % 5.0-12.0 Eos% 1.3 % 0.7-7.0 Baso% 0.6 % 0.1-1.2 Laboratory test 05/15/2018 Josr Hawkins(a) Amylase, Serum 77 U/L 20- 105 finding Laboratory test 05/15/2018 [facility] Lipase 38 U/L 14-72 12 finding [address] [place] [address] (607)- - Laboratory test 05/15/2018 Josr Hawkins([facility]) BUN 23 mg/dL 6-26 finding Creatinine 1.1 mg/dL 0.6-1.4 Laboratory test finding 02/05/2017 [facility] Troponin I 0.01 ng/mL N <0.04 13 CBC Auto Diff 02/05/2017 [facility] White Blood Count 8.3 10^3/uL N 3.5-10.8 [...] % 0.1 N Laboratory test finding 02/05/2017 [facility] Lactic Acid 1.6 mmol/L N 0.5-2.0 14 Troponin I 0.00 ng/mL N <0.04 15 Comp Metabolic Panel 02/05/2017 [facility] Sodium 137 mmol/L N 133-145 Potassium 3.7 [...] N >60 16 Laboratory test finding 02/05/2017 [facility] Magnesium 1.7 mg/dL Low 1.9-2.7 CBC Auto Diff 10/25/2016 [facility] White Blood Count 6.5 10^3/uL N 3.5-10.8 [...] % 0.1 N Comp Metabolic Panel 10/25/2016 [facility] Sodium 135 mmol/L N 133-145 Potassium 4.0 [...] N >60 17 Laboratory test finding 10/25/2016 [facility] C Reactive Protein 12.87 mg/L High < 5.00 18 TSH (Thyroid Stim Horm) 3.42 mcIU/mL N 0.34-5.60 Free T4 (Free Thyroxine) 0.99 ng/dL N 0.61-1.12 Folic Acid (Folate) > 20.00 ng/mL N >3.99 Vitamin B12 293 pg/mL N 180-914 19 Angiotensin Converting Enzyme 46 U/L N 8 - 53 20 Lyme Disease Serology Negative N Negative 21 Connective Tissue Panel 10/25/2016 [facility] Anti-Nuclear Antibody 4.0 U High 22 Cyclic Citrullinated Peptide <15.6 U N 23 [place] Igg AB Reflex 10/25/2016 [facility] SS-A/Ro Antibody <0.2 U N 24 SS-B/La Antibody <0.2 U N 25 Sm (Cabrera) IgG Antibody <0.2 U N 26 U1-nRNP Antibody <0.2 U N 27 Scl-70 (Scleroderma) Antibody <0.2 U N 28 Lavern-1 Antibody <0.2 U N 29 Laboratory test finding 10/25/2016 [facility] Centromere Auto Abs <0.2 U N 30 Ribosomal Antibody <0.2 U N 31 Methylmalonic Acid Mma 0.25 nmol/mL N <=0.40 32 Anti Double Stranded Dna Ab < 12.3 IU/mL N 33 Interpretation See Comment N 34 Laboratory test 06/10/2016 [facility]) Vitamin D25 21 Low 30-100 finding [...] finding TSH 3.41 mIU/L 0.50-6.00 CBC Electronic ([facility]) 03/05/2016 [facility] WBC 5.8 3.6-9.6 (607)- - RBC [...] 13.2 mg/L High 0.0-4.9 35 finding [address] [facility] Protein, [place] [address] (607)- - Laboratory test 08/23/2015 Josr Hawkins(a) Vitamin B-12 403 pg/mL 230-1050 finding Vitamin [...] >60 ml/min/1.73m^ >=60 CBC Electronic (a) 08/23/2015 [facility] WBC 6.6 3.6-9.6 (607)- - RBC 4.35 [...] Volume 7.3 5.5-11.0 Comprehensive Metabolic 04/09/2014 [facility] Shruthi([facility]) Sodium 140 mEq/L 134-149 Prof Potassium 3.8 [...] Bilirubin 0.4 mg/dL 0.2-1.3 Lipid Profile 04/09/2014 Josr Hawkins([facility]) Cholesterol 218 mg/dL High 120-200 Triglycerides 143 mg/dL 30-200 HDL Cholesterol 68 mg/dL 30-85 LDL (Calculated) 121 CALC 0-129 VLDL Cholesterol 29 mg/dL 0-50 HDL Risk Factor 3.2 CALC 0.0-4.4 Laboratory test finding 04/09/2014 Josr Hawkins([facility]) TSH 3.44 mIU/L 0.50-6.00 Amylase, Serum 58 U/L 20-105 CBC Electronic ([facility]) 04/09/2014 [facility] Medicine WBC 5.0 3.6-9.6 (607)- - RBC 3.87 Low 3.90-5.70 Hemoglobin (Fma/CMC/CTX) 11.9 g/dL Low 12.1 - 17.2 Hematocrit (a/CMC/CTX) 36.0 % Low 36.1 - 50.3 Platelets 294 10^3/ul 150-400 Lymph% 44.5 % 17.0-48.0 Mixed% 5.2 Neutrophils % 50.3 Mean Corpuscular Vol 93 82.2-97.4 Mean Corpuscular Hemoglobin 30.6 27.6-33.3 Mean Corpuscular Hemo Concen 32.9 32.0-36.0 RDW 14.8 High 11.6-13.7 Mean Platelet Volume 8.0 5.5-11.0 Laboratory test 04/09/2014 [facility] C-Reactive 18.0 mg/L High 0.0-5.0 37 finding 28 [facility] [address] [phone] Lipase 31 U/L 1-64 Laboratory test 01/04/2014 [facility] Thin Prep W/HPV SEE NOTE 38 finding 28 [place] [address] [phone] Ua - Micro ([facility]) 07/27/2013 [facility] Appearance CLEAR (607)- - Color YELLOW Glucose NEG Bilirubin NEG Ketones NEG SP Grav <=1.005 Blood SMALL # PH 6.5 Protein NEG Urobil 0.2 Nitrite NEG Leukocytes (a/CMC/[facility]) SMALL # Hyaline - /Lpf Granular - /Lpf WBC (a,[facility]) 3-6 # RBC 3-4 # Mucus - /Lpf Epith OCC /Lpf # Bacteria TRACE /Hpf # Amorphous - /Lpf Crystals, Fluid (Fma/CMC/CTX) - Z#Comments - Laboratory test finding 11/27/2009 [facility]valles Shruthi([facility]) TSH 3.37 mIU/L 0.50-6.00 Free T4 0.78 ng/dL 0.75-1.54 Comprehensive Metabolic 11/27/2009 [facility] Shruthi([facility]) Albumin 4.6 g/dL 3.8-5.5 Prof Alk. Phos. [...] 22.8 Calc 8.0-36.0 Laboratory test finding 11/27/2009 [facility] Shruthi([facility]) B12 359 pg/mL 230 -1050 CBC ([facility]) 11/27/2009 [facility] WBC 4.0 3.6-9.6 (607)- [...] Platelet Volume 12.6 High 7.4-10.4 Laboratory test 11/27/2009 [facility] C-Reactive 1.6 mg/dL High 0.0-0.[address] Protein [place], [place] [id number] [phone] Influenza A&B 10/18/2009 [facility] Influenza A NEGATIVE (607)- - Influenza B NEGATIVE Laboratory 09/12/2009 [facility] Rheumatoid 7.4 IU/mL 0.0-13.9 39 test finding 28 [facility] Arth Factor [place], [place] [id number] [phone] Lyme Igg/Igm 09/12/2009 [facility] Lyme 0.19 INDEX Negative 40 (CX) 28 [facility] Disease,Igg/[place] [address] gm [phone] Laboratory 09/12/2009 [facility]) Creatine 44 U/L 26-140 test finding Kinase Laboratory 08/23/2009 [facility] Antinuclear POSITIVE Abnormal Negative 41 test finding 28 [facility] AB (Elza) [place] [address] [phone] Vitamin D, 25 Oh 31.3 ng/mL Low 32.0-100.0 42 Laboratory test finding 08/23/2009 [facility]) Magnesium 1.7 mEq/L 1.2-2.1 Comprehensive Metabolic 08/23/2009 [facility]) Albumin 4.5 g/dL 3.8-5.5 Prof Alk. [...] 0.6-2.2 BUN/Creat Ratio 18.2 Calc 8.0-36.0 CBC ([facility]) 08/23/2009 [facility] WBC 6.0 3.6-9.6 (607)- - RBC 4.14 [...] Volume 11.5 High 7.4-10.4 Antibody Titer 08/23/2009 [facility] Titer, [facility] TITER=1:320 Abnormal 43 [address] [place] [address] [phone] Vitamin D, 25 07/19/2009 [facility] 25-Hydroxy <4.0 ng/mL () Hydroxy Vitamin D2 25-Hydroxy Vitamin D3 13 ng/mL () 25-Hydroxy Vitamin D Total 13 ng/mL Abnormal () 44 Comprehensive Metabolic 05/11/2009 [facility] Shruthi([facility]) Albumin 4.6 g/dL 3.8-5.5 Prof Alk. Phos. 105 U/L 30-110 Alt [...] Calc 0.6-2.2 BUN/Creat Ratio 21.8 Calc 8.0-36.0 Laboratory test 05/11/2009 [facility] Shruthi([facility]) Amylase 141 U/L High 20- 105 45 finding CBC ([facility]) 05/11/2009 [facility] WBC 5.4 3.6-9.6 (607)- - RBC 4.36 3.90-5.70 Hemoglobin (Fma/CMC/CTX) 13.0 g/dL 12.1 - 17.2 Hematocrit (a/CMC/CTX) 40.0 % 36.1 - 50.3 Mean Corpuscular Vol 91.7 82.2-97.4 Mean Corpuscular Hemaglobin 29.8 27.6-33.3 Mean Corpuscular Hemo Concen 32.5 Low 33.0-36.0 Platelets 295 10^3/ul 150-400 Lymph% 37.8 20.5-51.1 Mixed% 3.7 Neutrophils % 58.5 RDW 14.9 High 11.6-13.7 Mean Platelet Volume 11.5 High 7.4-10.4 Ua - Micro ([facility]) 08/17/2008 [facility] Appearance CLOUDY (607)- - Color YELLOW Glucose NEG Bilirubin NEG Ketones NEG SP Grav 1.020 Blood TRACE # PH 5.5 Protein NEG Urobil 0.2 Nitrite NEG Leukocytes (a/CMC/[facility]) MODERATE Hyaline - /Lpf Granular - /Lpf WBC ([facility]) 8-10 RBC 3-5 Mucus - /Lpf Epith FEW /Lpf Bacteria 3+ /Hpf Amorphous SMALL AMT /Lpf Crystals, Fluid (a/CMC/CTX) - Z#Comments - Ua - Micro ([facility]) 07/22/2008 [facility] Appearance CLEAR (607)- - Color YELLOW Glucose NEG Bilirubin ICTO NEGATIVE Ketones TRACE SP Grav 1.025 Blood TRACE # PH 6.0 Protein SSA NEGATIVE Urobil 0.2 Nitrite NEG Leukocytes (a/CMC/[facility]) NEG Lipid Profile 07/22/2008 [facility](fma) Cholesterol 219 mg/dL High 120-200 HDL 72 mg/dL 30-85 Triglycerides 74 mg/dL 30-200 HDL Risk Factor 3.1 CALC Low 4.2-7.0 LDL (Calculated) 133 CALC High 0-129 VLDL (Calculated) 15 mg/dL 0-50 Comprehensive Metabolic 07/22/2008 [place] [facility](fma) Albumin 4.2 g/dL 3.8-5.5 Prof Alk. Phos. 73 U/L 30-110 Alt (SGPT) [...] REPEAT ANALYSIS 3 SEE RESULT BELOW Name: AVRIL CHOUERINE : [address]: Candace Kendrick ZONING TECHNICIAN Acct: [id number] Unit: [id number] AGE: 63 Location: [facility] Re07/07/18 SEX: F Status: REG REF SPEC: [id number] JOSE CARLOS: 07/07/18-[address]: Candace Kendrick ZONING TECHNICIAN REQ: [id number] RECD: 07/07/18 STATUS: SOUT _ ORDERED: TP IMAGE ANALYS, HPV/Thin Prep, HPV 16/18 GENE COMMENTS: [id number] Negative for Intraepithelial lesion or Malignancy Date [...] Signed by and Reported on: BARBRA Mota(ASCP) [id number] This Pap test was evaluated with the assistance of the ThinPrep Test Imaging System. Due to cytologic findings at the sales recruiting coordinator microscope, comprehensive manual rescreening by a Special Agent [employer] may be required. The Pap Smear is [...] years. END OF REPORT DEPARTMENT OF PATHOLOGY, [address] [place] [address] Venkat Cr M.D. Director [facility] # [id number] 4 Because ethnic data is not always [...] in selective patients <6.0%. Please refer to [place] [employer] diabetic care guidelines for further information. 10 Early Childhood Associate: [id number] 11 Because ethnic data is not always [...] 13 99th percentile=0.04 ng/mL Troponin results at [facility] and [facility] are not interchangeable. 14 [facility] Severe Sepsis and Septic Shock Management Bundle Measure requires all lactic acids initially measuring >2.0 mmol/L be repeated. 15 99th percentile=0.04 ng/mL Troponin results at [facility] and [facility] are not interchangeable. 16 Because ethnic data [...] Deficient Range <145 20 Test Performed by: [place] [address] Clinic Office Assistant: William Vo II, M.D., Ph.D. 21 Serologic response to B. burgdorferi infection is not detected, but cannot rule out early infection during which low or undetectable antibody levels to B. burgdorferi may be present. If clinically indicated, a new serum specimen should be submitted in 7-14 days. Test Performed by: [place] [address] Clinic Office Assistant: William Vo II, M.D., Ph.D. 22 Interpretation: Positive (3.0-5.9) REFERENCE VALUE <=1.0 (Negative) 23 REFERENCE VALUE <20.0 (Negative) Test Performed by: [facility] [address] [place] [address] Clinic Office Assistant: William Vo II, M.D., Ph.D. 24 REFERENCE VALUE <1.0 (Negative) 25 REFERENCE VALUE <1.0 (Negative) 26 REFERENCE VALUE <1.0 (Negative) 27 REFERENCE VALUE <1.0 (Negative) 28 REFERENCE VALUE <1.0 (Negative) 29 REFERENCE VALUE <1.0 (Negative) Test Performed by: [address] [address] Clinic Office Assistant: William Vo II, M.D., Ph.D. 30 REFERENCE VALUE <1.0 (Negative) Test Performed by: [address] [address] Clinic Office Assistant: William Vo II, M.D., Ph.D. 31 REFERENCE VALUE <1.0 (Negative) Test Performed by: [place] [address] Clinic Office Assistant: William Vo II, M.D., Ph.D. 32 ADDITIONAL INFORMATION This test was developed and its performance characteristics determined by [facility] in a manner consistent with CLIA requirements. This test has not been cleared or approved by the U.S. Food and Drug Administration. Test Performed by: [place] [address] Clinic Office Assistant: William Vo II, M.D., Ph.D. 33 Negative for dsDNA antibody by enzyme immunoassay. No further testing recommended. REFERENCE VALUE <30.0 (Negative) Test Performed by: [place] [address] Clinic Office Assistant: William Vo II, M.D., Ph.D. 34 RESULT: Compatible with early connective tissue disease. Test Performed by: [place] [address] Clinic Office Assistant: William Vo II, M.D., Ph.D. 35 1SST 36 result abelardo''d 37 FASTING; 1 SST; 1 YELLOW TOP 38 [facility] [employer] 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 [id number] Requisition #: [id number] CYTOLOGIC INTERPRETATION: SPECIMEN ADEQUACY SATISFACTORY FOR EVALUATION. THE PRESENCE OF TRANSFORMATION ZONE COMPONENT CANNOT BE DETERMINED DUE TO ATROPHIC CHANGES. GENERAL CATEGORIZATION NEGATIVE FOR INTRAEPITHELIAL LESIONS OR MALIGNANCY RECOMMENDATIONS See Related Reference Test Result below. Refer to the corresponding web sites for 2012 updated general recommendation guidelines of [place] preventive service task force for cervical cancer screening, and www.asccp.org//bnobdyhen2738. COMMENTS Thin Prep Pap tests are examined [...] occur. 00 UA Pap Smear performed at [facility] [place]: [place], [address] [place] [address] 01 bread room hand [facility] [place] Dir: Dakota Velazquez MD, [address] [facility] [id number] 02 BN [facility] [place] Dir: William Doshi MD, [address] [place] [id number] For inquiries regarding HPV test results, the physician may contact [facility]: [phone] . 39 2 SST 40 < or=0.80 [...] normal population are 25-80 Test Performed by: [facility] Dpt of Lab Med and Pathology [address] [place] [address] Clinic Office Assistant: Chau Peterson III, M.D. 45 RESULT ABELARDO'D Procedures Date Code Description Status 01/21/2019 10267 Pulse Oximetry Completed 02/12/2018 28011 Brief Emotional/Behav Assessment W/ Scoring Doc Per Completed Standard Inst 02/10/2017 298354476 Bone Mineral Density Test Completed 03/05/2016 67217 Electrocardiogram Complete Completed 04/08/2014 34586 Pulse Oximetry Completed 02/15/2010 12075 Jayla-Noninvasive physiologic studies of upper or lower Completed extremity 10/27/2008 77059176 Mammogram Completed Encounters Type Date Location Provider Dx Diagnosis Office Visit 01/21/2019 Main Office KAYE Webster J44.9 Chronic obstructive 7:00p pulmonary disease, unspecified R05 Cough Office Visit 01/14/2019 5:45p Main Office Joyce Nguyen J44.9 Chronic obstructive 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 deficiency, unspecified R53.82 Chronic fatigue, unspecified G31.84 Mild cognitive impairment, so stated Office Visit 06/10/2016 1:40p Main Office Leslie Rowan E55.9 Vitamin Gilda Simental M.D. 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[place], 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 Afnp-C 729.1 Myalgia & Myositis Unspec [...] Chronic Fatigue Syndrome Office Visit 02/17/2013 11:30a [facility] Office Lexii Sandyigne, 729.1 Myalgia & Afnp-C Myositis Unspec 347.00 [...] 11/27/2009 1:30p [facility] Andrade Calderon 729.1 Myalgia & Marlena Lopez Myositis Unspec 724.2 Lumbago [...] Office Andrade Lopez 729.1 Myalgia & Myositis Mohinder.Eren Unspec 724.2 Lumbago Office Visit 09/05/2009 4:30p [facility] Andrade Calderon 729.1 Myalgia & Marlena Lopez Myositis Unspec 796.9 Abnormal Findings Other Nonspec V04.81 Need For Prophylactic Vaccination & Inoculation/Influenza Office Visit 08/23/2009 1:20p [facility] Office Andrade Calderon 729.1 Mybill & Marlena Lopez Myositis Unspec 269.2 Vitamin Deficiency Unspec 709.9 Skin & Subcutaneous Tissue Disorders Unspec Office Visit 05/11/2009 4:00p Main Office Andrade Calderon 789.07 Pain Abdominal Marlena Lopez Generalized 724.2 Lumbago Office Visit 02/13/2009 3:50p [facility] Andrade Calderon 347.00 Narcolepsy W/O Marlena Lopez Cataplexy 340 Multiple Sclerosis 729.1 Myalgia & Myositis Unspec 307.49 Sleep Disorder Other Office Visit 10/03/2008 4:00p Main Office Desiree Kimble M.D. 729.1 Myalgia & Myositis Unspec 724.2 Lumbago Office Visit 08/17/2008 4:10p [facility] Andrade Lopez M.D. Sclerosis 729.1 Myalgia & Myositis Unspec 599.70 Hematuria, Unspecified V04.81 Need For Prophylactic Vaccination & Inoculation/Influenza Office Visit 07/22/2008 9:00a [facility] Office Andrade Calderon V70.0 Examination Marlena Lopez [...] Visit 12/01/2007 2:10p Main Office Andrade Lopez 729.1 Myalgia & Myositis M.D. Unspec Office Visit 11/17/2007 2:00p Main Office Andrade Lopez, 340 Multiple Sclerosis Mohinder.D. 729.1 Myalgia & Myositis Unspec 311 Depressive Disorder Not Elsewhere Spec 300.00 Anxiety State Unspec V04.81 Need For Prophylactic Vaccination & Inoculation/Influenza Plan of Treatment Future Appointment(s):03/26/2019 1:00 pm - Leslie Simental M.D. at [facility] [id number]/26/2019 - Leslie Simental M.D.J20.9 Acute bronchitis, unspecifiedNew Medication:Medrol 4 mg - use as directedComments:take the advair twice a day every day. use the nebulizer every 3-4 hours as neededuse the ventolin when the nebulizer is not available. ordering a chest xrayburst of prednisone. consider referral to apulmonologist in the future.AllComments: Medication Management Patient Understands medications she's taking? Yes No Are there Barriers to Adherence? Yes No Has the patient been asked about herbal supplements and therapies, and OTC meds? Yes No Care Plan1. Patient has been queried about patient's goals/preferences and functional/lifestyle goals at relevant visits. If relevant, describe: na2. Treatment goals asexplained to the patient: above3. Are there barriers to meeting treatment goals? Yes No IfYes, please describe:4. Self- Management goals as described to the patient: Yes No as above.
--- NOTE | 2019-02-28 16:38 | ED ---
Syncope/Near Syncope - HPI Summary HPI Summary: This patient is a 63 year old F brought in by ambulance to [facility] with a chief complaint of a near syncopal event at 1430 this afternoon with lightheadedness and a flushed sensation. Lightheadedness currently resolved; flushed sensation persists. Reports one bout of vomiting yesterday and one bout today. Denies current nausea. Additionally reports elevated blood pressure readings throughout the day. Patient is concerned for stroke as she had a stroke in May of 2018. - History Of Current Complaint Chief Complaint: EDGeneral Time Seen by Provider: 02/28/19 16:20 Hx Obtained From: Patient Onset/Duration: Sudden Onset, Lasting Minutes Activity At Onset: Unknown - sit to standing Associated Head Trauma: No Aggravating Factor(s): Position Change Alleviating Factor(s): Nothing Associated Signs And Symptoms: Lightheadedness - Allergies/Home Medications Allergies/Adverse Reactions: Allergies Allergy/AdvReac Type Severity Reaction Status Date / Time latex Allergy Hives Verified 05/28/18 01:47 Home Medications: Home Medications Albuterol Sulfate [Ventolin Hfa] 2 puff INH Q4HR PRN 02/28/19 [History Confirmed 02/28/19] Benzonatate CAP* [Tessalon 100 MG CAP*] 100 mg PO TID PRN 02/28/19 [History Confirmed 02/28/19] Cyanocobalamin TAB* [Vitamin B12 TAB*] 500 mcg PO DAILY 02/28/19 [History Confirmed 02/28/19] Fluticasone-Salmeterol 250-50* [Advair Diskus 250-50*] 1 puff INH BID 02/28/19 [ History Confirmed 02/28/19] Ipratropium/Albuterol Sulfate [Iprat-Albut 0.5-3(2.5) mg/3 ml] 3 ml INH QID PRN 02/28/19 [History Confirmed 02/28/19] Losartan TAB* [Cozaar TAB*] 25 mg PO DAILY 02/28/19 [History Confirmed 02/28/19] Vitamin B Complex TAB* [B Complex-50*] 1 tab PO DAILY 02/28/19 [History Confirmed 02/28/19] PMH/Surg Hx/FS Hx/Imm Hx Endocrine/Hematology History: Denies: Hx Anticoagulant Therapy, Hx Diabetes Cardiovascular History: Reports: Hx Hypertension Denies: Hx Cardiac Arrest, Hx Pacemaker/ICD Respiratory History: Denies: Hx Chronic Obstructive Pulmonary Disease (COPD) History: Denies: Hx Dialysis, Hx Renal Disease Musculoskeletal History: Reports: Hx Arthritis, Hx Back Problems, Hx Osteoporosis Sensory History: Reports: Hx Contacts or Glasses Denies: Hx Hearing Aid Opthamlomology History: Reports: Hx Contacts or Glasses Neurological History: Reports: Hx CVA, Hx Dementia Denies: Hx Seizures Psychiatric History: Reports: Hx Anxiety, Hx Depression, Hx Panic Disorder - WITH MRIS - Surgical History Surgery Procedure, Year, and Place: TONSILECTOMY;. TUBAL LIGATION, THEN REVERSAL;. 2 ECTOPIC -1983 & 1992;. ADHESION REMOVED ABD- AND APPENDECTOMY;. BREAST REDUCTION -2001, DIFFCIULTY WITH IT A MONTH LATER WENT BACK INTO SURG, THEN 2009 MORE PROBLEMS WITH BREAST INCISIONS OPENING AND ALSO LUMPECTOMY- Rt (BENIGN);. FIBROID CYST -UTERINE; Infectious Disease History: No Infectious Disease History: Denies: Traveled Outside the [place] in Last 30 Days - Family History Known Family History: Positive: Hypertension - Social History Alcohol Use: None Alcohol Amount: 1 drink/ day Substance Use Type: Reports: None Smoking Status (MU): Never Smoked Tobacco Review of Systems Positive: Skin Diaphoresis - flushed, Other - lightheaded Positive: Vomiting Positive: Syncope - near All Other Systems Reviewed And Are Negative: Yes Physical Exam - Summary Physical Exam Summary: Appearance: The patient is well-nourished in no acute distress and in no acute pain. Skin: The skin is warm and dry and skin color reflects adequate perfusion. HEENT: The head is normocephalic and atraumatic. The pupils are equal and reactive. The conjunctivae are clear and without drainage. Nares are patent and without drainage. Mouth reveals moist mucous membranes and the throat is without erythema and exudate. The external ears are intact. The ear canals are patent and without drainage. The tympanic membranes are intact. Neck: The neck is supple with full range of motion and non-tender. There are no carotid bruits. There is no neck vein distension. Respiratory: Chest is non-tender. Lungs are clear to auscultation and breath sounds are symmetrical and equal. Cardiovascular: Heart is regular rate and rhythm. There is no murmur or rub auscultated. There is no peripheral edema and pulses are symmetrical and equal. Abdomen: The abdomen is soft and non-tender. There are normal bowel sounds heard in all four quadrants and there is no organomegaly palpated. Musculoskeletal: There is no back tenderness noted. Extremities are non-tender with full range of motion. There is good capillary refill. There is no peripheral edema or calf tenderness elicited. Neurological: Patient is alert and oriented to person, place and time. The patient has symmetrical motor strength in all four extremities. Cranial nerves are grossly intact. Deep tendon reflexes are symmetrical and equal in all four extremities. Psychiatric: The patient has an appropriate affect and does not exhibit any anxiety or depression Triage Information Reviewed: Yes Vital Signs On Initial Exam: Initial Vitals Temp Pulse Resp BP Pulse Ox 98.0 F 100 16 140/72 95 02/28/19 16:16 02/28/19 16:16 02/28/19 16:16 02/28/19 16:16 02/28/19 16:16 Vital Signs Reviewed: Yes - [place] Coma Scale Best Eye Response: 4 - Spontaneous Best Motor Response: 6 - Obeys Commands Best Verbal Response: 5 - Oriented Coma Scale Total: 15 Diagnostics - Vital Signs Vital Signs Temp Pulse Resp BP Pulse Ox 02/28/19 16:16 98.0 F 100 16 140/72 95 - Laboratory Result Diagrams: 02/28/19 17:12 02/28/19 17:12 Lab Statement: Any lab studies that have been ordered have been reviewed, and results considered in the medical decision making process. - CT Brain CT CT Interpretation Completed By: Radiologist Summary of CT Findings: Likely old infarct left frontal lobe deep white matter. No intracranial mass. or hemorrhage. Overall no changes noted since May 29, 2018. ED Physician has reviewed this report. - EKG 1649 Cardiac Rate: NL - 91 BPM EKG Rhythm: Sinus Rhythm Summary of EKG Findings: Normal sinus rhythm, normal ST, no ectopy, no STEMI Course/Dx Course Of Treatment: Ms. Martinez had a near syncopal episode today and was concerned that she had had a stroke. She really has no symptoms on arrival here and her exam was unremarkable. She was kept on a monitor and observed while labs and CT were obtained and were unremarkable. I recommended close follow-up with her PCP. - Diagnoses Provider Diagnoses: Near syncope Discharge - Sign-Out/Discharge Documenting (check all that apply): Patient Departure - discharge Patient Received Moderate/Deep Sedation with Procedure: No - Discharge Plan Condition: Stable Disposition: HOME Patient Education Materials: Syncope (ED) Referrals: Leslie Simental MD [Primary Care Provider] - 2 Days Additional Instructions: RETURN TO THE EMERGENCY DEPARTMENT FOR CHANGING OR WORSENING SYMPTOMS. - Billing Disposition and Condition Condition: STABLE Disposition: Home - Attestation Statements Document Initiated by Scribe: Yes Documenting Scribe: Shweta Dubois Provider For Whom Dwayne is Documenting (Include Credential): Coleman Estrada MD Scribe Attestation: Shweta Xavier, scribed for Coleman Estrada MD on 02/28/19 at 2114. Scribe Documentation Reviewed: Yes Provider Attestation: The documentation as recorded by the Shweta velazquez accurately reflects the service I personally performed and the decisions made by Coleman harrison MD Status of Scribe Document: Viewed
[2019-02-28 17:21] LABS: ABS Eosinophils 0.1 10^3/ul (0-0.6); ABS Lymphocytes 2.2 10^3/ul (1.0-4.8); ABS Monocytes 0.7 10^3/ul (0-0.8); ABS Neutrophils 7.3 10^3/ul (1.5-7.7); Eosinophil % 0.6 %; Hematocrit 39 % (35-47); Hemoglobin 12.8 g/dL (12.0-16.0); Lymphocyte % 21.3 %; Mean Corpuscular HGB Conc 33 g/dL (31-36); Mean Corpuscular Hemoglobin 31 pg (27-31); Mean Corpuscular Volume 93 fL (80-97); Mean Platelet Volume 7.8 fL (7.4-10.4); Platelet Count 359 10^3/uL (150-450); Red Blood Count 4.17 10^6 /uL (3.70-4.87); Red Cell Distribution Width 15 % (10.5-15); White Blood Count 10.4 10^3/uL (3.5-10.8)
[2019-02-28 17:30] LABS: INR 0.9 (0.82-1.09)
[2019-02-28 17:37] LABS: Albumin 4.1 g/dL (3.2-5.2); Albumin/Globulin Ratio 1.2 (1-3); BUN/Creatinine Ratio 22.6 (8-20); Calcium 9.2 mg/dL (8.6-10.3); EGFR African American 73.4 (>60); EGFR Non-African American 60.7 (>60); Globulin 3.3 g/dL (2-4); Magnesium 1.6 mg/dL (1.9-2.7); Potassium 3.7 mmol/L (3.5-5.0); Total Bilirubin 0.3 mg/dL (0.2-1.0); Total Protein 7.4 g/dL (6.4-8.9)
[2019-02-28 18:05] LABS: TSH (Thyroid Stimulating Horm) 1.46 mcIU/mL (0.34-5.60)
[2019-02-28 19:17] VITALS: BP 141/107
== END 2019-02-28 19:15 | disposition home or self-care (01) ==
LOC: ED 16:12
DX: R55 Syncope and collapse (principal); I44.4 Left anterior fascicular block; R61 Generalized hyperhidrosis; R11.10 Vomiting, unspecified; I10 Essential (primary) hypertension; Z86.73 Personal history of transient ischemic attack (TIA), and cerebral infarction without residual deficits; Z91.040 Latex allergy status
CPT/HCPCS: 36415; 70450; 80053; 83605; 83735; 84443; 84484; 85025; 85610; 93005; 99283

== ENCOUNTER 2019-04-26 20:59 | Inpatient (IN) | payer MEDICARE, MEDICAID ==
--- NOTE | 2019-04-26 21:11 | ED ---
Dizziness - HPI Summary HPI Summary: This patient is a 63 year old F presenting to [facility] accompanied by EMS with a chief complaint of dizziness and near syncope since several hours ago. Patient states she was sitting down and almost fell when she tried to get up. She notes she called EMS because she could not walk and stumbling. Patient describes the dizziness as "room spinning" and notes that this has happened in the past about once a week. Per EMS, the patient was not alert or oriented, and seemed drunk when ambulating. Symptoms aggravated by nothing. Symptoms alleviated by nothing. Patient reports nausea. She states she had a stroke last year and that her current symptoms are similar to her previous stroke. Patient is on blood thinner medication. - History Of Current Complaint Stated Complaint: POSSIBLE STROKE PER EMS Time Seen by Provider: 04/26/19 21:02 Hx Obtained From: Patient, EMS Onset/Duration: Still Present, Suddenly Timing: Hours Severity Currently: None Character: Room Spinning Aggravating Factor(s): Nothing Alleviating Factor(s): Nothing Associated Signs And Symptoms: Positive: Nausea, Inability to Walk, Other: - room spinning dizziness Related History: Similar Episode/Dx as - pt notes her symptoms are similar to her previous stroke symptoms and that she has room spinning dizziness once a week - Allergies/Home Medications Allergies/Adverse Reactions: Allergies Allergy/AdvReac Type Severity Reaction Status Date / Time latex Allergy Hives Verified 05/28/18 01:47 Home Medications: Home Medications Acetaminophen [Acetaminophen Extra Strength] 1,000 mg PO PRN 04/26/19 [History] diphenhydrAMINE HCl [Diphenhydramine HCl] 25 mg PO 04/26/19 [History] PMH/Surg Hx/FS Hx/Imm Hx Previously Healthy: No Endocrine/Hematology History: Denies: Hx Anticoagulant Therapy, Hx Diabetes Cardiovascular History: Reports: Hx Hypertension Denies: Hx Cardiac Arrest, Hx Pacemaker/ICD Respiratory History: Denies: Hx Chronic Obstructive Pulmonary Disease (COPD) History: Denies: Hx Dialysis, Hx Renal Disease Musculoskeletal History: Reports: Hx Arthritis, Hx Back Problems, Hx Osteoporosis Sensory History: Reports: Hx Contacts or Glasses Denies: Hx Hearing Aid Opthamlomology History: Reports: Hx Contacts or Glasses Neurological History: Reports: Hx CVA, Hx Dementia Denies: Hx Seizures Psychiatric History: Reports: Hx Anxiety, Hx Depression, Hx Panic Disorder - WITH MRIS - Surgical History Surgical History: Yes Surgery Procedure, Year, and Place: TONSILECTOMY;. TUBAL LIGATION, THEN REVERSAL;. 2 ECTOPIC -1983 & 1992;. ADHESION REMOVED ABD- AND APPENDECTOMY;. BREAST REDUCTION -2001, DIFFCIULTY WITH IT A MONTH LATER WENT BACK INTO SURG, THEN 2009 MORE PROBLEMS WITH BREAST INCISIONS OPENING AND ALSO LUMPECTOMY- Rt (BENIGN);. FIBROID CYST -UTERINE; - Family History Known Family History: Positive: Hypertension - Social History Alcohol Use: None Alcohol Amount: 1 drink/ day Hx Substance Use: No Substance Use Type: Reports: None Hx Tobacco Use: No Smoking Status (MU): Never Smoked Tobacco Do You Chew or Dip Tobacco: No Have You Chewed or Dipped Tobacco in the LAST YEAR: No Have You Smoked in the Last Year: No Review of Systems Positive: Nausea Neurological: Other - positive - patient almost fell when trying to get up from sitting position, dizziness. negative - alert and oriented All Other Systems Reviewed And Are Negative: Yes Physical Exam - Summary Physical Exam Summary: VITAL SIGNS: Reviewed. GENERAL: Patient is a well-developed and nourished (MALE OR FEMALE) who is lying comfortable in the stretcher. Patient is not in any acute respiratory distress. HEAD AND FACE: No signs of trauma. No ecchymosis, hematomas or skull depressions. No sinus tenderness. EYES: PERRLA, EOMI x 2, No injected conjunctiva, no nystagmus. EARS: Hearing grossly intact. Ear canals and tympanic membranes are within normal limits. MOUTH: Oropharynx within normal limits. NECK: Supple, trachea is midline, no adenopathy, no JVD, no carotid bruit, no c- spine tenderness, neck with full ROM CHEST: Symmetric, no tenderness at palpation LUNGS: Clear to auscultation bilaterally. No wheezing or crackles. CVS: Regular rate and rhythm, S1 and S2 present, no murmurs or gallops appreciated. ABDOMEN: Soft, non-tender. No signs of distention. No rebound no guarding, and no masses palpated. Bowel sounds are normal. EXTREMITIES: FROM in all major joints, no edema, no cyanosis or clubbing. NEURO: Alert and oriented x 3. No acute neurological deficits. Speech is normal and follows commands. Patient was not able to walk because being off balance. Her gait and his ability to walk was tested before and after CAT scan was done. At this time patient was not able to walk and she was off balance with fall risk. SKIN: Dry and warm Triage Information Reviewed: Yes Vital Signs Reviewed: Yes Diagnostics - Laboratory Result Diagrams: 04/26/19 21:41 04/26/19 21:41 Lab Statement: Any lab studies that have been ordered have been reviewed, and results considered in the medical decision making process. - CT Brain CT Interpretation Completed By: Radiologist Summary of CT Findings: IMPRESSION: No acute intracranial pathology is appreciated. The brain had a similar appearance 2 months ago. These findings were reviewed by Dr. Gallardo Head CTA CT Interpretation Completed By: Radiologist Summary of CT Findings: IMPRESSION: No acute findings. No change since priors CTA study of 05/28/2018. These findings were reviewed by Dr. Gallardo. - EKG 2129 Cardiac Rate: NL - 98 BPM EKG Rhythm: Sinus Rhythm Summary of EKG Findings: 98 BPM and sinus rhythm. Dizzy Course/Dx - Course Course Of Treatment: This patient is a 63 year old F presenting to [facility] accompanied by EMS with a chief complaint of dizziness and difficulty to ambulate. She notes she called EMS because she could not walk and kept stumbling. Patient describes the dizziness, vertigo-like. Patient did have similar episode a week ago that was resolved completely. Patient reports nausea. She states she had a stroke last year and that her current symptoms are similar to her previous stroke. Patient is on blood thinner medication. Patient was given a tpa a year ago for possible stroke. MRI was negative after tpa. Physical exam shows patient is alert and oriented. Lab results show MCH 32, creatinine 1.16, glucose 102, POC Glucose 107, Ur specific gravity 1.046, urine blood 1+ A, Ur leukocyte esterase 2+ A, urine WBC (auto) 2+ A, urine RBC (auto) 1+ A, Ur Squamous Epith cells present A. Brain CT IMPRESSION: No acute intracranial pathology is appreciated. The brain had a similar appearance 2 months ago. Head CTA IMPRESSION: No acute findings. No change since priors CTA study of 05/28/2018. EKG at 2130 shows 98 BPM and sinus rhythm. During the ED course, the patient was given Alteplase 7 mg IV, Alteplase 70 mg IVPB, Augmentin, and Motrin. At 214404/26/19, Dr. Gallardo discusses patient's case with Dr. Meade. Stroke attending at the [facility]. Dr. Meade recommends giving the patient TPA. Based on her disability with inability to walk. Despite her NIH stroke scale of 0 when she was examined on the stretcher. At 0159 04/27/19, Dr. Gallardo discusses patient's case with , hospitalist. Dr. Olmstead agrees to admit the patient. The final diagnosis is CVA. Patient is agreeable to admission. - Diagnoses Provider Diagnoses: CVA (cerebral vascular accident) During the Visit The Following Alert/Code Occurred: Code Pérez - 2109 - Provider Notifications Discussed Care Of Patient With: Dr. Meade Time Discussed With Above Provider: 21:45 Instructed by Provider To: Other - Dr. Gallardo discusses patient's case with Dr. Meade. Dr. Meade recommends giving the patient. At 0159 04/27/19, Dr. Gallardo discusses patient's case with Dr. Everett, hospitalist. Dr. Everett agrees to admit the patient. Discharge - Sign-Out/Discharge Documenting (check all that apply): Patient Departure - admit Patient Received Moderate/Deep Sedation with Procedure: No - Discharge Plan Condition: Stable Disposition: ADMITTED TO [facility] - Billing Disposition and Condition Condition: STABLE Disposition: Admitted to [facility] - Attestation Statements Document Initiated by Dwayne: Yes Documenting Scribe: Toby Parks Provider For Whom Dwayne is Documenting (Include Credential): Dr. Cass Gallardo MD Scribe Attestation: Toby Xavier scribed for Dr. Cass Gallardo MD on 04/27/19 at 0307. Scribe Documentation Reviewed: Yes Provider Attestation: The documentation as recorded by the Toby velazquez accurately reflects the service I personally performed and the decisions made by me, Dr. Cass Gallardo MD Status of Scribe Document: Viewed NIH Scale - NIH Scale Level of Consciousness: Alert/Keenly Responsive Ask Patient the Month and His/Her Age: Both Correct Ask Pt to Open/Close Eyes and Variety Performer/Release Non-Paretic Hand: Both Correctly Best Gaze (Only Horizontal Eye Movement): Normal Visual Field Testing: No Visual Loss Facial Paresis-Pt to Smile & Close Eyes or Grimace Symmetry: Normal/Symmetrical Motor Function - Right Arm: No Drift-Holds 10 Seconds Motor Function - Left Arm: No Drift-Holds 10 Seconds Motor Function - Right Leg: No Drift-Holds 10 Seconds Motor Function - Left Leg: No Drift-Holds 10 Seconds Limb Ataxia-Must be out of Proportion to Weakness Present: Absent - patient has difficulty walking because of being off balance. Sensory (Use Pinprick to Test Arms/Legs/Trunk/Face): Normal Best Language (Describe Picture, Name Items): No Aphasia Dysarthria (Read Several Words): Normal Extinction and Inattention: No Abnormality Total Score: 0
[2019-04-26] MEDS ORDERED: ALTEPLASE IV ONE (21:47)
[2019-04-26] MEDS ORDERED: Alteplase* 100 MG VIAL IVPB ONE (21:48)
[2019-04-26 21:49] LABS: ABS Eosinophils 0.1 10^3/ul (0-0.6); ABS Lymphocytes 2.7 10^3/ul (1.0-4.8); ABS Monocytes 0.6 10^3/ul (0-0.8); ABS Neutrophils 3.6 10^3/ul (1.5-7.7); Eosinophil % 0.9 %; Hematocrit 38 % (35-47); Hemoglobin 13.2 g/dL (12.0-16.0); Lymphocyte % 37.8 %; Mean Corpuscular HGB Conc 35 g/dL (31-36); Mean Corpuscular Hemoglobin 32 pg (27-31); Mean Corpuscular Volume 92 fL (80-97); Mean Platelet Volume 8.1 fL (7.4-10.4); Nucleated Red Blood Cells % 0.1; Platelet Count 317 10^3/uL (150-450); Red Blood Count 4.12 10^6 /uL (3.70-4.87); Red Cell Distribution Width 15 % (10-15)
[2019-04-26] MEDS ORDERED: Alteplase* 100 MG VIAL ONE (21:55)
[2019-04-26 22:06] LABS: Albumin 3.8 g/dL (3.2-5.2); Albumin/Globulin Ratio 1.3 (1-3); BUN/Creatinine Ratio 18.1 (8-20); Calcium 8.9 mg/dL (8.6-10.3); EGFR African American 56.9 (>60); HDL Cholesterol 73.4 mg/dL; Potassium 3.6 mmol/L (3.5-5.0); Total Bilirubin 0.3 mg/dL (0.2-1.0); Total Protein 6.8 g/dL (6.4-8.9)
[2019-04-26] MEDS ORDERED: Iodixanol* (CONTRAST) 320 MG/ML 100 ML SDV IV ONE (22:12)
[2019-04-26 22:13] LABS: Activated Partial Thrombo Time 33.1 seconds (26.0-38.0); INR 0.93 (0.82-1.09)
[2019-04-27] MEDS ORDERED: Ibuprofen TAB* 800 MG PO ONE (00:28)
[2019-04-27] MEDS ORDERED: Amoxicillin/Clavulanate TAB* 875 MG PO ONE (00:28)
[2019-04-27 01:36] LABS: Urine Appearance Cloudy; Urine Bacteria Absent (Absent); Urine Bilirubin Negative (Negative); Urine Blood 1+ (Negative); Urine Color Yellow; Urine Glucose Negative (Negative); Urine Ketones Negative (Negative); Urine Nitrite Negative (Negative); Urine Protein Negative (Negative); Urine Red Blood Cell 1+(3-5/hpf) (Absent); Urine Specific Gravity 1.046 (1.010-1.030); Urine Squamous Epithelial Cell Present (Absent); Urine Urobilinogen Negative (Negative); Urine White Blood Cell 2+(11-20/hpf) (Absent)
[2019-04-27] MEDS ORDERED: Acetaminophen TAB* 325 MG PO PRN (02:07)
[2019-04-27] MEDS ORDERED: Albuterol HFA INHALER* 8 gm MDI INH PRN (03:35)
[2019-04-27 04:27] LABS: TSH (Thyroid Stimulating Horm) 4.41 mcIU/mL (0.34-5.60)
[2019-04-27] MEDS: Mometasone/Formoter 200/5 MDI INH SCH ×3 (07:39→22:29)
[2019-04-27] MEDS: Pantoprazole TAB * 40 MG TAB PO SCH (08:20)
[2019-04-27] MEDS: Cyanocobalamin TAB* 500 MCG PO SCH (08:20)
[2019-04-27] MEDS: BuPROPion XL* 150 MG TAB.XL PO SCH (08:20)
[2019-04-27] MEDS ORDERED: Diazepam TAB(*) 5 MG PO ONE (09:01)
--- NOTE | 2019-04-27 09:20 | HP ---
CC: Leslie Simental MD; Moi Lezama MD * HISTORY AND PHYSICAL: DATE OF ADMISSION: 04/27/19 PRIMARY CARE PHYSICIAN: Leslie Simental MD NEUROLOGIST: Moi Lezama MD HEALTHCARE PROXY: Her sonTru and his , Veena are her POA. CODE STATUS: Full. CHIEF COMPLAINT: Acute onset of vertigo and unsteadiness. HISTORY OF PRESENT ILLNESS: Ms. Martinez is a 63-year-old woman with a history of likely CVA last year, hypertension, fibromyalgia, chronic fatigue, IBS, cognitive impairment, who is presenting with acute onset of unsteadiness. She reports that at 7:00 p.m., she felt her cheeks get very hot and upon standing, she felt like the entire room was spinning, this caused significant gait unsteadiness. So, she called 911 to bring her to the emergency room given fear for recurrence of stroke. She denied focal weakness or difficulty with speech. She does report word finding issues that is chronic since last year and has not acutely gotten worse. She also denies fevers, chills, chest pain, shortness of breath, abdominal pain, dysuria. In the emergency room, she was noted to have significant difficulty ambulating. Brain CT without acute intracranial pathology. A head CT was also unremarkable from prior. The patient had Tele stroke consult and was recommended to give TPA , which was administered at approximately 10:00 p.m. She was not given any other medications. She was asked to be admitted to the ICU for post-TPA monitoring. REVIEW OF SYSTEMS: A complete 10-point review of systems was performed and pertinent positives and negatives as listed in the HPI. PAST MEDICAL HISTORY: 1. TIA versus small lacunar stroke in 2018 treated with TPA at [facility] [place] [place]. At that time, a TTE had a negative bubble study. A brain MRI was without acute findings , but showed chronic extensive small vessel ischemia changes. In 2016, the patient had similar symptoms, but does not know if she was diagnosed with stroke versus TIA. 2. Cognitive delay versus dementia, unclear etiology of memory impairment, following with Moi Lezama in Neurology Clinic. 3. Fibromyalgia and chronic fatigue syndrome. 4. IBS. 5. Idiopathic peripheral neuropathy. 6. COPD. 7. Major depressive disorder. 8. Hypertension. 9. Eight first trimester miscarriages. PAST SURGICAL HISTORY: 1. Surgery for ectopic pregnancies x2. 2. Repair of fallopian tubes. 3. Lysis of adhesions. 4. Breast reduction. 5. Right breast surgery following breast reduction for infection. 6. D and C. HOME MEDICATIONS: 1. Nortriptyline 10 mg at night. 2. Bupropion SR 450 daily. 3. Triamterene/hydrochlorothiazide 37.5-25 half tablet daily. 4. Ambien 10 mg at night. 5. Clopidogrel 75 mg daily. 6. Atorvastatin 40 mg nightly. 7. Advair Diskus 1 puff twice a day. 8. DuoNeb as needed for shortness of breath. 9. Vitamin B complex. 10. Diphenhydramine 25 mg as needed. 11. Cyclobenzaprine 10 mg as needed twice a day for muscle spasm. 14. Omeprazole 20 mg daily. ALLERGIES: No known drug allergies. FAMILY HISTORY: Mother at age 71 from stomach cancer. Dad at age 65 with non-Hodgkin's lymphoma. SOCIAL HISTORY: Patient lives alone. She is a never smoker, alcohol drinker or recreational drug user. 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 Her son, Tru Ramachandran and his , Veena are her POA. The patient states she has a home health aide. PHYSICAL EXAMINATION GENERAL: She is a well-appearing woman in no acute distress, with somewhat delayed responses to questions. VITAL SIGNS: The patient is afebrile. Heart rate 80, blood pressure 111/79, respiratory rate 18, oxygen saturation 95% on room air. HEENT: With OP clear. Moist mucous membranes. NECK: Without cervical lymphadenopathy. No JVD. LUNGS: Clear to auscultation bilaterally. HEART: Regular rate and rhythm. No murmurs, gallops, or rubs. ABDOMEN: Soft, nontender, nondistended. No guarding or rebound. No organomegaly. EXTREMITIES: Warm and well perfused. No evidence of edema. NEUROLOGIC: A and O x3. Speech fluent. Delayed with repetition, but answers correctly. CN II through XII intact. Sensation intact to light touch bilaterally over her face, arms, and legs. Strength 5/5 with elbow flexion and extension and hip flexion and knee flexion and extension bilaterally. Gait not tested. PSYCH: Appears euthymic, but with odd affect. SKIN: Warm and dry without rash. DIAGNOSTIC STUDIES AND LAB DATA: Labs were reviewed and significant for, CBC and coags unremarkable. Creatinine 1.16, which may be patient's baseline. LDL cholesterol 49. UA significant for 1+ blood, RBCs seen and squamous epithelial cells present with 2+ wbc's and LE, but without bacteria. Cornelius CT without acute intracranial pathology appreciated. The brain has a similar appearance of CT from 2 months ago. Head CTA without acute findings, no changes since prior CTA study in May of 2018. EKG with normal sinus rhythm, rate 98 with low voltage, T-waves flattening in V2 through V6, which is similar to her previous EKG from 2 months prior. ASSESSMENT AND PLAN: A 63-year-old woman with history of possible recent cerebrovascular accident versus transient ischemic attack, hypertension, cognitive impairment, fibromyalgia, chronic fatigue syndrome and IBS, who is presenting to the emergency room after recurrence of acute onset vertigo and gait unsteadiness. Her presentation was concerning for an acute cerebrovascular accident and she is now status post TPA on 04/26/19 at 2200 with initial imaging unremarkable. 1. Possible cerebrovascular accident. The patient is now status post TPA on at approximately 2210. Repeat CT is ordered for 24 hours after TPA. She will be admitted to ICU for post-TPA monitoring. A brain MRI has also been ordered. We will now order TTE with bubble given recent normal study last year. She will undergo neuro checks per protocol and bleeding precautions have been initiated. We will avoid all antiplatelet drugs and NSAIDs for the next 24 hours with bedrest. Bedside swallow exam, as well as PT/OT have been ordered. We will hold off on further antiplatelet therapy for now, but we will initiate per pending neuro recommendations. 2. Hypertension. We will monitor the patient off of her home diuretics given that last admission, she was noted to have low normal blood pressures on this medication and her blood pressure is currently 111/79. Continue to monitor and reinitiate as needed. 3. Chronic obstructive pulmonary disease. Continue the patient's home inhalers with albuterol as needed. 4. Major depressive disorder. Continue bupropion home dose. Continue Ambien 10 mg daily as needed for sleep. 5. Fibromyalgia. Continue home nortriptyline 10 mg at bedtime. 6. Gastroesophageal reflux disease. Continue home omeprazole 20 mg daily. 7. DVT prophylaxis. We will initiate SCDs. Medical prophylaxis is contraindicated given recent TPAs. 8. Code Status. Full code. TIME SPENT: Approximately 60 minutes was spent on admission of this patient, more than of half of which was spent at the bedside for interview and exam. [id number]/CPS #: [id number]
--- NOTE | 2019-04-27 16:52 | PN ---
Subjective Date of Service: 04/27/19 Interval History: patient seen in ICU. she feels better but still complains of headache. s/p TPA 04/26/19 in the ER. Neuro consulted with Dr. Lezama. MRI brain no acute infarct. CT head scheduled for this evening to follow up Post TPA. She still have headache but no weakness that she reports Past Medical History: Unchanged from Admission Objective Active Medications: Acetaminophen (Tylenol Tab*) 975 mg PO Q8H PRN PRN Reason: FEVER/PAIN Albuterol (Ventolin Hfa Inhaler*) 2 puff INH Q4HR PRN PRN Reason: COUGH Last Admin: 04/27/19 12:44 Dose: 2 puff Atorvastatin Calcium (Lipitor*) 40 mg PO 2100 ESTEFANÍA Bupropion HCl (Wellbutrin Xl *) 450 mg PO DAILY [facility] Last Admin: 04/27/19 08:20 Dose: 450 mg Cyanocobalamin (Vitamin B12 Tab*) 500 mcg PO DAILY [facility] Last Admin: 04/27/19 08:20 Dose: 500 mcg Cyclobenzaprine HCl (Flexeril Tab*) 10 mg PO BID PRN PRN Reason: SPASMS Mometasone Furoate/Formoterol Fumar (Dulera 200/5 Mdi*) 1 puff INH BID [facility] Last Admin: 04/27/19 08:21 Dose: 1 dose Nortriptyline HCl (Pamelor Cap*) 10 mg PO BEDTIME ESTEFANÍA Pantoprazole Sodium (Protonix Tab*) 40 mg PO DAILY [facility] Last Admin: 04/27/19 08:20 Dose: 40 mg Zolpidem Tartrate (Ambien Tab*) 5 mg PO BEDTIME PRN PRN Reason: SLEEP Vital Signs - 8 hr 04/27/19 04/27/19 04/27/19 09:00 09:15 09:30 Temperature Pulse Rate 85 86 88 Respiratory 23 31 22 Rate Blood Pressure 141/88 (mmHg) O2 Sat by Pulse 94 94 93 Oximetry 04/27/19 04/27/19 04/27/19 09:45 10:00 10:02 Temperature Pulse Rate 86 85 Respiratory 18 16 18 Rate Blood Pressure 107/80 (mmHg) O2 Sat by Pulse 92 92 Oximetry 04/27/19 04/27/19 04/27/19 10:15 10:30 11:00 Temperature Pulse Rate 86 90 Respiratory 15 15 16 Rate Blood Pressure (mmHg) O2 Sat by Pulse 94 94 Oximetry 04/27/19 04/27/19 04/27/19 11:31 11:33 11:34 Temperature 98.1 F Pulse Rate 87 Respiratory 5 16 Rate Blood Pressure 140/95 (mmHg) O2 Sat by Pulse 96 Oximetry 04/27/19 04/27/19 04/27/19 11:45 12:00 12:15 Temperature Pulse Rate 91 89 92 Respiratory 18 23 15 Rate Blood Pressure 154/135 (mmHg) O2 Sat by Pulse 98 97 96 Oximetry 04/27/19 04/27/19 04/27/19 12:30 12:45 13:00 Temperature Pulse Rate 93 91 95 Respiratory 14 15 18 Rate Blood Pressure 148/98 (mmHg) O2 Sat by Pulse 95 93 95 Oximetry 04/27/19 04/27/19 04/27/19 13:15 13:30 13:45 Temperature Pulse Rate 93 91 92 Respiratory 23 21 14 Rate Blood Pressure (mmHg) O2 Sat by Pulse 95 92 93 Oximetry 04/27/19 04/27/19 04/27/19 14:00 14:15 14:30 Temperature Pulse Rate 92 91 91 Respiratory 18 18 19 Rate Blood Pressure 128/89 (mmHg) O2 Sat by Pulse 91 93 94 Oximetry 04/27/19 04/27/19 04/27/19 14:45 15:00 15:15 Temperature Pulse Rate 95 90 92 Respiratory 22 16 18 Rate Blood Pressure 122/81 (mmHg) O2 Sat by Pulse 96 94 94 Oximetry 04/27/19 04/27/19 04/27/19 15:19 15:30 15:45 Temperature 98.0 F Pulse Rate 92 89 Respiratory 17 16 Rate Blood Pressure (mmHg) O2 Sat by Pulse 94 94 Oximetry 04/27/19 16:00 Temperature Pulse Rate 91 Respiratory 30 Rate Blood Pressure 118/79 (mmHg) O2 Sat by Pulse 96 Oximetry Oxygen Devices in Use Now: None Appearance: awake, alert. no distress Eyes: No Scleral Icterus Ears/Nose/Mouth/Throat: NL Teeth, Lips, Gums, Mucous Membranes Moist Neck: Trachea Midline Respiratory: Symmetrical Chest Expansion and Respiratory Effort, Clear to Auscultation Cardiovascular: NL Sounds; No Murmurs; No JVD, RRR, No Edema Extremities: No Edema Skin: No Rash or Ulcers Neurological: Alert and Oriented x 3 Result Diagrams: 04/26/19 21:41 04/26/19 21:41 Microbiology and Other Data: Microbiology 04/27/19 02:56 Nasal Screen MRSA (PCR) - Final Nasal Mrsa Not Detected Assess/Plan/Problems-Billing Assessment: - Patient Problems (1) TIA (transient ischemic attack) Current Visit: Yes Status: Acute Code(s): G45.9 - TRANSIENT CEREBRAL ISCHEMIC ATTACK, UNSPECIFIED SNOMED Code(s): 355382702 Comment: - s/p TPA 04/26/19 in the ER - MRI 04/27/19 no acute infarct - Follow up CT brain this evening post tPA - Follow up formal consult from Dr. Lezama - Avoid aspirin and plavix for now at least 24 hrs post tPA (2) CVA (cerebral vascular accident) Current Visit: No Status: Acute Code(s): I63.9 - CEREBRAL INFARCTION, UNSPECIFIED SNOMED Code(s): 302295150 Comment: - Hx of CVA 2018 s/p tPA in 2018 (3) Depression Current Visit: No Status: Acute Code(s): F32.9 - MAJOR DEPRESSIVE DISORDER, SINGLE EPISODE, UNSPECIFIED SNOMED Code(s): 92600869 Comment: - continue with Wellbutrin and nortriptyline (4) HTN (hypertension) Current Visit: No Status: Acute Code(s): I10 - ESSENTIAL (PRIMARY) HYPERTENSION SNOMED Code(s): 55298515
--- NOTE | 2019-04-27 17:11 | CONS ---
NEUROLOGICAL EVALUATION: DATE OF CONSULT: 04/27/19 PATIENT OF: Dr. Olmstead, Dr. Simental. HISTORY OF PRESENT ILLNESS: This is a 63-year-old woman who had a likely CVA last year, status post tPA; hypertension; white matter disease with cognitive impairment who presented with acute onset of unsteadiness and difficulty walking. This began at about 7 p.m. and is associated with dizziness and significant gait unsteadiness. She had no focal weakness or acute speech problems, although she has had difficulty speaking and finding words since last year, this has been unchanged. She had a CT scan that was unchanged from a prior study. She had apparently a telestroke consult, which I could not finding the chart today, but with recommendation of giving tPA despite an NIH stroke scale of 0 because of difficulty ambulating and she got tPA and was admitted to the ICU. She has had a workup in the past including MRI scan showing extensive white matter disease and a TTE with negative bubble. PAST MEDICAL HISTORY: She has irritable bowel syndrome, a peripheral neuropathy , COPD, depression, hypertension. PAST SURGICAL HISTORY: She is status post surgery for ectopic pregnancies x2, repair of fallopian tubes, lysis of adhesions, breast reduction, right breast surgery, and a D and C. MEDICATIONS: She is on: 1. Nortriptyline at home 10 mg. 2. Bupropion 450 daily. 3. Triamterene/hydrochlorothiazide 37.5/25 half tab daily. 4. Ambien 10 mg daily. 5. Plavix 75 mg daily. 6. Lipitor 40 mg daily. 7. Advair Diskus 1 puff twice a day. 8. DuoNeb as needed for shortness of breath. 9. Benadryl 25 mg daily. 10. Cyclobenzaprine 10 mg twice a day as needed for muscle spasm. 11. Omeprazole 20 mg daily. ALLERGIES: She has no known drug allergies. FAMILY HISTORY: Mother at 71 from stomach cancer. Father at 65 from non- Hodgkin's lymphoma. SOCIAL HISTORY: She lives alone. Does not smoke, drink, or use drinks. PHYSICAL EXAM: She is currently afebrile with temperature 98.1, pulse 90, respirations 16, blood pressure 122/81. She is alert and oriented with normal speech and comprehension. Cranial nerves II through XII are intact. Discs were sharp. Motor exam revealed normal tone and strength. Gait was not tested. She is status post tPA and is at bedrest now to prevent falls given her gait problems. Reflexes were trace to 1 with downgoing toes. Chest: Clear. Cardiovascular: Regular rate and rhythm. Abdomen is soft with positive bowel sounds. DIAGNOSTIC STUDIES/LAB DATA: Her MRI scan showed significant white matter disease but no acute stroke. Her CTA, final report is pending, this is my impression: Her CTA was unchanged from May 2018, which showed no significant large vessel occlusion. She is not in AFib. Her labs included normal CBC, INR, PTT. CMP unremarkable other than creatinine of 1.16. Her LDL was 49, TSH 4.41. UA had 2+ leuk esterase. IMPRESSION AND PLAN: Suze had a possible stroke or transient ischemic attack yesterday and is status post tPA. She will be getting a CT scan 24 hours after and will be put on aspirin and Plavix for a month and then to go back to single therapy platelet medication. She has significant white matter disease and that may be related to her recurrent stroke and this will be difficult to treat. She can continue with her statin as is. Thank you for sharing her case. [id number]/[facility] #: [id number] NAINA
[2019-04-27] MEDS: Nortriptyline CAP* 10 MG PO SCH (20:47)
[2019-04-27] MEDS: Atorvastatin* 40 MG TAB PO SCH (20:47)
[2019-04-28] MEDS: Cyclobenzaprine TAB* 10 MG PO PRN ×2 (02:16→22:25)
[2019-04-28] MEDS: Zolpidem TAB* 10 MG PO PRN ×2 (02:16→22:22)
[2019-04-28 06:56] LABS: ABS Eosinophils 0.1 10^3/ul (0-0.6); ABS Lymphocytes 2.2 10^3/ul (1.0-4.8); ABS Monocytes 0.5 10^3/ul (0-0.8); Eosinophil % 1.4 %; Hematocrit 36 % (35-47); Hemoglobin 12.7 g/dL (12.0-16.0); Lymphocyte % 31.8 %; Mean Corpuscular HGB Conc 35 g/dL (31-36); Mean Corpuscular Hemoglobin 32 pg (27-31); Mean Corpuscular Volume 92 fL (80-97); Mean Platelet Volume 8.3 fL (7.4-10.4); Nucleated Red Blood Cells % 0.1; Platelet Count 286 10^3/uL (150-450); Red Blood Count 3.95 10^6 /uL (3.70-4.87); Red Cell Distribution Width 15 % (10-15); White Blood Count 6.8 10^3/uL (3.5-10.8)
[2019-04-28] MEDS: Mometasone/Formoter 200/5 MDI INH SCH ×2 (07:10→19:29)
[2019-04-28 07:17] LABS: BUN/Creatinine Ratio 17.6 (8-20); Calcium 8.5 mg/dL (8.6-10.3); EGFR African American 75.3 (>60); EGFR Non-African American 62.2 (>60); Magnesium 1.8 mg/dL (1.9-2.7); Phosphorus 3.4 mg/dL (2.5-5.0); Potassium 3.3 mmol/L (3.5-5.0)
[2019-04-28] MEDS: Pantoprazole TAB * 40 MG TAB PO SCH (08:22)
[2019-04-28] MEDS: Cyanocobalamin TAB* 500 MCG PO SCH (08:22)
[2019-04-28] MEDS: BuPROPion XL* 150 MG TAB.XL PO SCH (08:22)
[2019-04-28] MEDS: Aspirin EC TAB* 81 MG TAB.EC PO SCH (10:45)
[2019-04-28] MEDS: Potassium Chlor TAB* 20 MEQ TAB.ER PO SCH (10:45)
[2019-04-28] MEDS: Clopidogrel TAB* 75 MG PO SCH (10:45)
--- NOTE | 2019-04-28 15:43 | PN ---
Subjective Date of Service: 04/28/19 Interval History: seem today, feels better. PT saw evaluated patient, approved for home physical therapy. Off bed rest. Will start plavix and aspirin as per neuro recommendations. potential discharge today after evaluation by neurology. Past Medical History: Unchanged from Admission Objective Active Medications: Acetaminophen (Tylenol Tab*) 975 mg PO Q8H PRN PRN Reason: FEVER/PAIN Albuterol (Ventolin Hfa Inhaler*) 2 puff INH Q4HR PRN PRN Reason: COUGH Last Admin: 04/27/19 12:44 Dose: 2 puff Aspirin (Aspirin Ec Tab*) 81 mg PO DAILY [facility] Last Admin: 04/28/19 10:45 Dose: 81 mg Atorvastatin Calcium (Lipitor*) 40 mg PO 2100 [facility] Last Admin: 04/27/19 20:47 Dose: 40 mg Bupropion HCl (Wellbutrin Xl *) 450 mg PO DAILY [facility] Last Admin: 04/28/19 08:22 Dose: 450 mg Clopidogrel Bisulfate (Plavix Tab*) 75 mg PO DAILY [facility] Last Admin: 04/28/19 10:45 Dose: 75 mg Cyanocobalamin (Vitamin B12 Tab*) 500 mcg PO DAILY [facility] Last Admin: 04/28/19 08:22 Dose: 500 mcg Cyclobenzaprine HCl (Flexeril Tab*) 10 mg PO BID PRN PRN Reason: SPASMS Last Admin: 04/28/19 02:16 Dose: 10 mg Mometasone Furoate/Formoterol Fumar (Dulera 200/5 Mdi*) 1 puff INH BID [facility] Last Admin: 04/28/19 07:10 Dose: 1 puff Nortriptyline HCl (Pamelor Cap*) 10 mg PO BEDTIME [facility] Last Admin: 04/27/19 20:47 Dose: 10 mg Pantoprazole Sodium (Protonix Tab*) 40 mg PO DAILY [facility] Last Admin: 04/28/19 08:22 Dose: 40 mg Potassium Chloride (Klor Con Er Tab*) 20 meq PO DAILY [facility] Last Admin: 04/28/19 10:45 Dose: 20 meq Zolpidem Tartrate (Ambien Tab*) 5 mg PO BEDTIME PRN PRN Reason: SLEEP Last Admin: 04/28/19 02:16 Dose: 5 mg Vital Signs - 8 hr 04/28/19 04/28/19 04/28/19 08:00 13:39 15:29 Temperature 97.6 F 98.3 F Pulse Rate 83 88 Respiratory 16 16 18 Rate Blood Pressure 112/59 115/74 (mmHg) O2 Sat by Pulse 99 97 Oximetry Oxygen Devices in Use Now: None Appearance: awake, alert no distress Ears/Nose/Mouth/Throat: NL Teeth, Lips, Gums, Mucous Membranes Moist Neck: NL Appearance and Movements; NL JVP Respiratory: Symmetrical Chest Expansion and Respiratory Effort, Clear to Auscultation Cardiovascular: NL Sounds; No Murmurs; No JVD, No Edema Abdominal: NL Sounds; No Tenderness; No Distention Extremities: No Edema Neurological: Alert and Oriented x 3 Result Diagrams: 04/28/19 05:51 04/28/19 05:51 Microbiology and Other Data: Microbiology 04/27/19 02:56 Nasal Screen MRSA (PCR) - Final Nasal Mrsa Not Detected Assess/Plan/Problems-Billing Assessment: - Patient Problems (1) TIA (transient ischemic attack) Current Visit: Yes Status: Acute Code(s): G45.9 - TRANSIENT CEREBRAL ISCHEMIC ATTACK, UNSPECIFIED SNOMED Code(s): 940825237 Comment: - s/p TPA 04/26/19 in the ER - MRI 04/27/19 no acute infarct - Follow up CT brain post tPA no bleed - Dr. Lezama consult appreicated. Will start aspirin and plavix for one month than plavix only as per preadmission meds - continue lipitor 40 mg hs, LDL 49 (2) CVA (cerebral vascular accident) Current Visit: No Status: Acute Code(s): I63.9 - CEREBRAL INFARCTION, UNSPECIFIED SNOMED Code(s): 826351327 Comment: - Hx of CVA 2018 s/p tPA in 2018, but no acute CVA at this admission (3) Depression Current Visit: No Status: Acute Code(s): F32.9 - MAJOR DEPRESSIVE DISORDER, SINGLE EPISODE, UNSPECIFIED SNOMED Code(s): 38483729 Comment: - continue with Wellbutrin and nortriptyline (4) HTN (hypertension) Current Visit: No Status: Acute Code(s): I10 - ESSENTIAL (PRIMARY) HYPERTENSION SNOMED Code(s): 36616601 Comment: - resume dyazide (5) DVT prophylaxis Current Visit: No Status: Acute Code(s): EEA6188 - SNOMED Code(s): 400717242 Comment: YOLANDAQ
[2019-04-28] MEDS: Heparin VIAL(*) 5000 UNITS/ML VIAL (FIVE THOUSAND) SUBCUT SCH (20:37)
[2019-04-28] MEDS: Nortriptyline CAP* 10 MG PO SCH (20:37)
[2019-04-28] MEDS: Atorvastatin* 40 MG TAB PO SCH (20:37)
[2019-04-29] MEDS: Heparin VIAL(*) 5000 UNITS/ML VIAL (FIVE THOUSAND) SUBCUT SCH (05:48)
[2019-04-29 07:58] VITALS: BP 119/72
[2019-04-29] MEDS: Mometasone/Formoter 200/5 MDI INH SCH (08:13)
[2019-04-29] MEDS: BuPROPion XL* 150 MG TAB.XL PO SCH (08:51)
[2019-04-29] MEDS: Cyanocobalamin TAB* 500 MCG PO SCH (08:52)
[2019-04-29] MEDS: Pantoprazole TAB * 40 MG TAB PO SCH (08:52)
[2019-04-29] MEDS: Potassium Chlor TAB* 20 MEQ TAB.ER PO SCH (08:52)
[2019-04-29] MEDS: Aspirin EC TAB* 81 MG TAB.EC PO SCH (08:52)
[2019-04-29] MEDS: Clopidogrel TAB* 75 MG PO SCH (08:52)
[2019-04-29] MEDS ORDERED: Triamterene/HCTZ 37.5-25 MG* CAP PO SCH (09:00)
--- NOTE | 2019-04-29 11:42 | DS ---
CC: Dr. Moi Lezama; Dr. Leslie Simental DISCHARGE SUMMARY: DATE OF ADMISSION: 04/27/19 DATE OF DISCHARGE: 04/29/19 HOSPITAL COURSE: The patient presented to the emergency room on 04/27/[address] [facility] th an acute onset of unsteady gait and described as a vertigo with a prior history of CVA, hypertensi on, fibromyalgia, chronic fatigue syndrome, cognitive impairment and given the history of CVA that re quired tPA in May 2018, it was recommended to proceed with tPA treatment on that hospital presenta tion. She did receive tPA on 04/27/19. Consultation with Neurology was obtained, was admitted to the intensive care. The emergency room discussed the care with Dr. Meade, the stroke attending at [facility] in [facility], who recommended the tPA treatment. She remained stable throughout the hospi sadaf course. She remained in ICU for 24 hours post tPA. Following day, she had an MRI of the brain o n 04/28/19, which reveals no acute intracranial abnormality, moderate small vessel ischemic disease a nd 24-hour post tPA, CT of the brain on 04/27/19 revealed no acute intracranial finding or changes fr om her admission CT from the ER. She was transferred to the medical floor on tele. She remained in sinus rhythm. Worked with physical therapy and she was cleared for physical therapy at home. Visit with the patient along with a case checker team, she elected to be released to her son, going to be l iving with him. She is fairly independent with minimal assist, therefore she deemed stable for disch arge without short term rehab. PHYSICAL EXAMINATION ON DISCHARGE: Vital Signs: Temperature 97.5, pulse 81, respiratory rate 16, sa tting 98%, blood pressure 119/72. General: She is awake, alert, oriented. Head and Neck: Normocep halic, atraumatic. Supple. Lungs: Clear to auscultation bilaterally. Cardiovascular: S1, S2. Reg ular rate and rhythm. Abdomen: Positive bowel sounds, soft, nontender, nondistended. Extremities: No pedal edema. Moving upper and lower extremities. Gait intact. No JELLY MAKER deficit. No nystagmus. INPATIENT DIAGNOSTIC STUDIES: The patient had CT of the brain on 04/26/19 on ER admission, which rev ealed no acute intracranial pathology, no change from a similar scan 2 months ago. CTA head and neck 04/26/19 via the ER, no acute finding, no change since the prior CT study dated 05/28/18. Brain MRI on 04/27/19, no acute intracranial abnormality, moderate chronic small vessel ischemic dise ase. Brain CT on 04/27/19 24-hour post tPA, no acute intracranial finding. EKG; sinus rhythm, nonsp ecific ST-T wave changes, DE 182 msec, QTc 481, QRS 107. CONSULTATION: Neurology with Dr. Lezama. DISCHARGE MEDICATIONS: Continue home meds as follow: 1. Tylenol p.r.n. 2. Ventolin p.r.n. 3. Wellbutrin SR 450 mg daily. 4. B12 500 daily. 5. Flexeril 10 b.i.d. 6. Benadryl p.r.n. 7. Fluticasone/salmeterol 1 puff twice a day. 8. DuoNeb p.r.n. 9. Nortriptyline 10 mg daily. 10. Omeprazole 20 daily. 11. Vitamin B daily. 12. Ambien 10 daily. New medication on discharge: 1. Plavix 75 mg daily as per home to continue indefinitely. 2. Aspirin 81 mg daily for 1 month only, then discontinue the aspirin and only continue the Plavix. 3. Lipitor 40 daily. 4. Potassium 20 mEq daily. 5. Triamterene with hydrochlorothiazide 37.5/25 half tab daily. DISCHARGE INSTRUCTIONS: Follow up with her primary care in 1 to 2 weeks. Visiting nurse service ref erral was made. Take all medications as prescribed. DISCHARGE CONDITION: Stable. DISCHARGE DISPOSITION: Home. [id number]/[facility] #: [id number]
== END 2019-04-29 13:54 | disposition home health service (06) | DRG 63 ==
LOC: ED 20:59 → ICU 04-27 02:07 → MEDTELE 04-27 23:57
PROVIDERS: ADMIT Internal Medicine; ATTEND Internal Medicine
DX: G45.9 Transient cerebral ischemic attack, unspecified (principal); I10 Essential (primary) hypertension; M79.7 Fibromyalgia; R53.82 Chronic fatigue, unspecified; K58.9 Irritable bowel syndrome, unspecified; G31.84 Mild cognitive impairment of uncertain or unknown etiology; G60.9 Hereditary and idiopathic neuropathy, unspecified; J44.9 Chronic obstructive pulmonary disease, unspecified; F32.9 Major depressive disorder, single episode, unspecified; K21.9 Gastro-esophageal reflux disease without esophagitis; M19.90 Unspecified osteoarthritis, unspecified site; R51 Headache; M81.0 Age-related osteoporosis without current pathological fracture; F03.90 Unspecified dementia, unspecified severity, without behavioral disturbance, psychotic disturbance, mood disturbance, and anxiety; F41.0 Panic disorder [episodic paroxysmal anxiety]; R29.700 NIHSS score 0; Z86.73 Personal history of transient ischemic attack (TIA), and cerebral infarction without residual deficits; Z79.02 Long term (current) use of antithrombotics/antiplatelets; Z80.0 Family history of malignant neoplasm of digestive organs; Z80.7 Family history of other malignant neoplasms of lymphoid, hematopoietic and related tissues; Z91.040 Latex allergy status; Z82.49 Family history of ischemic heart disease and other diseases of the circulatory system; Z72.89 Other problems related to lifestyle
CPT/HCPCS: 36415; 70450; 70496; 70498; 70551; 80048; 80053; 80061; 81003; 81015; 83605; 83735; 84100; 84443; 84484; 85025; 85610; 85730; 87086; 87641; 93005; 94640; 99285; A9270-GY; G8978-GP-CI; G8979-GP-CI; G8987-GO-CI; G8988-GO-CI; G8989-GO-CI; J1644; J2997; Q9967

== ENCOUNTER 2023-04-22 20:56 | Observation (INO) ==
[2023-04-22 21:29] LABS: ABS Basophils 0.1 10^3/uL (0.0-0.1); ABS Eosinophils 0.1 10^3/uL (0.0-0.5); ABS Lymphocytes 2.8 10^3/uL (1.0-4.8); ABS Monocytes 0.5 10^3/uL (0.0-0.9); ABS Neutrophils 3.5 10^3/uL (1.5-7.6); Eosinophil % 1.1 %; Hemoglobin 13.3 g/dL (11.5-14.3); Lymphocyte % 40.3 %; Mean Corpuscular Hemoglobin 31.4 pg (27-33); Mean Corpuscular Volume 92.4 fL (80-97); Mean Platelet Volume 8.2 fL (7.5-11.2); Platelet Count 335 10^3/uL (150-450); Red Blood Count 4.22 10^6/uL (3.63-4.92); Red Cell Distribution Width 14.5 % (12-17)
[2023-04-22] MEDS ORDERED: Iodixanol (CONTRAST) 320 MG/ML 100 ML SDV IV ONE (21:36)
[2023-04-22 21:37] LABS: Activated Partial Thrombo Time 30.2 seconds (26.0-38.0); INR 0.96 (0.88-1.18)
[2023-04-22 21:45] LABS: Creatinine, Serum 0.97 mg/dL (0.51-0.95); Potassium 3.2 mmol/L (3.5-5.0)
[2023-04-22 21:46] LABS: Albumin 4.1 g/dL (3.2-5.2); Albumin/Globulin Ratio 1.5 (1-3); Calcium 9.2 mg/dL (8.6-10.3); Globulin 2.7 g/dL (2-4); Total Bilirubin 0.3 mg/dL (0.2-1.0); Total Protein 6.8 g/dL (6.4-8.9); eGFR CKD-EPI 63.6 (>60)
[2023-04-23] MEDS ORDERED: Albuterol HFA INHALER 8 gm MDI INH PRN (01:28)
[2023-04-23] MEDS: Enoxaparin 40 MG/0.4 ML SYR SUBCUT SCH ×2 (02:09→22:24)
[2023-04-23] MEDS ORDERED: Potassium Chlor 20 meq TAB.ER PO ONE (07:28)
[2023-04-23 07:48] LABS: Calcium 9.2 mg/dL (8.6-10.3); Creatinine, Serum 0.93 mg/dL (0.51-0.95); HDL Cholesterol 78.2 mg/dL; Magnesium 1.7 mg/dL (1.9-2.7); Potassium 2.8 mmol/L (3.5-5.0); eGFR CKD-EPI 66.9 (>60)
[2023-04-23] MEDS: Mometasone/Formoter 100/5 MDI INH SCH ×2 (08:06→19:08)
[2023-04-23] MEDS: Aspirin EC 81 mg TAB.EC (enteric coated) PO SCH (08:08)
[2023-04-23] MEDS: Fluticasone NASAL SPRAY 50MCG 16 gm SPRAY BTL INTRANASAL SCH (09:35)
[2023-04-23] MEDS: KCL 20 MEQ/100 ML IVPREMIX 20 MEQ/100 ML BAG IV SCH ×2 (12:32→16:39)
[2023-04-24] MEDS: Mometasone/Formoter 100/5 MDI INH SCH (08:03)
[2023-04-24 09:29] LABS: Calcium 8.9 mg/dL (8.6-10.3); Creatinine, Serum 0.89 mg/dL (0.51-0.95); Magnesium 1.8 mg/dL (1.9-2.7); Potassium 4.2 mmol/L (3.5-5.0); eGFR CKD-EPI 70.6 (>60)
[2023-04-24 11:03] VITALS: BP 141/68
[2023-04-24] MEDS: Aspirin EC 81 mg TAB.EC (enteric coated) PO SCH (11:47)
[2023-04-24] MEDS: Fluticasone NASAL SPRAY 50MCG 16 gm SPRAY BTL INTRANASAL SCH (13:51)
== END 2023-04-24 16:38 | disposition home or self-care (01) ==
LOC: EDHOLD 20:56 → ED 20:56 → SUATTDRO 23:53 → ICU 04-23 → EDHOLD 04-23 00:13 → MEDTELE 04-23 15:05
PROVIDERS: ADMIT Internal Medicine; ATTEND Internal Medicine